=== PATIENT | male | born 1965 | race Two or more races ===

== ENCOUNTER 2017-03-18 17:05 | Emergency (ER) | payer OTHER ==
[~2017-03-18] VITALS: Ht 167.6 cm; Wt 85.9 kg
[~2017-03-18 17:05] MED LIST: ACET500C4 PO; AMIT25TA9 PO; DOCU250C21 PO; GABA-531 PO; GLIP10TA9 PO; HYDR25TA PO; METF500T4 PO; MORP15T PO; PROZ10 PO; SENN-30 PO; SIMV-260 PO
[2017-03-18 17:22] LABS: GLUCOSE,POINT OF CARE 200 MG/DL (70-110)
[2017-03-18 18:36] VITALS: BP 128/71
[2017-03-18] MEDS ORDERED: TraMADol HCL 50 MG TABLET PO ONE (18:45)
[2017-03-18] MEDS ORDERED: CEPHALEXIN MONOHYDRATE 500 MG CAPSULE PO ONE (18:45)
[2017-03-18] MEDS ORDERED: SULFAMETHOX/TRIMETH DS 800-160 MG/TABLET PO ONE (18:45)
== END 2017-03-18 18:56 | disposition home or self-care (01) ==
LOC: EMS 17:06
DX: L03.116 Cellulitis of left lower limb (principal); I10 Essential (primary) hypertension; E11.9 Type 2 diabetes mellitus without complications; F17.210 Nicotine dependence, cigarettes, uncomplicated
CPT/HCPCS: 82962; 99284

== ENCOUNTER 2017-08-11 22:54 | Inpatient (IN) | payer OTHER ==
[~2017-08-11] VITALS: Ht 167.6 cm; Wt 89.0 kg
[~2017-08-11 22:54] MED LIST changes: -DOCU250C21 PO; +DOCU250C90 PO; +SENN-175 PO; -SENN-30 PO
[2017-08-11 23:08] LABS: GLUCOSE,POINT OF CARE 308 MG/DL (70-110)
[2017-08-11] MEDS ORDERED: ONDANSETRON HCL 4 MG/2 ML VIAL ONE (23:55)
[2017-08-11] MEDS ORDERED: MORPHINE SULFATE 10 MG/ML SYRINGE ONE (23:56)
[2017-08-12] MEDS ORDERED: MORPHINE SULFATE 10 MG/ML SYRINGE IVP ONE
[2017-08-12] MEDS ORDERED: ONDANSETRON HCL 4 MG/2 ML VIAL IVP ONE
[2017-08-12 00:23] LABS: BASOPHILS # (AUTO) 0.02 K/uL (0.00-0.20); BASOPHILS % (AUTO) 0.2 % (0.0-2.0); EOSINOPHILS % (AUTO) 0.01 % (1.0-6.0); HEMATOCRIT 49.4 % (41-53); HEMOGLOBIN 16.9 g/dL (13.5-17.5); LYMPHOCYTES # (AUTO) 0.7 K/uL (1.0-4.8); LYMPHOCYTES % (AUTO) 5.4 % (22.0-44.0); MEAN CORPUSCULAR HEMOGLOBIN 30.7 pg (26.0-34.0); MEAN CORPUSCULAR HGB CONC 34.2 G/dL (31.0-37.0); MEAN CORPUSCULAR VOLUME 90 fL (80-100); MONOCYTES # (AUTO) 0.3 K/uL (0.1-1.0); MONOCYTES % (AUTO) 2.3 % (2.0-9.0); NEUTROPHILS # (AUTO) 11.5 K/uL (1.8-7.7); PLATELET COUNT (AUTO) 174 K/uL (150-450); RED BLOOD CELL COUNT(AUTO) 5.49 MIL/uL (4.50-5.90); RED CELL DISTRIBUTION WIDTH 13.2 % (11.5-14.5)
[2017-08-12 00:24] LABS: NEUTROPHILS % (AUTO) 92.2 % (40.0-70.0); WHITE BLOOD COUNT (AUTO) 13.9 K/uL (4.5-11.0)
[2017-08-12 00:33] LABS: ANION GAP 13 mmol/L (8-16); CALCIUM, TOTAL 10.5 mg/dL (8.8-10.5); CARBON DIOXIDE 29 mmol/L (22-29); CHLORIDE 93 mmol/L (98-107); CREATININE 1.15 mg/dL (0.60-1.30); GLOMERULAR FILTR. RATE CALC > 60 mL/min (>60); SODIUM SERUM 135 mmol/L (136-145); UREA NITROGEN, BLOOD 15 mg/dL (7-18)
[2017-08-12 00:39] LABS: ALANINE AMINOTRANSFERASE 34 U/L (12-78); ALBUMIN 4.7 g/dL (3.4-5.0); ASPARTATE AMINOTRANSFERASE 19 U/L (15-37); BILIRUBIN,TOTAL 0.4 mg/dL (0.1-1.0)
[2017-08-12] MEDS ORDERED: HYDROmorphone 2 MG/ML SYRINGE IVP ONE ×2 (01:15→16:00)
[2017-08-12] MEDS ORDERED: SODIUM CHLORIDE 0.9% 100 ML ONE (01:54)
[2017-08-12] MEDS ORDERED: IOVERSOL 320 MG/ML 100 ML VIAL ONE (01:55)
[2017-08-12] MEDS ORDERED: 0.9% SODIUM CHLORIDE 10 ML SYRINGE IVP PRN (02:30)
[2017-08-12] MEDS ORDERED: ONDANSETRON HCL 4 MG/2 ML VIAL IVP PRN ×2 (02:30→06:00)
[2017-08-12] MEDS ORDERED: ACETAMINOPHEN 325 MG TABLET PO PRN ×2 (02:30→06:00)
[2017-08-12 03:31] VITALS: BP 121/70
[2017-08-12] MEDS: HYDROmorphone 2 MG/ML SYRINGE IVP PRN ×7 (03:57→23:47)
[2017-08-12] MEDS ORDERED: MAGNESIUM HYDROXIDE SUSPENSION 30 ML UDCUP PO PRN (06:00)
[2017-08-12] MEDS ORDERED: ZOLPIDEM TARTRATE 5 MG TABLET PO PRN (06:00)
[2017-08-12] MEDS ORDERED: SODIUM CHLORIDE 0.9% 1,000 ML IV ONE ×2 (06:00)
[2017-08-12] MEDS ORDERED: DEXTROSE 50%-WATER 25 GM/50 ML SYRINGE IVP PRN (06:00)
[2017-08-12] MEDS ORDERED: HYDROCODONE/ACETAMINOPHEN 5-325 MG TABLET PO PRN (06:00)
[2017-08-12] MEDS ORDERED: MORPHINE SULFATE 2 MG/ML SYRINGE IVP PRN (06:00)
[2017-08-12] MEDS: INSULIN ASPART 100 UNITS/ML SQ PRN ×4 (06:22→21:40)
[2017-08-12 06:28] LABS: GLUCOSE COMMENT 1 Juice/Food/D50 Given; GLUCOSE,POINT OF CARE 223 MG/DL (70-110)
[2017-08-12 06:33] LABS: GLUCOSE COMMENT 1 Juice/Food/D50 Given; GLUCOSE,POINT OF CARE 223 MG/DL (70-110)
[2017-08-12] MEDS: DOCUSATE SODIUM 100 MG CAPSULE PO SCH ×2 (07:51→22:25)
[2017-08-12] MEDS: PANTOPRAZOLE SODIUM 40 MG DR TABLET PO SCH (07:51)
[2017-08-12] MEDS: HEPARIN SODIUM,PORCINE 5,000 UNITS/ML VIAL SQ SCH ×2 (07:52→16:09)
[2017-08-12 08:08] VITALS: BP 151/86
[2017-08-12 11:20] VITALS: BP 141/80
[2017-08-12 11:37] LABS: GLUCOSE,POINT OF CARE 225 MG/DL (70-110)
[2017-08-12 16:17] LABS: GLUCOSE,POINT OF CARE 234 MG/DL (70-110)
[2017-08-12 20:25] VITALS: BP 134/86
[2017-08-12 22:37] LABS: GLUCOSE COMMENT 1 Juice/Food/D50 Given; GLUCOSE,POINT OF CARE 211 MG/DL (70-110)
[2017-08-13] VITALS (7 sets, daily range): BP systolic 117–139; BP diastolic 59–86
[2017-08-13] MEDS: HYDROmorphone 2 MG/ML SYRINGE IVP PRN ×6 (03:32→23:27)
[2017-08-13] MEDS: SODIUM CHLORIDE 0.9% 1,000 ML IV SCH ×2 (05:07→15:33)
[2017-08-13] MEDS: INSULIN ASPART 100 UNITS/ML SQ PRN ×4 (05:13→20:56)
[2017-08-13 05:48] LABS: GLUCOSE COMMENT 1 Juice/Food/D50 Given; GLUCOSE,POINT OF CARE 207 MG/DL (70-110)
[2017-08-13 06:19] LABS: BASOPHILS # (AUTO) 0.02 K/uL (0.00-0.20); BASOPHILS % (AUTO) 0.2 % (0.0-2.0); EOSINOPHILS # (AUTO) 0.07 K/uL (0.00-0.70); EOSINOPHILS % (AUTO) 0.99 % (1.0-6.0); HEMATOCRIT 36.2 % (41-53); HEMOGLOBIN 12.9 g/dL (13.5-17.5); LYMPHOCYTES # (AUTO) 1.3 K/uL (1.0-4.8); LYMPHOCYTES % (AUTO) 16.8 % (22.0-44.0); MEAN CORPUSCULAR HEMOGLOBIN 31.4 pg (26.0-34.0); MEAN CORPUSCULAR HGB CONC 35.5 G/dL (31.0-37.0); MEAN CORPUSCULAR VOLUME 89 fL (80-100); MONOCYTES # (AUTO) 0.5 K/uL (0.1-1.0); NEUTROPHILS # (AUTO) 5.7 K/uL (1.8-7.7); PLATELET COUNT (AUTO) 142 K/uL (150-450); RED BLOOD CELL COUNT(AUTO) 4.09 MIL/uL (4.50-5.90); RED CELL DISTRIBUTION WIDTH 13.4 % (11.5-14.5); WHITE BLOOD COUNT (AUTO) 7.5 K/uL (4.5-11.0)
[2017-08-13 06:33] LABS: ANION GAP 7 mmol/L (8-16); CALCIUM, TOTAL 8.5 mg/dL (8.8-10.5); CARBON DIOXIDE 26 mmol/L (22-29); CHLORIDE 100 mmol/L (98-107); CREATININE 0.86 mg/dL (0.60-1.30); GLOMERULAR FILTR. RATE CALC > 60 mL/min (>60); POTASSIUM 3.8 mmol/L (3.5-5.1); SODIUM SERUM 133 mmol/L (136-145); UREA NITROGEN, BLOOD 27 mg/dL (7-18)
[2017-08-13] MEDS: HEPARIN SODIUM,PORCINE 5,000 UNITS/ML VIAL SQ SCH ×4 (07:35→23:27)
[2017-08-13] MEDS: DOCUSATE SODIUM 100 MG CAPSULE PO SCH ×2 (07:35→19:26)
[2017-08-13] MEDS: PANTOPRAZOLE SODIUM 40 MG DR TABLET PO SCH (07:36)
[2017-08-13 12:17] LABS: GLUCOSE,POINT OF CARE 173 MG/DL (70-110)
[2017-08-13 16:22] LABS: GLUCOSE,POINT OF CARE 189 MG/DL (70-110)
[2017-08-14] MEDS: HYDROmorphone 2 MG/ML SYRINGE IVP PRN ×5 (03:17→20:16)
[2017-08-14] MEDS: SODIUM CHLORIDE 0.9% 1,000 ML IV SCH ×2 (03:17→14:54)
[2017-08-14 04:13] LABS: GLUCOSE,POINT OF CARE 264 MG/DL (70-110)
[2017-08-14 05:09] VITALS: BP 128/78
[2017-08-14 06:01] LABS: BASOPHILS % (AUTO) 0.4 % (0.0-2.0); EOSINOPHILS % (AUTO) 2.3 % (1.0-6.0); HEMOGLOBIN 13.1 g/dL (13.5-17.5); LYMPHOCYTES # (AUTO) 1.5 K/uL (1.0-4.8); MEAN CORPUSCULAR HEMOGLOBIN 31.5 pg (26.0-34.0); MEAN CORPUSCULAR HGB CONC 35.3 G/dL (31.0-37.0); MEAN CORPUSCULAR VOLUME 89 fL (80-100); MONOCYTES # (AUTO) 0.4 K/uL (0.1-1.0); MONOCYTES % (AUTO) 8.3 % (2.0-9.0); PLATELET COUNT (AUTO) 167 K/uL (150-450); RED BLOOD CELL COUNT(AUTO) 4.15 MIL/uL (4.50-5.90); RED CELL DISTRIBUTION WIDTH 13.1 % (11.5-14.5); WHITE BLOOD COUNT (AUTO) 5.2 K/uL (4.5-11.0)
[2017-08-14] MEDS: INSULIN ASPART 100 UNITS/ML SQ PRN ×2 (06:15→21:40)
[2017-08-14] MEDS: HEPARIN SODIUM,PORCINE 5,000 UNITS/ML VIAL SQ SCH ×2 (07:36→16:00)
[2017-08-14 08:09] VITALS: BP 142/95
[2017-08-14] MEDS: PANTOPRAZOLE SODIUM 40 MG DR TABLET PO SCH (09:11)
[2017-08-14] MEDS: DOCUSATE SODIUM 100 MG CAPSULE PO SCH ×2 (09:11→20:16)
[2017-08-14 11:58] VITALS: BP 129/79
[2017-08-14 12:16] LABS: MAGNESIUM 2.8 mg/dL (1.80-2.40)
[2017-08-14 12:48] LABS: GLUCOSE,POINT OF CARE 124 MG/DL (70-110)
[2017-08-14] MEDS: BISACODYL 10 MG RECTAL RECTAL SUPPOSITORY PR PRN (14:48)
[2017-08-14 15:20] VITALS: BP 119/76
[2017-08-14 18:18] LABS: GLUCOSE,POINT OF CARE 149 MG/DL (70-110)
[2017-08-14 20:03] LABS: GLUCOSE,POINT OF CARE 145 MG/DL (70-110)
[2017-08-14 20:22] VITALS: BP 127/83
[2017-08-14 23:28] VITALS: BP 129/75
[2017-08-15] MEDS: HEPARIN SODIUM,PORCINE 5,000 UNITS/ML VIAL SQ SCH ×3 (00:10→16:00)
[2017-08-15] MEDS: HYDROmorphone 2 MG/ML SYRINGE IVP PRN ×5 (00:10→15:59)
[2017-08-15 00:22] LABS: GLUCOSE,POINT OF CARE 204 MG/DL (70-110)
[2017-08-15] MEDS: SODIUM CHLORIDE 0.9% 1,000 ML IV SCH (03:59)
[2017-08-15 05:06] VITALS: BP 139/82
[2017-08-15 05:17] LABS: GLUCOSE,POINT OF CARE 132 MG/DL (70-110)
[2017-08-15 07:22] LABS: BASOPHILS % (AUTO) 0.5 % (0.0-2.0); EOSINOPHILS % (AUTO) 3.5 % (1.0-6.0); HEMOGLOBIN 12.1 g/dL (13.5-17.5); LYMPHOCYTES # (AUTO) 1.5 K/uL (1.0-4.8); LYMPHOCYTES % (AUTO) 27.3 % (22.0-44.0); MEAN CORPUSCULAR HEMOGLOBIN 31.7 pg (26.0-34.0); MEAN CORPUSCULAR HGB CONC 35.5 G/dL (31.0-37.0); MEAN CORPUSCULAR VOLUME 89 fL (80-100); MONOCYTES # (AUTO) 0.4 K/uL (0.1-1.0); MONOCYTES % (AUTO) 7.3 % (2.0-9.0); NEUTROPHILS # (AUTO) 3.4 K/uL (1.8-7.7); NEUTROPHILS % (AUTO) 61.4 % (40.0-70.0); PLATELET COUNT (AUTO) 165 K/uL (150-450); RED BLOOD CELL COUNT(AUTO) 3.81 MIL/uL (4.50-5.90); RED CELL DISTRIBUTION WIDTH 13.3 % (11.5-14.5); WHITE BLOOD COUNT (AUTO) 5.6 K/uL (4.5-11.0)
[2017-08-15] MEDS: DOCUSATE SODIUM 100 MG CAPSULE PO SCH (07:58)
[2017-08-15 07:59] VITALS: BP 129/80
[2017-08-15] MEDS: PANTOPRAZOLE SODIUM 40 MG DR TABLET PO SCH (07:59)
[2017-08-15 11:07] LABS: GLUCOSE COMMENT 1 Received Meds; GLUCOSE,POINT OF CARE 185 MG/DL (70-110)
[2017-08-15] MEDS: INSULIN ASPART 100 UNITS/ML SQ PRN (11:28)
[2017-08-15] MEDS: BISACODYL 10 MG RECTAL RECTAL SUPPOSITORY PR PRN (11:34)
[2017-08-15 11:58] VITALS: BP 151/88
[2017-08-15] MEDS ORDERED: KETO10TA2 PO (14:03)
== END 2017-08-15 16:20 | disposition home or self-care (01) | DRG 282 ==
LOC: EMS 22:55 → 6N 08-12 02:30
PROVIDERS: ADMIT Internal Medicine; ATTEND Internal Medicine
DX: K85.90 Acute pancreatitis without necrosis or infection, unspecified (principal); R65.10 Systemic inflammatory response syndrome (SIRS) of non-infectious origin without acute organ dysfunction; F11.20 Opioid dependence, uncomplicated; I10 Essential (primary) hypertension; E11.9 Type 2 diabetes mellitus without complications; D64.9 Anemia, unspecified; E78.5 Hyperlipidemia, unspecified; F17.210 Nicotine dependence, cigarettes, uncomplicated; I25.10 Atherosclerotic heart disease of native coronary artery without angina pectoris; M19.90 Unspecified osteoarthritis, unspecified site; Z82.61 Family history of arthritis; Z79.899 Other long term (current) drug therapy; Z79.84 Long term (current) use of oral hypoglycemic drugs; Z83.3 Family history of diabetes mellitus; Z84.89 Family history of other specified conditions; Z81.8 Family history of other mental and behavioral disorders; Z83.79 Family history of other diseases of the digestive system
CPT/HCPCS: 74177; 82962; 83735; 96361; 96374; 96375; 99285; J1170; J1644; J2270; J2405; J7030; J7050

== ENCOUNTER 2017-08-19 22:57 | Emergency (ER) | payer OTHER ==
[~2017-08-19] VITALS: Ht 172.7 cm; Wt 83.8 kg
[~2017-08-19 22:57] MED LIST changes: +KETO10TA2 PO
[2017-08-19] MEDS ORDERED: LISI-660 PO (23:04)
[2017-08-19 23:07] LABS: GLUCOSE,POINT OF CARE 233 MG/DL (70-110)
[2017-08-19] MEDS ORDERED: ONDANSETRON HCL 4 MG/2 ML VIAL IVP ONE (23:15)
[2017-08-19] MEDS ORDERED: SODIUM CHLORIDE 0.9% 1,000 ML IV ONE (23:15)
[2017-08-19] MEDS ORDERED: MORPHINE SULFATE 4 MG/ML SYRINGE IVP ONE (23:30)
[2017-08-19 23:46] LABS: BASOPHILS % (AUTO) 0.2 % (0.0-2.0); EOSINOPHILS % (AUTO) 1.4 % (1.0-6.0); HEMATOCRIT 46.5 % (41-53); HEMOGLOBIN 15.8 g/dL (13.5-17.5); LYMPHOCYTES # (AUTO) 1.2 K/uL (1.0-4.8); LYMPHOCYTES % (AUTO) 14.1 % (22.0-44.0); MEAN CORPUSCULAR HEMOGLOBIN 30.8 pg (26.0-34.0); MEAN CORPUSCULAR VOLUME 90 fL (80-100); MONOCYTES # (AUTO) 0.4 K/uL (0.1-1.0); MONOCYTES % (AUTO) 4.4 % (2.0-9.0); NEUTROPHILS # (AUTO) 6.6 K/uL (1.8-7.7); NEUTROPHILS % (AUTO) 79.9 % (40.0-70.0); PLATELET COUNT (AUTO) 246 K/uL (150-450); RED BLOOD CELL COUNT(AUTO) 5.14 MIL/uL (4.50-5.90); RED CELL DISTRIBUTION WIDTH 13.6 % (11.5-14.5); WHITE BLOOD COUNT (AUTO) 8.2 K/uL (4.5-11.0)
[2017-08-19 23:49] LABS: ANION GAP 10 mmol/L (8-16); CARBON DIOXIDE 25 mmol/L (22-29); CHLORIDE 95 mmol/L (98-107); CREATININE 0.84 mg/dL (0.60-1.30); GLOMERULAR FILTR. RATE CALC > 60 mL/min (>60); POTASSIUM 4.2 mmol/L (3.5-5.1); SODIUM SERUM 130 mmol/L (136-145); UREA NITROGEN, BLOOD 12 mg/dL (7-18)
[2017-08-20 00:03] LABS: ALANINE AMINOTRANSFERASE 39 U/L (12-78); ALBUMIN 4.6 g/dL (3.4-5.0); ASPARTATE AMINOTRANSFERASE 16 U/L (15-37); BILIRUBIN,TOTAL 0.4 mg/dL (0.1-1.0)
[2017-08-20] MEDS ORDERED: KETOROLAC TROMETHAMINE 30 MG/ML VIAL IVP ONE (00:45)
[2017-08-20] MEDS ORDERED: MORPHINE SULFATE 4 MG/ML SYRINGE IVP ONE (02:15)
[2017-08-20 02:29] LABS: APPEARANCE,URINE CLEAR (CLEAR); GLUCOSE, URINE (UA) 500 mg/dL (NEGATIVE); KETONES,URINE NEGATIVE (NEGATIVE); LEUKOCYTE ESTERASE ,URINE NEGATIVE (NEGATIVE); OCCULT BLOOD,URINE NEGATIVE (NEGATIVE); PH,URINE 7.5 (5.0-8.0); PROTEIN,URINE NEGATIVE (NEGATIVE)
[2017-08-20 02:31] LABS: ADD UA MICROSCOPIC YES
[2017-08-20 02:55] LABS: RBC,URINE 0-2 /HPF (0-2); WBC,URINE None Seen /HPF (0-5)
[2017-08-20 03:27] VITALS: BP 134/79
== END 2017-08-20 03:33 | disposition home or self-care (01) ==
LOC: EMS 22:58
DX: K31.84 Gastroparesis (principal); E11.43 Type 2 diabetes mellitus with diabetic autonomic (poly)neuropathy; I10 Essential (primary) hypertension; F17.210 Nicotine dependence, cigarettes, uncomplicated
CPT/HCPCS: 36415; 76700; 80053; 80307; 81001; 82962; 83690; 84484; 85025; 93005; 96361; 96374; 96375; 99285; J1885; J2270 ×2; J2405; J7030

== ENCOUNTER 2017-08-20 12:36 | Emergency (ER) | payer OTHER ==
[~2017-08-20] VITALS: Ht 170.2 cm; Wt 90.0 kg
[~2017-08-20 12:36] MED LIST changes: -ACET500C4 PO; -AMIT25TA9 PO; -DOCU250C90 PO; -HYDR25TA PO; -KETO10TA2 PO; +LISI-660 PO; -MORP15T PO; -PROZ10 PO; -SENN-175 PO; -SIMV-260 PO
[2017-08-20 13:07] LABS: GLUCOSE,POINT OF CARE 230 MG/DL (70-110)
[2017-08-20 13:11] LABS: BASOPHILS # (AUTO) 0.06 K/uL (0.00-0.20); BASOPHILS % (AUTO) 0.9 % (0.0-2.0); EOSINOPHILS # (AUTO) 0.18 K/uL (0.00-0.70); EOSINOPHILS % (AUTO) 2.56 % (1.0-6.0); HEMATOCRIT 42.6 % (41-53); HEMOGLOBIN 14.6 g/dL (13.5-17.5); LYMPHOCYTES # (AUTO) 1.3 K/uL (1.0-4.8); LYMPHOCYTES % (AUTO) 18.6 % (22.0-44.0); MEAN CORPUSCULAR HEMOGLOBIN 30.8 pg (26.0-34.0); MEAN CORPUSCULAR HGB CONC 34.2 G/dL (31.0-37.0); MEAN CORPUSCULAR VOLUME 90 fL (80-100); MONOCYTES # (AUTO) 0.5 K/uL (0.1-1.0); MONOCYTES % (AUTO) 7.6 % (2.0-9.0); NEUTROPHILS # (AUTO) 4.9 K/uL (1.8-7.7); NEUTROPHILS % (AUTO) 70.3 % (40.0-70.0); PLATELET COUNT (AUTO) 216 K/uL (150-450); RED BLOOD CELL COUNT(AUTO) 4.72 MIL/uL (4.50-5.90); RED CELL DISTRIBUTION WIDTH 13.9 % (11.5-14.5); WHITE BLOOD COUNT (AUTO) 6.9 K/uL (4.5-11.0)
[2017-08-20] MEDS ORDERED: SODIUM CHLORIDE 0.9% 1,000 ML IV ONE (13:15)
[2017-08-20] MEDS ORDERED: ONDANSETRON HCL 4 MG/2 ML VIAL IVP ONE (13:15)
[2017-08-20 13:25] LABS: ANION GAP 8 mmol/L (8-16); CALCIUM, TOTAL 8.6 mg/dL (8.8-10.5); CARBON DIOXIDE 26 mmol/L (22-29); CHLORIDE 97 mmol/L (98-107); CREATININE 0.79 mg/dL (0.60-1.30); GLOMERULAR FILTR. RATE CALC > 60 mL/min (>60); POTASSIUM 4.1 mmol/L (3.5-5.1); SODIUM SERUM 131 mmol/L (136-145); UREA NITROGEN, BLOOD 17 mg/dL (7-18)
[2017-08-20 13:33] LABS: ALANINE AMINOTRANSFERASE 36 U/L (12-78); ALBUMIN 4.1 g/dL (3.4-5.0); ASPARTATE AMINOTRANSFERASE 15 U/L (15-37); BILIRUBIN,TOTAL 0.5 mg/dL (0.1-1.0); TOTAL PROTEIN, SERUM 7.6 g/dL (6.4-8.2)
[2017-08-20] MEDS ORDERED: MORPHINE SULFATE 4 MG/ML SYRINGE IM ONE (14:30)
[2017-08-20] MEDS ORDERED: LORazepam 2 MG/ML VIAL IM ONE (14:30)
[2017-08-20] MEDS ORDERED: ONDANSETRON HCL 4 MG/2 ML VIAL IM ONE (14:30)
[2017-08-20 17:45] VITALS: BP 130/85
[2017-08-20] MEDS ORDERED: KETOROLAC TROMETHAMINE 30 MG/ML VIAL IM ONE (17:45)
== END 2017-08-20 17:50 | disposition home or self-care (01) ==
LOC: EMS 12:37
DX: R10.84 Generalized abdominal pain (principal); R11.2 Nausea with vomiting, unspecified; E11.9 Type 2 diabetes mellitus without complications; I10 Essential (primary) hypertension; F17.210 Nicotine dependence, cigarettes, uncomplicated
CPT/HCPCS: 36415; 74022; 80053; 80307; 82962; 83690; 85025; 93005; 96372; 99285; G0480; J1885; J2060; J2270; J2405; J7030

== ENCOUNTER 2017-08-22 00:39 | Inpatient (IN) | payer OTHER ==
[2017-08-22] VITALS (8 sets, daily range): BP systolic 108–144; BP diastolic 64–89
[~2017-08-22] VITALS: Ht 167.6 cm; Wt 90.9 kg
[2017-08-22] MEDS ORDERED: KETO10TA2 PO (00:48)
[2017-08-22] MEDS ORDERED: LORazepam 2 MG/ML VIAL IVP ONE (01:15)
[2017-08-22] MEDS ORDERED: SODIUM CHLORIDE 0.9% 2,000 ML IV ONE (01:15)
[2017-08-22] MEDS ORDERED: HYDROmorphone 2 MG/ML SYRINGE IVP ONE ×2 (01:15→02:30)
[2017-08-22] MEDS ORDERED: ONDANSETRON HCL 8 MG in DEXTROSE 5%-WATER 50 ML IV ONE (01:15)
[2017-08-22 01:44] LABS: BASOPHILS # (AUTO) 0.01 K/uL (0.00-0.20); BASOPHILS % (AUTO) 0.2 % (0.0-2.0); EOSINOPHILS # (AUTO) 0.09 K/uL (0.00-0.70); EOSINOPHILS % (AUTO) 1.49 % (1.0-6.0); HEMATOCRIT 41.5 % (41-53); HEMOGLOBIN 14.2 g/dL (13.5-17.5); LYMPHOCYTES % (AUTO) 16.3 % (22.0-44.0); MEAN CORPUSCULAR HEMOGLOBIN 30.7 pg (26.0-34.0); MEAN CORPUSCULAR HGB CONC 34.2 G/dL (31.0-37.0); MEAN CORPUSCULAR VOLUME 90 fL (80-100); MONOCYTES # (AUTO) 0.4 K/uL (0.1-1.0); MONOCYTES % (AUTO) 7.2 % (2.0-9.0); NEUTROPHILS # (AUTO) 4.4 K/uL (1.8-7.7); NEUTROPHILS % (AUTO) 74.8 % (40.0-70.0); PLATELET COUNT (AUTO) 189 K/uL (150-450); RED BLOOD CELL COUNT(AUTO) 4.62 MIL/uL (4.50-5.90); RED CELL DISTRIBUTION WIDTH 13.5 % (11.5-14.5); WHITE BLOOD COUNT (AUTO) 5.9 K/uL (4.5-11.0)
[2017-08-22 01:46] LABS: APPEARANCE,URINE CLEAR (CLEAR); GLUCOSE, URINE (UA) >=1000 mg/dL (NEGATIVE); KETONES,URINE NEGATIVE (NEGATIVE); LEUKOCYTE ESTERASE ,URINE NEGATIVE (NEGATIVE); OCCULT BLOOD,URINE NEGATIVE (NEGATIVE); PH,URINE 6.5 (5.0-8.0); PROTEIN,URINE NEGATIVE (NEGATIVE)
[2017-08-22 01:50] LABS: ADD UA MICROSCOPIC YES
[2017-08-22 01:51] LABS: ANION GAP 10 mmol/L (8-16); CALCIUM, TOTAL 8.7 mg/dL (8.8-10.5); CARBON DIOXIDE 25 mmol/L (22-29); CHLORIDE 98 mmol/L (98-107); GLOMERULAR FILTR. RATE CALC > 60 mL/min (>60); SODIUM SERUM 133 mmol/L (136-145); UREA NITROGEN, BLOOD 20 mg/dL (7-18)
[2017-08-22 01:56] LABS: ALANINE AMINOTRANSFERASE 33 U/L (12-78); ALBUMIN 4.1 g/dL (3.4-5.0); ASPARTATE AMINOTRANSFERASE 19 U/L (15-37); BILIRUBIN,TOTAL 0.4 mg/dL (0.1-1.0)
[2017-08-22 02:24] LABS: RBC,URINE 0-2 /HPF (0-2); WBC,URINE 0-2 /HPF (0-5)
[2017-08-22] MEDS ORDERED: PANTOPRAZOLE SODIUM 40 MG/VIAL IVP ONE (02:30)
[2017-08-22] MEDS ORDERED: ACETAMINOPHEN 325 MG TABLET PO PRN ×2 (02:30→08:15)
[2017-08-22] MEDS ORDERED: ONDANSETRON HCL 4 MG/2 ML VIAL IVP PRN ×2 (02:30→08:15)
[2017-08-22] MEDS ORDERED: POTASSIUM CHL 20 MEQ/0.45% NS 1,000 ML IV ONE (02:30)
[2017-08-22] MEDS ORDERED: 0.9% SODIUM CHLORIDE 10 ML SYRINGE IVP PRN (02:30)
[2017-08-22] MEDS ORDERED: IOVERSOL 350 MG/ML 100 ML VIAL ONE (02:43)
[2017-08-22] MEDS ORDERED: BARIUM SULFATE 0.1% SUSPENSION 450 ML BOTTLE PO ONE (02:45)
[2017-08-22] MEDS: HYDROmorphone 2 MG/ML SYRINGE IVP PRN ×3 (07:09→20:27)
[2017-08-22] MEDS ORDERED: DEXTROSE 50%-WATER 25 GM/50 ML SYRINGE IVP PRN (08:15)
[2017-08-22] MEDS ORDERED: POTASSIUM CHLORIDE 20 MEQ ER TABLET PO PRN (08:15)
[2017-08-22] MEDS ORDERED: MAGNESIUM HYDROXIDE SUSPENSION 30 ML UDCUP PO PRN (08:15)
[2017-08-22] MEDS ORDERED: POTASSIUM CHL 10 MEQ/WATER 50 ML IV PRN (08:15)
[2017-08-22] MEDS: PANTOPRAZOLE SODIUM 40 MG/VIAL IVP SCH (09:15)
[2017-08-22] MEDS: DOCUSATE SODIUM 100 MG CAPSULE PO SCH ×2 (09:15→19:27)
[2017-08-22] MEDS: INSULIN ASPART 100 UNITS/ML SQ PRN ×4 (09:29→20:38)
[2017-08-22 14:28] LABS: GLUCOSE,POINT OF CARE 190 MG/DL (70-110)
[2017-08-22 14:32] LABS: GLUCOSE,POINT OF CARE 151 MG/DL (70-110)
[2017-08-22] MEDS: MORPHINE SULFATE 2 MG/ML SYRINGE IVP PRN ×2 (15:13→19:27)
[2017-08-22 20:02] LABS: GLUCOSE,POINT OF CARE 172 MG/DL (70-110)
[2017-08-22 20:54] LABS: GLUCOSE,POINT OF CARE 234 MG/DL (70-110)
[2017-08-23] MEDS: HYDROmorphone 2 MG/ML SYRINGE IVP PRN ×6 (00:04→21:24)
[2017-08-23 03:58] VITALS: BP 144/94
[2017-08-23 07:32] LABS: GLUCOSE,POINT OF CARE 176 MG/DL (70-110)
[2017-08-23 08:00] VITALS: BP 139/79
[2017-08-23] MEDS: PANTOPRAZOLE SODIUM 40 MG/VIAL IVP SCH ×2 (08:36→21:26)
[2017-08-23] MEDS: DOCUSATE SODIUM 100 MG CAPSULE PO SCH ×2 (09:00→20:03)
[2017-08-23] MEDS ORDERED: SODIUM CHLORIDE 0.9% 1,000 ML IV ONE ×2 (10:45→11:00)
[2017-08-23 13:16] VITALS: BP 125/78
[2017-08-23 16:04] VITALS: BP 115/72
[2017-08-23] MEDS: INSULIN ASPART 100 UNITS/ML SQ PRN (17:28)
[2017-08-23 17:35] VITALS: BP 130/78
[2017-08-23 20:00] VITALS: BP 127/75
[2017-08-24] VITALS: BP 127/72
[2017-08-24] MEDS: HYDROmorphone 2 MG/ML SYRINGE IVP PRN ×3 (01:20→09:26)
[2017-08-24] MEDS ORDERED: PROPOFOL 1% 20 ML VIAL IVP ONE (01:51)
[2017-08-24 04:27] LABS: GLUCOSE,POINT OF CARE 218 MG/DL (70-110)
[2017-08-24 04:27] LABS: GLUCOSE,POINT OF CARE 138 MG/DL (70-110)
[2017-08-24 05:38] VITALS: BP 134/86
[2017-08-24 07:03] LABS: GLUCOSE,POINT OF CARE 124 MG/DL (70-110)
[2017-08-24 08:07] LABS: HEPATITIS Bs ANTIGEN SCREEN P Negative (Negative); HEPATITIS C AB SCREEN >11.0 s/co ratio (0.0-0.9)
[2017-08-24 08:39] VITALS: BP 143/93
[2017-08-24] MEDS: DOCUSATE SODIUM 100 MG CAPSULE PO SCH (09:16)
[2017-08-24] MEDS: PANTOPRAZOLE SODIUM 40 MG/VIAL IVP SCH (09:27)
[2017-08-24] MEDS ORDERED: OMEP20 PO (10:52)
[2017-08-24] MEDS ORDERED: SUCR1TAB PO (10:54)
== END 2017-08-24 11:25 | disposition home or self-care (01) | DRG 241 ==
LOC: EMS 00:39 → 4E 05:56
PROVIDERS: ADMIT Internal Medicine; ATTEND Internal Medicine
PROC: 0DB68ZX Excision of Stomach, Via Natural or Artificial Opening Endoscopic, Diagnostic (ICD-10-PCS; principal; 2017-08-23 12:00)
DX: K26.9 Duodenal ulcer, unspecified as acute or chronic, without hemorrhage or perforation (principal); E11.43 Type 2 diabetes mellitus with diabetic autonomic (poly)neuropathy; K76.0 Fatty (change of) liver, not elsewhere classified; E11.65 Type 2 diabetes mellitus with hyperglycemia; F19.10 Other psychoactive substance abuse, uncomplicated; K29.70 Gastritis, unspecified, without bleeding; B19.20 Unspecified viral hepatitis C without hepatic coma; I10 Essential (primary) hypertension; J44.9 Chronic obstructive pulmonary disease, unspecified; F17.210 Nicotine dependence, cigarettes, uncomplicated; Z76.5 Malingerer [conscious simulation]; Z90.49 Acquired absence of other specified parts of digestive tract; Z91.19 Patient's noncompliance with other medical treatment and regimen; Z79.84 Long term (current) use of oral hypoglycemic drugs
CPT/HCPCS: 74177; 80074; 82105; 82962; 83036; 86301; 87081; 88305; 88312; 93005; 96361; 96365; 96375; 96376; 99285; C9113; G0480; J1170; J2060; J2270; J2405; J2704; J3480; J7030; J7060

== ENCOUNTER 2018-01-11 20:39 | Emergency (ER) | payer OTHER ==
[~2018-01-11] VITALS: Ht 167.6 cm; Wt 80.0 kg
[~2018-01-11 20:39] MED LIST changes: +OMEP20 PO; +SUCR1TAB PO
[2018-01-11 21:22] LABS: GLUCOSE,POINT OF CARE 425 MG/DL (70-110)
[2018-01-11] MEDS ORDERED: HYDROCODONE/ACETAMINOPHEN 5-325 MG TABLET PO ONE (22:15)
[2018-01-11 22:55] VITALS: BP 133/77
== END 2018-01-11 23:04 | disposition home or self-care (01) ==
LOC: EMS 20:41
DX: S92.311A Displaced fracture of first metatarsal bone, right foot, initial encounter for closed fracture (principal); S92.331A Displaced fracture of third metatarsal bone, right foot, initial encounter for closed fracture; S92.341A Displaced fracture of fourth metatarsal bone, right foot, initial encounter for closed fracture; E11.9 Type 2 diabetes mellitus without complications; I10 Essential (primary) hypertension; F17.210 Nicotine dependence, cigarettes, uncomplicated; Z79.84 Long term (current) use of oral hypoglycemic drugs; Z90.49 Acquired absence of other specified parts of digestive tract; W22.8XXA Striking against or struck by other objects, initial encounter; Y93.89 Activity, other specified; Y92.89 Other specified places as the place of occurrence of the external cause; Y99.8 Other external cause status
CPT/HCPCS: 29515; 82962; 99284

== ENCOUNTER 2018-03-12 04:10 | Emergency (ER) | payer OTHER ==
[~2018-03-12] VITALS: Ht 167.6 cm; Wt 75.0 kg
[~2018-03-12 04:10] MED LIST changes: -METF500T4 PO; +METF500T6 PO
[2018-03-12 04:33] LABS: GLUCOSE,POINT OF CARE 470 MG/DL (70-110)
[2018-03-12] MEDS ORDERED: HEPARIN SODIUM,PORCINE 100 UNITS/ML 5 ML VIAL IVP ONE (06:15)
[2018-03-12] MEDS ORDERED: INSULIN HUMAN NPH-REGULAR 70/30 100 UNITS/ML SQ ONE (06:30)
[2018-03-12] MEDS ORDERED: HYDROCODONE/ACETAMINOPHEN 10-325 MG TABLET PO ONE (06:30)
[2018-03-12] MEDS ORDERED: ONDANSETRON HCL 4 MG TABLET PO ONE (06:30)
[2018-03-12 06:47] LABS: GLUCOSE,POINT OF CARE 430 MG/DL (70-110)
[2018-03-12 07:43] LABS: GLUCOSE,POINT OF CARE 460 MG/DL (70-110)
[2018-03-12 08:23] LABS: GLUCOSE,POINT OF CARE 409 MG/DL (70-110)
[2018-03-12 08:24] VITALS: BP 121/84
== END 2018-03-12 08:31 | disposition left against medical advice (07) ==
LOC: EMS 04:11
DX: G62.9 Polyneuropathy, unspecified (principal); E11.9 Type 2 diabetes mellitus without complications; I10 Essential (primary) hypertension; F17.210 Nicotine dependence, cigarettes, uncomplicated
CPT/HCPCS: 82962; 96372; 99284; J1815; Q0162; 99283; J1642

== ENCOUNTER 2018-04-12 19:07 | Emergency (ER) | payer OTHER ==
[~2018-04-12] VITALS: Ht 167.6 cm; Wt 77.3 kg
[~2018-04-12 19:07] MED LIST changes: -SUCR1TAB PO
[2018-04-12 20:13] LABS: BASOPHILS % (AUTO) 0.4 % (0.0-2.0); EOSINOPHILS % (AUTO) 1.3 % (1.0-6.0); HEMATOCRIT 40.8 % (41-53); HEMOGLOBIN 14.5 g/dL (13.5-17.5); LYMPHOCYTES # (AUTO) 0.9 K/uL (1.0-4.8); LYMPHOCYTES % (AUTO) 13.5 % (22.0-44.0); MEAN CORPUSCULAR HEMOGLOBIN 30.5 pg (26.0-34.0); MEAN CORPUSCULAR HGB CONC 35.7 G/dL (31.0-37.0); MEAN CORPUSCULAR VOLUME 85 fL (80-100); MONOCYTES # (AUTO) 0.4 K/uL (0.1-1.0); MONOCYTES % (AUTO) 6.3 % (2.0-9.0); NEUTROPHILS # (AUTO) 5.4 K/uL (1.8-7.7); NEUTROPHILS % (AUTO) 78.5 % (40.0-70.0); PLATELET COUNT (AUTO) 177 K/uL (150-450); RED BLOOD CELL COUNT(AUTO) 4.78 MIL/uL (4.50-5.90); RED CELL DISTRIBUTION WIDTH 13.7 % (11.5-14.5)
[2018-04-12] MEDS ORDERED: SODIUM CHLORIDE 0.9% 2,000 ML IV ONE (20:30)
[2018-04-12] MEDS ORDERED: FentaNYL CITRATE-PF 100 MCG/2 ML VIAL IVP ONE ×2 (20:30→21:15)
[2018-04-12] MEDS ORDERED: ONDANSETRON HCL 4 MG/2 ML VIAL IVP ONE (20:30)
[2018-04-12] MEDS ORDERED: BARIUM SULFATE 0.1% SUSPENSION 450 ML BOTTLE PO ONE (20:30)
[2018-04-12 20:31] LABS: ANION GAP 11 mmol/L (8-16); CARBON DIOXIDE 23 mmol/L (22-29); CHLORIDE 98 mmol/L (98-107); CREATININE 0.98 mg/dL (0.60-1.30); GLOMERULAR FILTR. RATE CALC > 60 mL/min (>60); GLUCOSE,RANDOM 280 mg/dL (70-110); POTASSIUM 4.1 mmol/L (3.5-5.1); SODIUM SERUM 132 mmol/L (136-145); UREA NITROGEN, BLOOD 10 mg/dL (7-18)
[2018-04-12 20:37] LABS: ALANINE AMINOTRANSFERASE 34 U/L (12-78); ALBUMIN 4.2 g/dL (3.4-5.0); ALKALINE PHOSPHATASE 96 U/L (46-116); ASPARTATE AMINOTRANSFERASE 17 U/L (15-37); BILIRUBIN,TOTAL 0.3 mg/dL (0.1-1.0); LIPASE 130 U/L (73-393)
[2018-04-12 20:39] LABS: LACTIC ACID 0.9 mmol/L (0.4-2.0)
[2018-04-12 20:53] LABS: B-TYPE NATRIURETIC PEPTIDE < 5 pg/mL (0-100)
[2018-04-12 22:13] LABS: APPEARANCE,URINE CLEAR (CLEAR); BILIRUBIN,URINE NEGATIVE (NEGATIVE); GLUCOSE, URINE (UA) >=1000 mg/dL (NEGATIVE); KETONES,URINE NEGATIVE (NEGATIVE); LEUKOCYTE ESTERASE ,URINE NEGATIVE (NEGATIVE); NITRATE,URINE NEGATIVE (NEGATIVE); OCCULT BLOOD,URINE NEGATIVE (NEGATIVE); PROTEIN,URINE NEGATIVE (NEGATIVE); UROBILINOGEN,URINE 0.2 mg/dL (<=1.0)
[2018-04-12] MEDS ORDERED: IOVERSOL 320 MG/ML 100 ML VIAL ONE (22:17)
[2018-04-12] MEDS ORDERED: SODIUM CHLORIDE 0.9% 100 ML ONE (22:18)
[2018-04-12 22:26] LABS: BACTERIA,URINE None Seen /HPF (None Seen); RBC,URINE 0-2 /HPF (0-2); WBC,URINE None Seen /HPF (0-5)
[2018-04-12 22:27] LABS: SQUAMOUS EPITHELIAL CELL,UR None Seen /LPF (None Seen)
[2018-04-12 22:28] LABS: AMPHET/METH SCREEN,URINE NEGATIVE (NEGATIVE); BARBITURATE SCREEN, URINE NEGATIVE (NEGATIVE); BENZODIAZEPINES SCREEN,URINE NEGATIVE (NEGATIVE); CANNABINOID SCREEN,URINE NEGATIVE (NEGATIVE); COCAINE SCREEN,URINE NEGATIVE (NEGATIVE); METHADONE SCREEN, URINE NEGATIVE (NEGATIVE); OPIATE SCREEN,URINE POSITIVE (NEGATIVE)
[2018-04-12 22:29] LABS: PHENCYCLIDINE SCREEN,URINE NEGATIVE (NEGATIVE)
[2018-04-12] MEDS ORDERED: PB/HYOSCY/ATR/SCOP/LIDO/MAALOX 55 ML BOTTLE PO ONE (22:45)
[2018-04-13] MEDS ORDERED: PANTOPRAZOLE SODIUM 40 MG/VIAL IVP ONE (00:45)
[2018-04-13 01:08] VITALS: BP 131/65
== END 2018-04-13 01:36 | disposition home or self-care (01) ==
LOC: EMS 19:08
DX: K29.70 Gastritis, unspecified, without bleeding (principal); K29.80 Duodenitis without bleeding; K27.9 Peptic ulcer, site unspecified, unspecified as acute or chronic, without hemorrhage or perforation; G89.29 Other chronic pain; I10 Essential (primary) hypertension; E11.9 Type 2 diabetes mellitus without complications; F17.210 Nicotine dependence, cigarettes, uncomplicated
CPT/HCPCS: 36415; 71045; 74177; 80053; 80307; 81001; 83605; 83690; 83880; 84484; 85025; 93005; 96361; 96374; 96375; 96376; 99291; 99406; C9113; G0480; J2405; J3010; J7030; J7050; Q9967; Z7610 ×2

== ENCOUNTER 2018-05-11 18:57 | Emergency (ER) | payer OTHER ==
[~2018-05-11] VITALS: Ht 167.6 cm; Wt 70.0 kg
[2018-05-11 19:24] LABS: GLUCOSE,POINT OF CARE 293 MG/DL (70-110)
[2018-05-11 19:46] LABS: BASOPHILS % (AUTO) 0.4 % (0.0-2.0); EOSINOPHILS % (AUTO) 0.2 % (1.0-6.0); HEMATOCRIT 43.3 % (41-53); HEMOGLOBIN 15.4 g/dL (13.5-17.5); LYMPHOCYTES # (AUTO) 1.1 K/uL (1.0-4.8); LYMPHOCYTES % (AUTO) 16.9 % (22.0-44.0); MEAN CORPUSCULAR HGB CONC 35.5 G/dL (31.0-37.0); MEAN CORPUSCULAR VOLUME 85 fL (80-100); MONOCYTES # (AUTO) 0.4 K/uL (0.1-1.0); MONOCYTES % (AUTO) 5.8 % (2.0-9.0); NEUTROPHILS # (AUTO) 5.2 K/uL (1.8-7.7); NEUTROPHILS % (AUTO) 76.7 % (40.0-70.0); PLATELET COUNT (AUTO) 177 K/uL (150-450); RED BLOOD CELL COUNT(AUTO) 5.12 MIL/uL (4.50-5.90); RED CELL DISTRIBUTION WIDTH 13.4 % (11.5-14.5)
[2018-05-11 20:05] LABS: ANION GAP 12 mmol/L (8-16); CALCIUM, TOTAL 9.3 mg/dL (8.8-10.5); CARBON DIOXIDE 27 mmol/L (22-29); CHLORIDE 94 mmol/L (98-107); CREATININE 1.08 mg/dL (0.60-1.30); GLOMERULAR FILTR. RATE CALC > 60 mL/min (>60); GLUCOSE,RANDOM 310 mg/dL (70-110); POTASSIUM 4.9 mmol/L (3.5-5.1); SODIUM SERUM 133 mmol/L (136-145); UREA NITROGEN, BLOOD 11 mg/dL (7-18)
[2018-05-11 20:10] LABS: ALANINE AMINOTRANSFERASE 69 U/L (12-78); ALBUMIN 4.7 g/dL (3.4-5.0); ALKALINE PHOSPHATASE 103 U/L (46-116); ASPARTATE AMINOTRANSFERASE 32 U/L (15-37); BILIRUBIN,TOTAL 0.3 mg/dL (0.1-1.0); LIPASE 207 U/L (73-393); TOTAL PROTEIN, SERUM 8.5 g/dL (6.4-8.2)
[2018-05-11] MEDS ORDERED: SODIUM CHLORIDE 0.9% 1,000 ML IV ONE (21:15)
[2018-05-11] MEDS ORDERED: PB/HYOSCY/ATR/SCOP/LIDO/MAALOX 55 ML BOTTLE PO ONE (22:00)
[2018-05-11] MEDS ORDERED: ONDANSETRON HCL 4 MG/2 ML VIAL IVP ONE (22:00)
[2018-05-11] MEDS ORDERED: KETOROLAC TROMETHAMINE 30 MG/ML VIAL IVP ONE (22:00)
[2018-05-11 22:16] LABS: AMPHET/METH SCREEN,URINE NEGATIVE (NEGATIVE); BARBITURATE SCREEN, URINE NEGATIVE (NEGATIVE); BENZODIAZEPINES SCREEN,URINE NEGATIVE (NEGATIVE); CANNABINOID SCREEN,URINE NEGATIVE (NEGATIVE); COCAINE SCREEN,URINE NEGATIVE (NEGATIVE); METHADONE SCREEN, URINE NEGATIVE (NEGATIVE); OPIATE SCREEN,URINE NEGATIVE (NEGATIVE)
[2018-05-11 22:18] LABS: PHENCYCLIDINE SCREEN,URINE NEGATIVE (NEGATIVE)
[2018-05-11 22:55] LABS: APPEARANCE,URINE CLEAR (CLEAR); BILIRUBIN,URINE NEGATIVE (NEGATIVE); GLUCOSE, URINE (UA) >=1000 mg/dL (NEGATIVE); KETONES,URINE NEGATIVE (NEGATIVE); LEUKOCYTE ESTERASE ,URINE NEGATIVE (NEGATIVE); NITRATE,URINE NEGATIVE (NEGATIVE); OCCULT BLOOD,URINE NEGATIVE (NEGATIVE); PH,URINE 7.5 (5.0-8.0); PROTEIN,URINE NEGATIVE (NEGATIVE); UROBILINOGEN,URINE 0.2 mg/dL (<=1.0)
[2018-05-11 23:05] LABS: BACTERIA,URINE None Seen /HPF (None Seen); RBC,URINE None Seen /HPF (0-2); SQUAMOUS EPITHELIAL CELL,UR None Seen /LPF (None Seen); WBC,URINE None Seen /HPF (0-5)
[2018-05-11 23:19] LABS: GLUCOSE,POINT OF CARE 229 MG/DL (70-110)
[2018-05-12 00:45] VITALS: BP 104/67
== END 2018-05-12 01:07 | disposition home or self-care (01) ==
LOC: EMS 18:57
DX: E11.43 Type 2 diabetes mellitus with diabetic autonomic (poly)neuropathy (principal); K31.84 Gastroparesis; G89.29 Other chronic pain; R10.84 Generalized abdominal pain; F17.210 Nicotine dependence, cigarettes, uncomplicated; I10 Essential (primary) hypertension; Z79.899 Other long term (current) drug therapy
CPT/HCPCS: 36415; 80053; 80307; 81001; 82962; 83690; 85025; 99284; J1885; J2405; J7030; Z7610

== ENCOUNTER 2018-05-25 01:21 | Inpatient (IN) | payer OTHER ==
[~2018-05-25] VITALS: Ht 170.2 cm; Wt 82.1 kg
[2018-05-25] MEDS ORDERED: SILD25 PO (01:33)
[2018-05-25] MEDS ORDERED: SODIUM CHLORIDE 0.9% 1,000 ML IV ONE ×4 (02:15→05:30)
[2018-05-25 02:16] LABS: BASOPHILS % (AUTO) 0.4 % (0.0-2.0); EOSINOPHILS % (AUTO) 0.5 % (1.0-6.0); HEMATOCRIT 41.3 % (41-53); HEMOGLOBIN 14.1 g/dL (13.5-17.5); LYMPHOCYTES # (AUTO) 0.7 K/uL (1.0-4.8); MEAN CORPUSCULAR HGB CONC 34.2 G/dL (31.0-37.0); MEAN CORPUSCULAR VOLUME 88 fL (80-100); MONOCYTES # (AUTO) 0.6 K/uL (0.1-1.0); MONOCYTES % (AUTO) 6.1 % (2.0-9.0); NEUTROPHILS # (AUTO) 8.1 K/uL (1.8-7.7); PLATELET COUNT (AUTO) 168 K/uL (150-450); RED BLOOD CELL COUNT(AUTO) 4.71 MIL/uL (4.50-5.90); RED CELL DISTRIBUTION WIDTH 13.6 % (11.5-14.5)
[2018-05-25 02:35] LABS: ALANINE AMINOTRANSFERASE 23 U/L (12-78); ALBUMIN 4.5 g/dL (3.4-5.0); ALKALINE PHOSPHATASE 83 U/L (46-116); ANION GAP 14 mmol/L (8-16); ASPARTATE AMINOTRANSFERASE 15 U/L (15-37); BILIRUBIN,TOTAL 0.8 mg/dL (0.1-1.0); CALCIUM, TOTAL 10.1 mg/dL (8.8-10.5); CARBON DIOXIDE 23 mmol/L (22-29); CHLORIDE 91 mmol/L (98-107); CREATININE 3.51 mg/dL (0.60-1.30); GLOMERULAR FILTR. RATE CALC 18 mL/min (>60); LIPASE 242 U/L (73-393); POTASSIUM 4.2 mmol/L (3.5-5.1); SODIUM SERUM 128 mmol/L (136-145); TOTAL PROTEIN, SERUM 7.8 g/dL (6.4-8.2); UREA NITROGEN, BLOOD 36 mg/dL (7-18)
[2018-05-25 02:36] LABS: GLUCOSE,RANDOM 632 mg/dL (70-110)
[2018-05-25 03:59] LABS: GLUCOSE,POINT OF CARE 543 MG/DL (70-110)
[2018-05-25] MEDS ORDERED: 0.9% SODIUM CHLORIDE 10 ML SYRINGE IVP PRN ×2 (04:00→09:15)
[2018-05-25] MEDS ORDERED: ACETAMINOPHEN 325 MG TABLET PO PRN ×2 (04:00→09:15)
[2018-05-25] MEDS ORDERED: MORPHINE SULFATE 4 MG/ML SYRINGE IVP PRN (04:00)
[2018-05-25] MEDS ORDERED: ONDANSETRON HCL 4 MG/2 ML VIAL IVP PRN ×2 (04:00→09:15)
[2018-05-25] MEDS ORDERED: INSULIN REGULAR, HUMAN 100 UNITS/ML IVP ONE (04:15)
[2018-05-25 04:59] LABS: GLUCOSE,POINT OF CARE 308 MG/DL (70-110)
[2018-05-25 05:09] LABS: CALCIUM, TOTAL 8.7 mg/dL (8.8-10.5); CREATININE 3.09 mg/dL (0.60-1.30); POTASSIUM 4.3 mmol/L (3.5-5.1)
[2018-05-25] MEDS ORDERED: MORPHINE SULFATE 4 MG/ML SYRINGE IVP ONE (05:30)
[2018-05-25 07:23] LABS: GLUCOSE,POINT OF CARE 251 MG/DL (70-110)
[2018-05-25 08:36] LABS: AMPHET/METH SCREEN,URINE NEGATIVE (NEGATIVE); BARBITURATE SCREEN, URINE NEGATIVE (NEGATIVE); BENZODIAZEPINES SCREEN,URINE NEGATIVE (NEGATIVE); CANNABINOID SCREEN,URINE NEGATIVE (NEGATIVE); COCAINE SCREEN,URINE NEGATIVE (NEGATIVE); METHADONE SCREEN, URINE NEGATIVE (NEGATIVE); OPIATE SCREEN,URINE POSITIVE (NEGATIVE)
[2018-05-25 08:37] LABS: PHENCYCLIDINE SCREEN,URINE NEGATIVE (NEGATIVE)
[2018-05-25 08:38] VITALS: BP 116/60
[2018-05-25] MEDS ORDERED: GLUCAGON,HUMAN RECOMBINANT 1 MG VIAL IM PRN (09:15)
[2018-05-25] MEDS ORDERED: INSULIN LISPRO 100 UNITS/ML SQ PRN (09:15)
[2018-05-25] MEDS: DOCUSATE SODIUM 100 MG CAPSULE PO SCH ×2 (09:15→21:00)
[2018-05-25] MEDS ORDERED: LISINOPRIL 5 MG TABLET PO SCH (09:15)
[2018-05-25] MEDS ORDERED: DEXTROSE 50%-WATER 25 GM/50 ML SYG IVP PRN (09:30)
[2018-05-25] MEDS: OxyCODONE HCL/ACETAMINOPHEN 5-325 MG TABLET PO PRN (10:27)
[2018-05-25] MEDS: PANTOPRAZOLE SODIUM 40 MG/VIAL IVP SCH (10:27)
[2018-05-25] MEDS: HEPARIN SODIUM,PORCINE 5,000 UNITS/ML VIAL SQ SCH ×3 (10:27→23:34)
[2018-05-25] MEDS: OMEPRAZOLE 20 MG CAPSULE PO SCH ×2 (10:27→21:03)
[2018-05-25 11:30] VITALS: BP 121/68
[2018-05-25 11:44] LABS: GLUCOMETER DEV NAME(LOC) 5S 1M; GLUCOSE,POINT OF CARE 244 MG/DL (70-110)
[2018-05-25] MEDS: INSULIN LISPRO 100 UNITS/ML SQ PRN ×3 (11:58→21:08)
[2018-05-25] MEDS: SODIUM CHLORIDE 0.9% 1,000 ML IV SCH ×2 (14:02→23:35)
[2018-05-25] MEDS: MORPHINE SULFATE 2 MG/ML SYRINGE IVP PRN ×3 (14:03→19:14)
[2018-05-25 15:26] VITALS: BP 121/69
[2018-05-25] MEDS ORDERED: GABAPENTIN 300 MG CAPSULE PO SCH (16:00)
[2018-05-25] MEDS: GABAPENTIN 100 MG CAPSULE PO SCH (16:32)
[2018-05-25] MEDS ORDERED: MetFORMIN HCL 500 MG TABLET PO SCH (18:00)
[2018-05-25 19:20] VITALS: BP 123/68
[2018-05-25] MEDS: HYDROmorphone 2 MG/ML SYRINGE IVP PRN (21:03)
[2018-05-25] MEDS: ZOLPIDEM TARTRATE 5 MG TABLET PO PRN (21:03)
[2018-05-25 21:20] LABS: APPEARANCE,URINE CLEAR (CLEAR); BILIRUBIN,URINE NEGATIVE (NEGATIVE); GLUCOSE, URINE (UA) >=1000 mg/dL (NEGATIVE); KETONES,URINE NEGATIVE (NEGATIVE); LEUKOCYTE ESTERASE ,URINE NEGATIVE (NEGATIVE); NITRATE,URINE NEGATIVE (NEGATIVE); OCCULT BLOOD,URINE NEGATIVE (NEGATIVE); PROTEIN,URINE NEGATIVE (NEGATIVE); UROBILINOGEN,URINE 0.2 mg/dL (<=1.0)
[2018-05-25 21:32] LABS: CREATININE,URINE RANDOM 93.7 mg/dL (30.0-125.0)
[2018-05-25 21:49] LABS: BACTERIA,URINE None Seen /HPF (None Seen); RBC,URINE None Seen /HPF (0-2); SQUAMOUS EPITHELIAL CELL,UR Rare /LPF (None Seen); WBC,URINE 0-2 /HPF (0-5)
[2018-05-25 23:50] VITALS: BP 129/80
[2018-05-26] MEDS: HYDROmorphone 2 MG/ML SYRINGE IVP PRN ×6 (01:42→22:51)
[2018-05-26 03:52] VITALS: BP 128/77
[2018-05-26] MEDS: INSULIN LISPRO 100 UNITS/ML SQ PRN ×4 (05:52→20:51)
[2018-05-26 07:04] LABS: GLUCOMETER DEV NAME(LOC) 5S 1M; GLUCOSE,POINT OF CARE 183 MG/DL (70-110)
[2018-05-26] MEDS: OxyCODONE HCL/ACETAMINOPHEN 5-325 MG TABLET PO PRN ×4 (07:38→20:48)
[2018-05-26 07:43] LABS: ANION GAP 9 mmol/L (8-16); CALCIUM, TOTAL 8.2 mg/dL (8.8-10.5); CARBON DIOXIDE 24 mmol/L (22-29); CHLORIDE 100 mmol/L (98-107); GLOMERULAR FILTR. RATE CALC > 60 mL/min (>60); GLUCOSE,RANDOM 204 mg/dL (70-110); POTASSIUM 4.1 mmol/L (3.5-5.1); SODIUM SERUM 133 mmol/L (136-145); UREA NITROGEN, BLOOD 15 mg/dL (7-18)
[2018-05-26 07:55] VITALS: BP 126/86
[2018-05-26 08:30] LABS: BASOPHILS % (AUTO) 0.4 % (0.0-2.0); EOSINOPHILS % (AUTO) 3.2 % (1.0-6.0); HEMATOCRIT 38.3 % (41-53); HEMOGLOBIN 13.4 g/dL (13.5-17.5); LYMPHOCYTES # (AUTO) 1.4 K/uL (1.0-4.8); LYMPHOCYTES % (AUTO) 19.7 % (22.0-44.0); MEAN CORPUSCULAR HEMOGLOBIN 30.1 pg (26.0-34.0); MEAN CORPUSCULAR HGB CONC 34.9 G/dL (31.0-37.0); MEAN CORPUSCULAR VOLUME 86 fL (80-100); MONOCYTES # (AUTO) 0.5 K/uL (0.1-1.0); MONOCYTES % (AUTO) 6.6 % (2.0-9.0); NEUTROPHILS # (AUTO) 5.1 K/uL (1.8-7.7); NEUTROPHILS % (AUTO) 70.1 % (40.0-70.0); RED BLOOD CELL COUNT(AUTO) 4.44 MIL/uL (4.50-5.90); RED CELL DISTRIBUTION WIDTH 13.6 % (11.5-14.5)
[2018-05-26 08:33] LABS: PLATELET COUNT (AUTO) 104 K/uL (150-450)
[2018-05-26] MEDS: PANTOPRAZOLE SODIUM 40 MG/VIAL IVP SCH (08:44)
[2018-05-26] MEDS: GABAPENTIN 100 MG CAPSULE PO SCH (08:45)
[2018-05-26] MEDS: HEPARIN SODIUM,PORCINE 5,000 UNITS/ML VIAL SQ SCH ×3 (08:45→23:00)
[2018-05-26] MEDS: SODIUM CHLORIDE 0.9% 1,000 ML IV SCH (08:45)
[2018-05-26] MEDS: DOCUSATE SODIUM 100 MG CAPSULE PO SCH ×2 (08:51→20:54)
[2018-05-26] MEDS: POTASSIUM PHOS/SODIUM PHOS MIXTURE 1 POWDER PACKET PO SCH ×2 (10:18→20:47)
[2018-05-26 11:15] VITALS: BP 130/84
[2018-05-26 16:18] VITALS: BP 159/84
[2018-05-26 19:40] VITALS: BP 130/69
[2018-05-26] MEDS: ZOLPIDEM TARTRATE 5 MG TABLET PO PRN (22:55)
[2018-05-26 23:43] VITALS: BP 130/72
[2018-05-27] MEDS: HYDROmorphone 2 MG/ML SYRINGE IVP PRN ×5 (03:30→20:00)
[2018-05-27 04:35] VITALS: BP 135/55
[2018-05-27] MEDS: INSULIN LISPRO 100 UNITS/ML SQ PRN ×4 (06:07→20:50)
[2018-05-27] MEDS: OxyCODONE HCL/ACETAMINOPHEN 5-325 MG TABLET PO PRN ×2 (06:08→17:47)
[2018-05-27 06:29] LABS: ANION GAP 5 mmol/L (8-16); CALCIUM, TOTAL 8.4 mg/dL (8.8-10.5); CARBON DIOXIDE 28 mmol/L (22-29); CHLORIDE 100 mmol/L (98-107); CREATININE 0.66 mg/dL (0.60-1.30); GLOMERULAR FILTR. RATE CALC > 60 mL/min (>60); GLUCOSE,RANDOM 184 mg/dL (70-110); PHOSPHORUS 2.4 mg/dL (2.5-4.9); POTASSIUM 4.1 mmol/L (3.5-5.1); SODIUM SERUM 133 mmol/L (136-145); UREA NITROGEN, BLOOD 11 mg/dL (7-18)
[2018-05-27 07:33] VITALS: BP 129/87
[2018-05-27 08:14] LABS: GLUCOMETER DEV NAME(LOC) 5S 2Q; GLUCOSE,POINT OF CARE 236 MG/DL (70-110)
[2018-05-27 08:14] LABS: GLUCOMETER DEV NAME(LOC) 5S 2Q; GLUCOSE,POINT OF CARE 255 MG/DL (70-110)
[2018-05-27 08:14] LABS: GLUCOMETER DEV NAME(LOC) 5S 2Q; GLUCOSE,POINT OF CARE 253 MG/DL (70-110)
[2018-05-27 08:14] LABS: GLUCOMETER DEV NAME(LOC) 5S 2Q; GLUCOSE,POINT OF CARE 183 MG/DL (70-110)
[2018-05-27 08:14] LABS: GLUCOMETER DEV NAME(LOC) 5S 2Q; GLUCOSE,POINT OF CARE 174 MG/DL (70-110)
[2018-05-27] MEDS: PANTOPRAZOLE SODIUM 40 MG/VIAL IVP SCH (08:17)
[2018-05-27] MEDS: HEPARIN SODIUM,PORCINE 5,000 UNITS/ML VIAL SQ SCH ×2 (08:17→17:48)
[2018-05-27] MEDS: GABAPENTIN 100 MG CAPSULE PO SCH ×2 (08:17→08:31)
[2018-05-27] MEDS: DOCUSATE SODIUM 100 MG CAPSULE PO SCH ×2 (08:17→20:02)
[2018-05-27 11:23] VITALS: BP 119/74
[2018-05-27] MEDS: POTASSIUM PHOS/SODIUM PHOS MIXTURE 1 POWDER PACKET PO SCH ×2 (11:47→20:01)
[2018-05-27 15:20] VITALS: BP 110/78
[2018-05-27] MEDS: ZOLPIDEM TARTRATE 5 MG TABLET PO PRN (20:01)
[2018-05-27 20:23] VITALS: BP 112/74
[2018-05-27 23:54] VITALS: BP 114/70
[2018-05-28] MEDS: HEPARIN SODIUM,PORCINE 5,000 UNITS/ML VIAL SQ SCH ×3 (00:06→16:49)
[2018-05-28] MEDS: HYDROmorphone 2 MG/ML SYRINGE IVP PRN ×6 (00:06→20:50)
[2018-05-28 00:39] LABS: GLUCOMETER DEV NAME(LOC) 5S 1M; GLUCOSE,POINT OF CARE 158 MG/DL (70-110)
[2018-05-28 00:39] LABS: GLUCOMETER DEV NAME(LOC) 5S 1M; GLUCOSE,POINT OF CARE 218 MG/DL (70-110)
[2018-05-28 00:39] LABS: GLUCOMETER DEV NAME(LOC) 5S 1M; GLUCOSE,POINT OF CARE 180 MG/DL (70-110)
[2018-05-28 00:39] LABS: GLUCOMETER DEV NAME(LOC) 5S 1M; GLUCOSE,POINT OF CARE 199 MG/DL (70-110)
[2018-05-28 04:22] VITALS: BP 120/83
[2018-05-28] MEDS: INSULIN LISPRO 100 UNITS/ML SQ PRN ×4 (05:52→21:01)
[2018-05-28] MEDS: OxyCODONE HCL/ACETAMINOPHEN 5-325 MG TABLET PO PRN (06:35)
[2018-05-28 07:45] VITALS: BP 126/79
[2018-05-28 07:51] LABS: ANION GAP 7 mmol/L (8-16); CALCIUM, TOTAL 8.5 mg/dL (8.8-10.5); CARBON DIOXIDE 27 mmol/L (22-29); CHLORIDE 100 mmol/L (98-107); GLOMERULAR FILTR. RATE CALC > 60 mL/min (>60); GLUCOSE,RANDOM 277 mg/dL (70-110); PHOSPHORUS 3.1 mg/dL (2.5-4.9); POTASSIUM 3.9 mmol/L (3.5-5.1); SODIUM SERUM 134 mmol/L (136-145); UREA NITROGEN, BLOOD 16 mg/dL (7-18)
[2018-05-28] MEDS: PANTOPRAZOLE SODIUM 40 MG/VIAL IVP SCH (08:19)
[2018-05-28] MEDS: GABAPENTIN 100 MG CAPSULE PO SCH (08:20)
[2018-05-28] MEDS: DOCUSATE SODIUM 100 MG CAPSULE PO SCH ×2 (09:00→21:00)
[2018-05-28 11:20] VITALS: BP 121/74
[2018-05-28 15:35] VITALS: BP 121/84
[2018-05-28 20:17] VITALS: BP 119/69
[2018-05-28] MEDS: ZOLPIDEM TARTRATE 5 MG TABLET PO PRN (20:50)
[2018-05-29] VITALS (7 sets, daily range): BP systolic 105–142; BP diastolic 69–89
[2018-05-29] MEDS: HEPARIN SODIUM,PORCINE 5,000 UNITS/ML VIAL SQ SCH ×4 (00:03→23:44)
[2018-05-29] MEDS: HYDROmorphone 2 MG/ML SYRINGE IVP PRN ×7 (00:03→23:43)
[2018-05-29] MEDS: OxyCODONE HCL/ACETAMINOPHEN 5-325 MG TABLET PO PRN ×2 (05:28→18:50)
[2018-05-29] MEDS: INSULIN LISPRO 100 UNITS/ML SQ PRN ×3 (06:17→21:00)
[2018-05-29] MEDS: PANTOPRAZOLE SODIUM 40 MG/VIAL IVP SCH (08:04)
[2018-05-29] MEDS: GABAPENTIN 100 MG CAPSULE PO SCH (08:05)
[2018-05-29] MEDS ORDERED: SODIUM CHLORIDE 0.9% 1,000 ML IV ONE (12:45)
[2018-05-29 14:55] LABS: GLUCOMETER DEV NAME(LOC) 5S 2Q; GLUCOSE,POINT OF CARE 272 MG/DL (70-110)
[2018-05-29 14:55] LABS: GLUCOMETER DEV NAME(LOC) 5S 2Q; GLUCOSE,POINT OF CARE 186 MG/DL (70-110)
[2018-05-29] MEDS ORDERED: SODIUM CHLORIDE 0.9% 100 ML ONE (16:32)
[2018-05-29] MEDS ORDERED: IOVERSOL 350 MG/ML 100 ML VIAL ONE (16:32)
[2018-05-29] MEDS: DOCUSATE SODIUM 100 MG CAPSULE PO SCH ×2 (16:38→20:41)
[2018-05-29] MEDS: SODIUM CHLORIDE 0.9% 1,000 ML IV SCH (18:52)
[2018-05-29] MEDS: ZOLPIDEM TARTRATE 5 MG TABLET PO PRN (20:41)
[2018-05-30] MEDS: OxyCODONE HCL/ACETAMINOPHEN 5-325 MG TABLET PO PRN ×3 (01:03→10:48)
[2018-05-30 03:19] VITALS: BP 110/63
[2018-05-30] MEDS: HYDROmorphone 2 MG/ML SYRINGE IVP PRN ×4 (03:44→16:22)
[2018-05-30] MEDS: INSULIN LISPRO 100 UNITS/ML SQ PRN ×3 (06:04→18:02)
[2018-05-30 07:16] VITALS: BP 116/73
[2018-05-30] MEDS: HEPARIN SODIUM,PORCINE 5,000 UNITS/ML VIAL SQ SCH ×2 (08:04→15:47)
[2018-05-30] MEDS: SODIUM CHLORIDE 0.9% 1,000 ML IV SCH (08:04)
[2018-05-30] MEDS: DOCUSATE SODIUM 100 MG CAPSULE PO SCH (08:05)
[2018-05-30] MEDS: GABAPENTIN 100 MG CAPSULE PO SCH (08:05)
[2018-05-30] MEDS: PANTOPRAZOLE SODIUM 40 MG/VIAL IVP SCH (08:06)
[2018-05-30 10:12] LABS: ANION GAP 10 mmol/L (8-16); CALCIUM, TOTAL 9.3 mg/dL (8.8-10.5); CARBON DIOXIDE 28 mmol/L (22-29); CHLORIDE 99 mmol/L (98-107); CREATININE 0.76 mg/dL (0.60-1.30); GLOMERULAR FILTR. RATE CALC > 60 mL/min (>60); GLUCOSE,RANDOM 216 mg/dL (70-110); PHOSPHORUS 3.5 mg/dL (2.5-4.9); POTASSIUM 3.7 mmol/L (3.5-5.1); SODIUM SERUM 137 mmol/L (136-145); UREA NITROGEN, BLOOD 16 mg/dL (7-18)
[2018-05-30 11:34] VITALS: BP 144/88
[2018-05-30 20:49] LABS: GLUCOMETER DEV NAME(LOC) 5S 1M; GLUCOSE,POINT OF CARE 235 MG/DL (70-110)
[2018-05-30 20:49] LABS: GLUCOMETER DEV NAME(LOC) 5S 1M; GLUCOSE,POINT OF CARE 218 MG/DL (70-110)
[2018-05-30 20:49] LABS: GLUCOMETER DEV NAME(LOC) 5S 1M; GLUCOSE,POINT OF CARE 154 MG/DL (70-110)
[2018-05-30 20:49] LABS: GLUCOMETER DEV NAME(LOC) 5S 1M; GLUCOSE,POINT OF CARE 185 MG/DL (70-110)
[2018-05-30 20:49] LABS: GLUCOMETER DEV NAME(LOC) 5S 1M; GLUCOSE,POINT OF CARE 212 MG/DL (70-110)
[2018-05-30 20:49] LABS: GLUCOMETER DEV NAME(LOC) 5S 1M; GLUCOSE,POINT OF CARE 221 MG/DL (70-110)
[2018-05-31 07:59] LABS: GLUCOMETER DEV NAME(LOC) 5S 2Q; GLUCOSE,POINT OF CARE 223 MG/DL (70-110)
[2018-05-31 07:59] LABS: GLUCOMETER DEV NAME(LOC) 5S 2Q; GLUCOSE,POINT OF CARE 245 MG/DL (70-110)
[2018-05-31 07:59] LABS: GLUCOMETER DEV NAME(LOC) 5S 2Q; GLUCOSE,POINT OF CARE 206 MG/DL (70-110)
== END 2018-05-30 18:15 | DRG 342 ==
LOC: EMS 01:22 → 5S 07:34
PROVIDERS: ADMIT Internal Medicine; ATTEND Internal Medicine
PROC: 0QS8XZZ Reposition Right Femoral Shaft, External Approach (ICD-10-PCS; principal; 2018-05-26)
DX: S82.401A Unspecified fracture of shaft of right fibula, initial encounter for closed fracture (principal); N17.9 Acute kidney failure, unspecified; I95.9 Hypotension, unspecified; K85.90 Acute pancreatitis without necrosis or infection, unspecified; E11.65 Type 2 diabetes mellitus with hyperglycemia; M48.56XA Collapsed vertebra, not elsewhere classified, lumbar region, initial encounter for fracture; G95.9 Disease of spinal cord, unspecified; K75.9 Inflammatory liver disease, unspecified; W18.30XA Fall on same level, unspecified, initial encounter; E78.5 Hyperlipidemia, unspecified; G47.33 Obstructive sleep apnea (adult) (pediatric); E83.39 Other disorders of phosphorus metabolism; M85.80 Other specified disorders of bone density and structure, unspecified site; R55 Syncope and collapse; I10 Essential (primary) hypertension; K21.9 Gastro-esophageal reflux disease without esophagitis; Z90.49 Acquired absence of other specified parts of digestive tract; F17.210 Nicotine dependence, cigarettes, uncomplicated; Z79.899 Other long term (current) drug therapy; Y93.89 Activity, other specified; Y92.89 Other specified places as the place of occurrence of the external cause; Y99.8 Other external cause status; Z83.3 Family history of diabetes mellitus; Z82.49 Family history of ischemic heart disease and other diseases of the circulatory system; Z79.84 Long term (current) use of oral hypoglycemic drugs; E66.9 Obesity, unspecified; Z68.28 Body mass index [BMI] 28.0-28.9, adult
CPT/HCPCS: 29505; 70450; 74177; 76770; 82570; 82948; 83036; 83735; 84100; 84300; 84540; 93005; 93306; 93880; 96361; 96374; 96375; 97116; 97162; 97530; 99285; C9113; G0480; J1170; J1644; J1815; J2270; J7030; J7050

== ENCOUNTER 2018-06-26 14:18 | Emergency (ER) | payer OTHER ==
[~2018-06-26] VITALS: Ht 165.1 cm; Wt 77.0 kg
[~2018-06-26 14:18] MED LIST changes: +METF-960 PO; -METF500T6 PO; +SILD25 PO
[2018-06-26 14:39] LABS: GLUCOSE,POINT OF CARE 240 MG/DL (70-110)
[2018-06-26 14:57] LABS: BASOPHILS % (AUTO) 0.4 % (0.0-2.0); EOSINOPHILS % (AUTO) 2.5 % (1.0-6.0); HEMATOCRIT 41.9 % (41-53); HEMOGLOBIN 14.5 g/dL (13.5-17.5); LYMPHOCYTES # (AUTO) 1.1 K/uL (1.0-4.8); LYMPHOCYTES % (AUTO) 16.9 % (22.0-44.0); MEAN CORPUSCULAR HEMOGLOBIN 30.1 pg (26.0-34.0); MEAN CORPUSCULAR HGB CONC 34.6 G/dL (31.0-37.0); MEAN CORPUSCULAR VOLUME 87 fL (80-100); MONOCYTES # (AUTO) 0.4 K/uL (0.1-1.0); MONOCYTES % (AUTO) 5.9 % (2.0-9.0); NEUTROPHILS % (AUTO) 74.3 % (40.0-70.0); PLATELET COUNT (AUTO) 217 K/uL (150-450); RED BLOOD CELL COUNT(AUTO) 4.81 MIL/uL (4.50-5.90); RED CELL DISTRIBUTION WIDTH 13.7 % (11.5-14.5)
[2018-06-26] MEDS ORDERED: SODIUM CHLORIDE 0.9% 1,000 ML IV ONE (15:00)
[2018-06-26] MEDS ORDERED: ONDANSETRON HCL 4 MG/2 ML VIAL IVP ONE (15:00)
[2018-06-26] MEDS ORDERED: MORPHINE SULFATE 4 MG/ML SYRINGE IVP ONE (15:00)
[2018-06-26 15:04] LABS: GLUCOSE,POINT OF CARE 230 MG/DL (70-110)
[2018-06-26 15:18] LABS: AMPHET/METH SCREEN,URINE NEGATIVE (NEGATIVE); BARBITURATE SCREEN, URINE NEGATIVE (NEGATIVE); BENZODIAZEPINES SCREEN,URINE NEGATIVE (NEGATIVE); CANNABINOID SCREEN,URINE NEGATIVE (NEGATIVE); COCAINE SCREEN,URINE NEGATIVE (NEGATIVE); METHADONE SCREEN, URINE NEGATIVE (NEGATIVE); OPIATE SCREEN,URINE POSITIVE (NEGATIVE)
[2018-06-26 15:19] LABS: PHENCYCLIDINE SCREEN,URINE NEGATIVE (NEGATIVE)
[2018-06-26 15:21] LABS: ANION GAP 11 mmol/L (8-16); CALCIUM, TOTAL 9.2 mg/dL (8.8-10.5); CARBON DIOXIDE 25 mmol/L (22-29); CHLORIDE 98 mmol/L (98-107); GLOMERULAR FILTR. RATE CALC > 60 mL/min (>60); GLUCOSE,RANDOM 233 mg/dL (70-110); POTASSIUM 4.2 mmol/L (3.5-5.1); SODIUM SERUM 134 mmol/L (136-145); UREA NITROGEN, BLOOD 16 mg/dL (7-18)
[2018-06-26 15:25] LABS: ALANINE AMINOTRANSFERASE 25 U/L (12-78); ALBUMIN 4.3 g/dL (3.4-5.0); ALKALINE PHOSPHATASE 91 U/L (46-116); ASPARTATE AMINOTRANSFERASE 15 U/L (15-37); BILIRUBIN,TOTAL 0.3 mg/dL (0.1-1.0); LIPASE 558 U/L (73-393); TOTAL PROTEIN, SERUM 8.1 g/dL (6.4-8.2)
[2018-06-26] MEDS ORDERED: KETOROLAC TROMETHAMINE 30 MG/ML VIAL IVP ONE (15:30)
[2018-06-26 15:38] LABS: B-TYPE NATRIURETIC PEPTIDE 10 pg/mL (0-100)
[2018-06-26] MEDS ORDERED: HYDROmorphone 2 MG/ML SYRINGE IVP ONE (16:15)
[2018-06-26 17:47] VITALS: BP 139/86
== END 2018-06-26 17:59 | disposition home or self-care (01) ==
LOC: EMS 14:19
DX: S92.321A Displaced fracture of second metatarsal bone, right foot, initial encounter for closed fracture (principal); S92.331A Displaced fracture of third metatarsal bone, right foot, initial encounter for closed fracture; S92.341A Displaced fracture of fourth metatarsal bone, right foot, initial encounter for closed fracture; S82.434A Nondisplaced oblique fracture of shaft of right fibula, initial encounter for closed fracture; R55 Syncope and collapse; E11.9 Type 2 diabetes mellitus without complications; K21.9 Gastro-esophageal reflux disease without esophagitis; I10 Essential (primary) hypertension; F17.210 Nicotine dependence, cigarettes, uncomplicated; Z98.890 Other specified postprocedural states; Z90.49 Acquired absence of other specified parts of digestive tract; Z79.84 Long term (current) use of oral hypoglycemic drugs; Z79.899 Other long term (current) drug therapy; W10.8XXA Fall (on) (from) other stairs and steps, initial encounter; Y93.01 Activity, walking, marching and hiking; Y92.098 Other place in other non-institutional residence as the place of occurrence of the external cause; Y99.8 Other external cause status
CPT/HCPCS: 29580; 36415; 73590; 73630; 80053; 80307; 82948; 82962; 83690; 83880; 84484; 85025; 93005; 96361; 96374; 96375; 99285; G0480; J1170; J1885; J2270; J2405; J7030

== ENCOUNTER 2018-07-12 20:46 | Emergency (ER) | payer OTHER ==
[~2018-07-12] VITALS: Ht 172.7 cm; Wt 86.4 kg
[~2018-07-12 20:46] MED LIST changes: -METF-960 PO
[2018-07-12 21:49] LABS: GLUCOSE,POINT OF CARE 196 MG/DL (70-110)
[2018-07-12] MEDS ORDERED: ACETAMINOPHEN 500 MG TABLET PO ONE (23:30)
[2018-07-12] MEDS ORDERED: PROPARACAINE HCL 0.5% 15 ML OPHTHALMIC SOLUTION OD ONE (23:30)
[2018-07-13 01:10] VITALS: BP 109/85
== END 2018-07-13 01:12 | disposition home or self-care (01) ==
LOC: EMS 20:48
DX: H10.211 Acute toxic conjunctivitis, right eye (principal); R20.8 Other disturbances of skin sensation; E11.9 Type 2 diabetes mellitus without complications; K21.9 Gastro-esophageal reflux disease without esophagitis; I10 Essential (primary) hypertension; F17.210 Nicotine dependence, cigarettes, uncomplicated; Z90.49 Acquired absence of other specified parts of digestive tract; Z79.899 Other long term (current) drug therapy
CPT/HCPCS: 99283

== ENCOUNTER 2018-10-09 01:18 | Inpatient (IN) | payer OTHER ==
[~2018-10-09] VITALS: Ht 165.1 cm; Wt 83.2 kg
[2018-10-09] MEDS ORDERED: QUET200T29 PO (01:38)
[2018-10-09] MEDS ORDERED: CYCL10TA7 PO (01:38)
[2018-10-09] MEDS ORDERED: MULT1TAB69 PO (01:38)
[2018-10-09] MEDS ORDERED: DOXA1 PO (01:38)
[2018-10-09] MEDS ORDERED: TAMS0.4C32 PO (01:38)
[2018-10-09] MEDS ORDERED: LISI40TA4 PO (01:38)
[2018-10-09] MEDS ORDERED: HYDR25TA PO (01:38)
[2018-10-09] MEDS ORDERED: DICL75TA5 PO (01:38)
[2018-10-09] MEDS ORDERED: INSU100V36 SQ (01:38)
[2018-10-09] MEDS ORDERED: MORPHINE SULFATE 2 MG/ML SYRINGE IVP ONE (02:00)
[2018-10-09] MEDS ORDERED: ONDANSETRON HCL 4 MG/2 ML VIAL IVP ONE (02:00)
[2018-10-09] MEDS ORDERED: SODIUM CHLORIDE 0.9% 1,000 ML IV ONE (02:00)
[2018-10-09 02:04] LABS: BASOPHILS % (AUTO) 0.6 % (0.0-2.0); HEMATOCRIT 37.8 % (41-53); HEMOGLOBIN 13.1 g/dL (13.5-17.5); LYMPHOCYTES # (AUTO) 1.6 K/uL (1.0-4.8); LYMPHOCYTES % (AUTO) 24.5 % (22.0-44.0); MEAN CORPUSCULAR HEMOGLOBIN 30.4 pg (26.0-34.0); MEAN CORPUSCULAR HGB CONC 34.5 G/dL (31.0-37.0); MEAN CORPUSCULAR VOLUME 88 fL (80-100); MONOCYTES # (AUTO) 0.6 K/uL (0.1-1.0); NEUTROPHILS % (AUTO) 59.9 % (40.0-70.0); PLATELET COUNT (AUTO) 187 K/uL (150-450); RED BLOOD CELL COUNT(AUTO) 4.29 MIL/uL (4.50-5.90); RED CELL DISTRIBUTION WIDTH 14.2 % (11.5-14.5)
[2018-10-09 02:15] LABS: INR 0.9 (0.9-1.1); PROTHROMBIN TIME 9.6 SEC (9.4-11.6)
[2018-10-09 02:20] LABS: ANION GAP 9 mmol/L (8-16); CALCIUM, TOTAL 8.2 mg/dL (8.8-10.5); CARBON DIOXIDE 26 mmol/L (22-29); CHLORIDE 95 mmol/L (98-107); CREATININE 1.25 mg/dL (0.60-1.30); GLOMERULAR FILTR. RATE CALC > 60 mL/min (>60); GLUCOSE,RANDOM 322 mg/dL (70-110); SODIUM SERUM 130 mmol/L (136-145); UREA NITROGEN, BLOOD 20 mg/dL (7-18)
[2018-10-09 02:25] LABS: B-TYPE NATRIURETIC PEPTIDE < 5 pg/mL (0-100)
[2018-10-09 02:28] LABS: LACTIC ACID 1.7 mmol/L (0.4-2.0)
[2018-10-09 02:36] LABS: ALANINE AMINOTRANSFERASE 19 U/L (12-78); ALBUMIN 3.3 g/dL (3.4-5.0); ALKALINE PHOSPHATASE 91 U/L (46-116); ASPARTATE AMINOTRANSFERASE 11 U/L (15-37); BILIRUBIN,TOTAL 0.3 mg/dL (0.1-1.0); CREATINE KINASE, TOTAL ONLY 157 U/L (39-308); LIPASE 192 U/L (73-393); TOTAL PROTEIN, SERUM 6.2 g/dL (6.4-8.2)
[2018-10-09] MEDS ORDERED: IOVERSOL 350 MG/ML 100 ML VIAL ONE (02:56)
[2018-10-09] MEDS ORDERED: SODIUM CHLORIDE 0.9% 100 ML ONE (02:57)
[2018-10-09] MEDS ORDERED: LORazepam 2 MG/ML VIAL IVP ONE (03:00)
[2018-10-09 04:14] LABS: APPEARANCE,URINE CLEAR (CLEAR); BILIRUBIN,URINE NEGATIVE (NEGATIVE); GLUCOSE, URINE (UA) 500 mg/dL (NEGATIVE); KETONES,URINE NEGATIVE (NEGATIVE); LEUKOCYTE ESTERASE ,URINE NEGATIVE (NEGATIVE); NITRATE,URINE NEGATIVE (NEGATIVE); OCCULT BLOOD,URINE NEGATIVE (NEGATIVE); PROTEIN,URINE NEGATIVE (NEGATIVE); UROBILINOGEN,URINE 0.2 mg/dL (<=1.0)
[2018-10-09 04:19] LABS: AMPHET/METH SCREEN,URINE NEGATIVE (NEGATIVE); BARBITURATE SCREEN, URINE NEGATIVE (NEGATIVE); BENZODIAZEPINES SCREEN,URINE NEGATIVE (NEGATIVE); CANNABINOID SCREEN,URINE NEGATIVE (NEGATIVE); COCAINE SCREEN,URINE NEGATIVE (NEGATIVE); METHADONE SCREEN, URINE NEGATIVE (NEGATIVE); OPIATE SCREEN,URINE POSITIVE (NEGATIVE); PHENCYCLIDINE SCREEN,URINE NEGATIVE (NEGATIVE)
[2018-10-09 04:25] LABS: BACTERIA,URINE None Seen /HPF (None Seen); RBC,URINE 0-2 /HPF (0-2); SQUAMOUS EPITHELIAL CELL,UR Rare /LPF (None Seen); WBC,URINE 0-2 /HPF (0-5)
[2018-10-09] MEDS ORDERED: ACETAMINOPHEN 325 MG TABLET PO PRN ×2 (04:30→08:00)
[2018-10-09] MEDS ORDERED: ONDANSETRON HCL 4 MG/2 ML VIAL IVP PRN ×2 (04:30→08:00)
[2018-10-09] MEDS ORDERED: 0.9% SODIUM CHLORIDE 10 ML SYRINGE IVP PRN ×2 (04:30→08:00)
[2018-10-09 05:29] VITALS: BP 109/72
[2018-10-09] MEDS ORDERED: PNEUMOCOCCAL VACCINE POLYVALENT 0.5 ML VIAL [PPSV23] IM ONE (07:00)
[2018-10-09 07:23] VITALS: BP 111/59
[2018-10-09] MEDS ORDERED: ZOLPIDEM TARTRATE 5 MG TABLET PO PRN (08:00)
[2018-10-09] MEDS ORDERED: DEXTROSE 50%-WATER 25 GM/50 ML SYRINGE IVP PRN (08:00)
[2018-10-09] MEDS: HYDROCHLOROTHIAZIDE 25 MG TABLET PO SCH (09:00)
[2018-10-09] MEDS: CYCLOBENZAPRINE HCL 10 MG TABLET PO SCH ×2 (09:56→15:18)
[2018-10-09] MEDS: TAMSULOSIN HCL 0.4 MG CAPSULE PO SCH (09:57)
[2018-10-09] MEDS: DOXAZOSIN MESYLATE 1 MG TABLET PO SCH (09:57)
[2018-10-09] MEDS: GABAPENTIN 300 MG CAPSULE PO SCH ×3 (09:57→20:22)
[2018-10-09] MEDS: PANTOPRAZOLE SODIUM 40 MG/VIAL IVP SCH (09:57)
[2018-10-09] MEDS: LISINOPRIL 20 MG TABLET PO SCH (09:57)
[2018-10-09] MEDS: ENOXAPARIN SODIUM 40 MG/0.4 ML PF SYRINGE SQ SCH (09:59)
[2018-10-09 11:15] VITALS: BP 106/64
[2018-10-09] MEDS: INSULIN LISPRO 100 UNITS/ML SQ PRN ×3 (12:01→21:29)
[2018-10-09 13:30] LABS: GLUCOMETER DEV NAME(LOC) 5S.1; GLUCOSE,POINT OF CARE 201 MG/DL (70-110)
[2018-10-09] MEDS ORDERED: KETOROLAC TROMETHAMINE 15 MG/ML VIAL IVP ONE (15:15)
[2018-10-09 15:16] VITALS: BP 110/55
[2018-10-09] MEDS ORDERED: NITROGLYCERIN 0.4 MG SUBLINGUAL TABLET #25 SL ONE (16:15)
[2018-10-09 16:19] VITALS: BP 120/63
[2018-10-09 19:37] VITALS: BP 116/71
[2018-10-09] MEDS ORDERED: QUEtiapine FUMARATE 200 MG TABLET PO SCH (21:00)
[2018-10-09 21:18] LABS: GLUCOMETER DEV NAME(LOC) 5S.1; GLUCOSE,POINT OF CARE 224 MG/DL (70-110)
[2018-10-09 21:19] LABS: GLUCOMETER DEV NAME(LOC) 5S.1; GLUCOSE,POINT OF CARE 231 MG/DL (70-110)
[2018-10-10] MEDS: CYCLOBENZAPRINE HCL 10 MG TABLET PO SCH ×2 (00:33→08:32)
[2018-10-10 00:34] VITALS: BP 126/63
[2018-10-10 04:50] VITALS: BP 121/72
[2018-10-10] MEDS: OxyCODONE HCL/ACETAMINOPHEN 5-325 MG TABLET PO PRN ×2 (04:56→10:01)
[2018-10-10] MEDS: INSULIN LISPRO 100 UNITS/ML SQ PRN ×2 (06:05→12:04)
[2018-10-10 06:10] LABS: BASOPHILS % (AUTO) 0.4 % (0.0-2.0); EOSINOPHILS % (AUTO) 6.8 % (1.0-6.0); HEMATOCRIT 39.4 % (41-53); HEMOGLOBIN 13.8 g/dL (13.5-17.5); LYMPHOCYTES # (AUTO) 1.1 K/uL (1.0-4.8); LYMPHOCYTES % (AUTO) 20.1 % (22.0-44.0); MEAN CORPUSCULAR HEMOGLOBIN 30.5 pg (26.0-34.0); MEAN CORPUSCULAR VOLUME 87 fL (80-100); MONOCYTES # (AUTO) 0.5 K/uL (0.1-1.0); MONOCYTES % (AUTO) 8.4 % (2.0-9.0); NEUTROPHILS # (AUTO) 3.5 K/uL (1.8-7.7); NEUTROPHILS % (AUTO) 64.3 % (40.0-70.0); PLATELET COUNT (AUTO) 197 K/uL (150-450); RED BLOOD CELL COUNT(AUTO) 4.52 MIL/uL (4.50-5.90); RED CELL DISTRIBUTION WIDTH 14.1 % (11.5-14.5)
[2018-10-10 06:27] LABS: ALANINE AMINOTRANSFERASE 22 U/L (12-78); ALBUMIN 3.4 g/dL (3.4-5.0); ALKALINE PHOSPHATASE 82 U/L (46-116); ANION GAP 6 mmol/L (8-16); ASPARTATE AMINOTRANSFERASE 13 U/L (15-37); BILIRUBIN,TOTAL 0.4 mg/dL (0.1-1.0); CALCIUM, TOTAL 8.3 mg/dL (8.8-10.5); CARBON DIOXIDE 29 mmol/L (22-29); CHLORIDE 97 mmol/L (98-107); CREATININE 0.78 mg/dL (0.60-1.30); GLOMERULAR FILTR. RATE CALC > 60 mL/min (>60); GLUCOSE,RANDOM 215 mg/dL (70-110); SODIUM SERUM 132 mmol/L (136-145); TOTAL PROTEIN, SERUM 6.6 g/dL (6.4-8.2); UREA NITROGEN, BLOOD 12 mg/dL (7-18)
[2018-10-10 07:18] VITALS: BP 124/78
[2018-10-10] MEDS: GABAPENTIN 300 MG CAPSULE PO SCH (08:32)
[2018-10-10] MEDS: DOXAZOSIN MESYLATE 1 MG TABLET PO SCH (08:33)
[2018-10-10] MEDS: ENOXAPARIN SODIUM 40 MG/0.4 ML PF SYRINGE SQ SCH (08:33)
[2018-10-10] MEDS: TAMSULOSIN HCL 0.4 MG CAPSULE PO SCH (08:33)
[2018-10-10] MEDS: PANTOPRAZOLE SODIUM 40 MG/VIAL IVP SCH (08:33)
[2018-10-10] MEDS: LISINOPRIL 20 MG TABLET PO SCH (08:33)
[2018-10-10] MEDS: HYDROCHLOROTHIAZIDE 25 MG TABLET PO SCH (09:00)
[2018-10-10 10:45] VITALS: BP 114/71
[2018-10-10 15:09] LABS: GLUCOMETER DEV NAME(LOC) 5S.2; GLUCOSE,POINT OF CARE 231 MG/DL (70-110)
[2018-10-10 21:39] LABS: GLUCOMETER DEV NAME(LOC) 5N.2; GLUCOSE,POINT OF CARE 239 MG/DL (70-110)
== END 2018-10-10 15:30 | disposition home or self-care (01) | DRG 198 ==
LOC: EMS 01:18 → 5S 04:58
PROVIDERS: ADMIT Internal Medicine; ATTEND Internal Medicine
DX: I20.8 Other forms of angina pectoris (principal); E11.65 Type 2 diabetes mellitus with hyperglycemia; F17.210 Nicotine dependence, cigarettes, uncomplicated; R16.0 Hepatomegaly, not elsewhere classified; I10 Essential (primary) hypertension; N40.0 Benign prostatic hyperplasia without lower urinary tract symptoms; F41.9 Anxiety disorder, unspecified; F99 Mental disorder, not otherwise specified; K21.9 Gastro-esophageal reflux disease without esophagitis; Z90.49 Acquired absence of other specified parts of digestive tract; Z83.3 Family history of diabetes mellitus; Z82.49 Family history of ischemic heart disease and other diseases of the circulatory system
CPT/HCPCS: 71260; 72193; 74160; 82948; 83605; 83735; 87040; 93005; 93306; 96361; 96374; 96375; 99291; C9113; G0378; G0480; J1650; J1885; J2060; J2270; J2405; J7030; J7050

== ENCOUNTER 2018-10-19 20:33 | Emergency (ER) | payer OTHER ==
[~2018-10-19] VITALS: Ht 165.1 cm; Wt 81.8 kg
[~2018-10-19 20:33] MED LIST changes: +CYCL10TA7 PO; +DICL75TA5 PO; +DOXA1 PO; -GLIP10TA9 PO; +HYDR25TA PO; +INSU100V36 SQ; -LISI-660 PO; +LISI40TA4 PO; +MULT1TAB69 PO; +QUET200T29 PO; -SILD25 PO; +TAMS0.4C32 PO
[2018-10-19 20:59] LABS: GLUCOSE,POINT OF CARE 227 MG/DL (70-110)
[2018-10-19] MEDS ORDERED: GLIP10TA9 PO (21:01)
[2018-10-19 21:32] LABS: BASOPHILS % (AUTO) 0.9 % (0.0-2.0); HEMATOCRIT 43.1 % (41-53); HEMOGLOBIN 15.3 g/dL (13.5-17.5); LYMPHOCYTES # (AUTO) 1.6 K/uL (1.0-4.8); LYMPHOCYTES % (AUTO) 18.5 % (22.0-44.0); MEAN CORPUSCULAR HEMOGLOBIN 31.3 pg (26.0-34.0); MEAN CORPUSCULAR HGB CONC 35.5 G/dL (31.0-37.0); MEAN CORPUSCULAR VOLUME 88 fL (80-100); MONOCYTES # (AUTO) 0.5 K/uL (0.1-1.0); MONOCYTES % (AUTO) 5.7 % (2.0-9.0); NEUTROPHILS # (AUTO) 6.2 K/uL (1.8-7.7); NEUTROPHILS % (AUTO) 72.9 % (40.0-70.0); PLATELET COUNT (AUTO) 202 K/uL (150-450); RED BLOOD CELL COUNT(AUTO) 4.89 MIL/uL (4.50-5.90)
[2018-10-19 21:41] LABS: APPEARANCE,URINE CLEAR (CLEAR); BILIRUBIN,URINE NEGATIVE (NEGATIVE); GLUCOSE, URINE (UA) NEGATIVE (NEGATIVE); KETONES,URINE TRACE mg/dL (NEGATIVE); LEUKOCYTE ESTERASE ,URINE NEGATIVE (NEGATIVE); NITRATE,URINE NEGATIVE (NEGATIVE); OCCULT BLOOD,URINE NEGATIVE (NEGATIVE); PROTEIN,URINE NEGATIVE (NEGATIVE); UROBILINOGEN,URINE 0.2 mg/dL (<=1.0)
[2018-10-19 21:47] LABS: CALCIUM, TOTAL 8.9 mg/dL (8.8-10.5); CREATININE 1.29 mg/dL (0.60-1.30); POTASSIUM 3.7 mmol/L (3.5-5.1)
[2018-10-19] MEDS ORDERED: KETOROLAC TROMETHAMINE 60 MG/2 ML VIAL IM ONE (22:30)
[2018-10-19] MEDS ORDERED: CARISOPRODOL 350 MG TABLET PO ONE (22:30)
[2018-10-19 23:34] LABS: GLUCOSE,POINT OF CARE 131 MG/DL (70-110)
[2018-10-19 23:41] VITALS: BP 124/86
== END 2018-10-19 23:44 | disposition home or self-care (01) ==
LOC: EMS 20:36
DX: M54.6 Pain in thoracic spine (principal); M54.2 Cervicalgia; G89.29 Other chronic pain; E11.9 Type 2 diabetes mellitus without complications; K21.9 Gastro-esophageal reflux disease without esophagitis; I10 Essential (primary) hypertension; F17.210 Nicotine dependence, cigarettes, uncomplicated; Z90.49 Acquired absence of other specified parts of digestive tract
CPT/HCPCS: 36415; 80048; 81003; 82962; 83605; 85025; 96372; 99283; J1885

== ENCOUNTER 2019-02-28 11:45 | Emergency (ER) | payer OTHER ==
[~2019-02-28] VITALS: Ht 165.1 cm; Wt 86.4 kg
[~2019-02-28 11:45] MED LIST changes: -CYCL10TA7 PO; -DICL75TA5 PO; -DOXA1 PO; +GLIP10TA9 PO; -INSU100V36 SQ; -LISI40TA4 PO; -OMEP20 PO; -QUET200T29 PO; -TAMS0.4C32 PO
[2019-02-28] MEDS ORDERED: KETOROLAC TROMETHAMINE 30 MG/ML VIAL IM ONE (13:15)
[2019-02-28 13:41] LABS: BASOPHILS % (AUTO) 0.7 % (0.0-2.0); EOSINOPHILS % (AUTO) 2.5 % (1.0-6.0); HEMATOCRIT 38.8 % (41-53); HEMOGLOBIN 13.4 g/dL (13.5-17.5); LYMPHOCYTES # (AUTO) 1.3 K/uL (1.0-4.8); LYMPHOCYTES % (AUTO) 20.5 % (22.0-44.0); MEAN CORPUSCULAR HEMOGLOBIN 30.1 pg (26.0-34.0); MEAN CORPUSCULAR HGB CONC 34.5 G/dL (31.0-37.0); MEAN CORPUSCULAR VOLUME 87 fL (80-100); MONOCYTES # (AUTO) 0.5 K/uL (0.1-1.0); NEUTROPHILS # (AUTO) 4.4 K/uL (1.8-7.7); NEUTROPHILS % (AUTO) 68.3 % (40.0-70.0); PLATELET COUNT (AUTO) 199 K/uL (150-450); RED BLOOD CELL COUNT(AUTO) 4.44 MIL/uL (4.50-5.90); RED CELL DISTRIBUTION WIDTH 13.9 % (11.5-14.5)
[2019-02-28 13:57] LABS: ANION GAP 8 mmol/L (8-16); CALCIUM, TOTAL 8.7 mg/dL (8.8-10.5); CARBON DIOXIDE 27 mmol/L (22-29); CHLORIDE 103 mmol/L (98-107); CREATININE 0.92 mg/dL (0.60-1.30); GLOMERULAR FILTR. RATE CALC > 60 mL/min (>60); GLUCOSE,RANDOM 222 mg/dL (70-110); POTASSIUM 4.1 mmol/L (3.5-5.1); SODIUM SERUM 138 mmol/L (136-145); UREA NITROGEN, BLOOD 14 mg/dL (7-18)
[2019-02-28 14:04] LABS: ALANINE AMINOTRANSFERASE 19 U/L (12-78); ALBUMIN 3.8 g/dL (3.4-5.0); ALKALINE PHOSPHATASE 79 U/L (46-116); ASPARTATE AMINOTRANSFERASE 13 U/L (15-37); BILIRUBIN,TOTAL 0.2 mg/dL (0.1-1.0); TOTAL PROTEIN, SERUM 6.9 g/dL (6.4-8.2)
[2019-02-28] MEDS ORDERED: HYDROCODONE/ACETAMINOPHEN 5-325 MG TABLET PO ONE (14:30)
[2019-02-28 15:19] VITALS: BP 124/85
== END 2019-02-28 15:21 | disposition home or self-care (01) ==
LOC: EMS 11:45
DX: M25.50 Pain in unspecified joint (principal); M79.10 Myalgia, unspecified site; E11.40 Type 2 diabetes mellitus with diabetic neuropathy, unspecified; I10 Essential (primary) hypertension; K21.9 Gastro-esophageal reflux disease without esophagitis; G47.30 Sleep apnea, unspecified; F17.210 Nicotine dependence, cigarettes, uncomplicated; Z90.49 Acquired absence of other specified parts of digestive tract; Z79.899 Other long term (current) drug therapy
CPT/HCPCS: 36415; 80053; 85025; 96372; 99283; J1885

== ENCOUNTER 2019-04-20 18:47 | Emergency (ER) | payer OTHER ==
[~2019-04-20] VITALS: Ht 172.7 cm; Wt 81.8 kg
[2019-04-20] MEDS ORDERED: SIMV-260 PO (20:15)
[2019-04-20] MEDS ORDERED: HYDR-4455 PO (20:15)
[2019-04-20 20:19] LABS: GLUCOSE,POINT OF CARE 197 MG/DL (70-110)
[2019-04-20] MEDS ORDERED: KETOROLAC TROMETHAMINE 60 MG/2 ML VIAL IM ONE (21:00)
[2019-04-20 22:40] VITALS: BP 131/73
== END 2019-04-20 22:43 | disposition home or self-care (01) ==
LOC: EMS 18:52
DX: M79.671 Pain in right foot (principal); E11.9 Type 2 diabetes mellitus without complications; I10 Essential (primary) hypertension; K21.9 Gastro-esophageal reflux disease without esophagitis; F17.210 Nicotine dependence, cigarettes, uncomplicated; Z90.49 Acquired absence of other specified parts of digestive tract
CPT/HCPCS: 73600; 73630; 82962; 96372; 99283; J1885

== ENCOUNTER 2019-08-27 15:01 | Inpatient (IN) | payer OTHER ==
[~2019-08-27] VITALS: Ht 165.1 cm; Wt 81.8 kg
[~2019-08-27 15:01] MED LIST changes: +HYDR-4455 PO; +SIMV-260 PO
[2019-08-27 15:21] LABS: GLUCOSE,POINT OF CARE 228 MG/DL (70-110)
[2019-08-27 17:42] LABS: RED BLOOD CELL COUNT(AUTO) 4.91 MIL/uL (4.50-5.90)
[2019-08-27 17:43] LABS: BASOPHILS % (AUTO) 0.5 % (0.0-2.0); EOSINOPHILS % (AUTO) 2.8 % (1.0-6.0); HEMATOCRIT 43.1 % (41-53); HEMOGLOBIN 14.9 g/dL (13.5-17.5); LYMPHOCYTES # (AUTO) 1.5 K/uL (1.0-4.8); MEAN CORPUSCULAR HEMOGLOBIN 30.3 pg (26.0-34.0); MEAN CORPUSCULAR HGB CONC 34.5 G/dL (31.0-37.0); MEAN CORPUSCULAR VOLUME 88 fL (80-100); MONOCYTES # (AUTO) 0.6 K/uL (0.1-1.0); NEUTROPHILS # (AUTO) 6.4 K/uL (1.8-7.7); NEUTROPHILS % (AUTO) 72.7 % (40.0-70.0); PLATELET COUNT (AUTO) 246 K/uL (150-450); RED CELL DISTRIBUTION WIDTH 13.8 % (11.5-14.5)
[2019-08-27] MEDS ORDERED: HYDROCODONE/ACETAMINOPHEN 5-325 MG TABLET PO ONE (17:45)
[2019-08-27 17:49] LABS: ANION GAP 11 mmol/L (8-16); CALCIUM, TOTAL 9.5 mg/dL (8.8-10.5); CARBON DIOXIDE 25 mmol/L (22-29); CHLORIDE 96 mmol/L (98-107); GLOMERULAR FILTR. RATE CALC > 60 mL/min (>60); GLUCOSE,RANDOM 159 mg/dL (70-110); POTASSIUM 3.7 mmol/L (3.5-5.1); SODIUM SERUM 132 mmol/L (136-145); UREA NITROGEN, BLOOD 16 mg/dL (7-18)
[2019-08-27] MEDS ORDERED: MULT-199 PO (17:51)
[2019-08-27 17:55] LABS: ALANINE AMINOTRANSFERASE 23 U/L (12-78); ALBUMIN 4.5 g/dL (3.4-5.0); ALKALINE PHOSPHATASE 89 U/L (46-116); ASPARTATE AMINOTRANSFERASE 13 U/L (15-37); BILIRUBIN,TOTAL 0.4 mg/dL (0.1-1.0); TOTAL PROTEIN, SERUM 7.9 g/dL (6.4-8.2)
[2019-08-27] MEDS ORDERED: MORPHINE SULFATE 4 MG/ML SYRINGE IVP ONE ×2 (18:15→19:15)
[2019-08-27] MEDS ORDERED: SODIUM CHLORIDE 0.9% 1,000 ML IV ONE (18:15)
[2019-08-27] MEDS ORDERED: CefTRIAXone 1 GM/DEXTROSE 50 ML IV ONE (19:00)
[2019-08-27] MEDS ORDERED: DEXTROSE 50%-WATER 25 GM/50 ML SYRINGE IVP PRN (19:00)
[2019-08-27] MEDS ORDERED: ACETAMINOPHEN 325 MG TABLET PO PRN (19:00)
[2019-08-27] MEDS: OxyCODONE HCL/ACETAMINOPHEN 5-325 MG TABLET PO PRN (20:26)
[2019-08-27] MEDS: DOCUSATE SODIUM 100 MG CAPSULE PO SCH (21:58)
[2019-08-27 23:00] VITALS: BP 145/85
[2019-08-27] MEDS: HEPARIN SODIUM,PORCINE 5,000 UNITS/ML VIAL SQ SCH (23:43)
[2019-08-28] MEDS: MORPHINE SULFATE 2 MG/ML SYRINGE IVP PRN ×6 (00:43→20:40)
[2019-08-28 04:40] VITALS: BP 109/74
[2019-08-28] MEDS: INSULIN LISPRO 100 UNITS/ML SQ PRN ×3 (05:56→17:57)
[2019-08-28 06:47] LABS: GLUCOMETER DEV NAME(LOC) 6N.1; GLUCOSE,POINT OF CARE 199 MG/DL (70-110)
[2019-08-28] MEDS: HEPARIN SODIUM,PORCINE 5,000 UNITS/ML VIAL SQ SCH ×3 (08:30→22:36)
[2019-08-28] MEDS: DOCUSATE SODIUM 100 MG CAPSULE PO SCH ×2 (08:32→20:40)
[2019-08-28] MEDS ORDERED: MULTIVITAMINS WITH MINERALS, THERAPEUTIC TABLET PO SCH (09:00)
[2019-08-28] MEDS ORDERED: ASPIRIN 81 MG CHEWABLE TABLET PO SCH (09:00)
[2019-08-28] MEDS ORDERED: FAMOTIDINE 20 MG TABLET PO SCH (09:00)
[2019-08-28 12:07] VITALS: BP 130/72
[2019-08-28 15:40] LABS: GLUCOMETER DEV NAME(LOC) 6N.1; GLUCOSE,POINT OF CARE 209 MG/DL (70-110)
[2019-08-28] MEDS: OxyCODONE HCL/ACETAMINOPHEN 5-325 MG TABLET PO PRN ×2 (17:53→22:34)
[2019-08-28] MEDS ORDERED: MetFORMIN HCL 500 MG TABLET PO SCH (18:00)
[2019-08-28 18:41] LABS: GLUCOMETER DEV NAME(LOC) 6N.1; GLUCOSE,POINT OF CARE 166 MG/DL (70-110)
[2019-08-28 20:35] VITALS: BP 120/80
[2019-08-29] VITALS: BP 106/68
[2019-08-29] MEDS: MORPHINE SULFATE 2 MG/ML SYRINGE IVP PRN ×2 (00:49→04:42)
[2019-08-29] MEDS: OxyCODONE HCL/ACETAMINOPHEN 5-325 MG TABLET PO PRN ×2 (02:40→06:29)
[2019-08-29 04:54] VITALS: BP 124/84
[2019-08-29] MEDS: INSULIN LISPRO 100 UNITS/ML SQ PRN (06:35)
[2019-08-29 07:53] VITALS: BP 135/59
[2019-08-29 13:21] LABS: GLUCOMETER DEV NAME(LOC) 6N.1; GLUCOSE,POINT OF CARE 165 MG/DL (70-110)
[2019-08-30 06:25] LABS: GLUCOMETER DEV NAME(LOC) 6N.1; GLUCOSE,POINT OF CARE 179 MG/DL (70-110)
== END 2019-08-29 08:30 | disposition left against medical advice (07) | DRG 384 ==
LOC: EMS 15:03 → 6N 22:00
PROVIDERS: ADMIT Internal Medicine; ATTEND Internal Medicine
DX: S31.809A Unspecified open wound of unspecified buttock, initial encounter (principal); E11.40 Type 2 diabetes mellitus with diabetic neuropathy, unspecified; E66.9 Obesity, unspecified; F17.210 Nicotine dependence, cigarettes, uncomplicated; G47.30 Sleep apnea, unspecified; E11.65 Type 2 diabetes mellitus with hyperglycemia; Z53.29 Procedure and treatment not carried out because of patient's decision for other reasons; S31.104A Unspecified open wound of abdominal wall, left lower quadrant without penetration into peritoneal cavity, initial encounter; K21.9 Gastro-esophageal reflux disease without esophagitis; X58.XXXA Exposure to other specified factors, initial encounter; I10 Essential (primary) hypertension; M19.90 Unspecified osteoarthritis, unspecified site; Z82.49 Family history of ischemic heart disease and other diseases of the circulatory system; Z83.3 Family history of diabetes mellitus; Z91.19 Patient's noncompliance with other medical treatment and regimen; Z68.30 Body mass index [BMI] 30.0-30.9, adult; Z79.899 Other long term (current) drug therapy; Z90.49 Acquired absence of other specified parts of digestive tract; Y93.89 Activity, other specified; Y92.89 Other specified places as the place of occurrence of the external cause; Y99.8 Other external cause status
CPT/HCPCS: 87070; 87081; 87205; 97162; J0696; J1644; J2270; J7030

== ENCOUNTER 2019-10-19 13:11 | Emergency (ER) | payer OTHER ==
[~2019-10-19] VITALS: Ht 175.3 cm; Wt 93.2 kg
[~2019-10-19 13:11] MED LIST changes: -HYDR-4455 PO; +MULT-199 PO; -MULT1TAB69 PO
[2019-10-19 13:29] LABS: GLUCOSE,POINT OF CARE 250 MG/DL (70-110)
[2019-10-19 15:34] LABS: BASOPHILS % (AUTO) 0.5 % (0.0-2.0); EOSINOPHILS % (AUTO) 2.7 % (1.0-6.0); HEMATOCRIT 41.5 % (41-53); HEMOGLOBIN 14.4 g/dL (13.5-17.5); LYMPHOCYTES % (AUTO) 16.1 % (22.0-44.0); MEAN CORPUSCULAR HEMOGLOBIN 30.1 pg (26.0-34.0); MEAN CORPUSCULAR HGB CONC 34.8 G/dL (31.0-37.0); MEAN CORPUSCULAR VOLUME 86 fL (80-100); MONOCYTES # (AUTO) 0.5 K/uL (0.1-1.0); MONOCYTES % (AUTO) 8.2 % (2.0-9.0); NEUTROPHILS # (AUTO) 4.6 K/uL (1.8-7.7); NEUTROPHILS % (AUTO) 72.5 % (40.0-70.0); PLATELET COUNT (AUTO) 233 K/uL (150-450); RED CELL DISTRIBUTION WIDTH 13.9 % (11.5-14.5)
[2019-10-19 15:51] LABS: ANION GAP 11 mmol/L (8-16); CALCIUM, TOTAL 8.8 mg/dL (8.8-10.5); CARBON DIOXIDE 26 mmol/L (22-29); CHLORIDE 97 mmol/L (98-107); CREATININE 1.24 mg/dL (0.60-1.30); GLOMERULAR FILTR. RATE CALC > 60 mL/min (>60); GLUCOSE,RANDOM 201 mg/dL (70-110); SODIUM SERUM 134 mmol/L (136-145); UREA NITROGEN, BLOOD 19 mg/dL (7-18)
[2019-10-19 15:57] LABS: ALANINE AMINOTRANSFERASE 21 U/L (12-78); ALBUMIN 4.5 g/dL (3.4-5.0); ALKALINE PHOSPHATASE 98 U/L (46-116); ASPARTATE AMINOTRANSFERASE 16 U/L (15-37); BILIRUBIN,TOTAL 0.4 mg/dL (0.1-1.0); LIPASE 146 U/L (73-393); TOTAL PROTEIN, SERUM 7.5 g/dL (6.4-8.2)
[2019-10-19 16:18] LABS: APPEARANCE,URINE CLEAR (CLEAR); BILIRUBIN,URINE NEGATIVE (NEGATIVE); GLUCOSE, URINE (UA) 500 mg/dL (NEGATIVE); KETONES,URINE NEGATIVE (NEGATIVE); LEUKOCYTE ESTERASE ,URINE NEGATIVE (NEGATIVE); NITRATE,URINE NEGATIVE (NEGATIVE); OCCULT BLOOD,URINE NEGATIVE (NEGATIVE); PH,URINE 6.5 (5.0-8.0); PROTEIN,URINE NEGATIVE (NEGATIVE); UROBILINOGEN,URINE 0.2 mg/dL (<=1.0)
[2019-10-19 16:25] LABS: BACTERIA,URINE None Seen /HPF (None Seen); RBC,URINE None Seen /HPF (0-2); WBC,URINE None Seen /HPF (0-5)
[2019-10-19] MEDS ORDERED: PB/HYOSCY/ATR/SCOP/LIDO/MAALOX 55 ML BOTTLE PO ONE (16:30)
[2019-10-19] MEDS ORDERED: SODIUM CHLORIDE 0.9% 1,000 ML IV ONE (16:30)
[2019-10-19] MEDS ORDERED: FAMOTIDINE 10 MG/ML 2 ML VIAL IVP ONE (16:30)
[2019-10-19 17:45] VITALS: BP 129/84
== END 2019-10-19 17:49 | disposition home or self-care (01) ==
LOC: EMS 13:12
DX: R10.12 Left upper quadrant pain (principal); E11.40 Type 2 diabetes mellitus with diabetic neuropathy, unspecified; G47.00 Insomnia, unspecified; I10 Essential (primary) hypertension; K21.9 Gastro-esophageal reflux disease without esophagitis; F17.210 Nicotine dependence, cigarettes, uncomplicated; Z98.890 Other specified postprocedural states; Z79.899 Other long term (current) drug therapy; Z90.49 Acquired absence of other specified parts of digestive tract; Z79.84 Long term (current) use of oral hypoglycemic drugs
CPT/HCPCS: 36415; 80053; 81001; 82962; 83690; 84484; 85025; 93005; 96374; 99284; J3490; J7030

== ENCOUNTER 2020-06-24 17:51 | Emergency (ER) | payer MEDICAID, OTHER ==
[~2020-06-24] VITALS: Ht 165.1 cm; Wt 77.3 kg
[~2020-06-24 17:51] MED LIST changes: +GABA-1181 PO; -GABA-531 PO
[2020-06-24] MEDS ORDERED: KETOROLAC TROMETHAMINE 30 MG/ML VIAL IM ONE (19:15)
[2020-06-24 19:50] VITALS: BP 115/77
== END 2020-06-24 20:17 | disposition home or self-care (01) ==
LOC: EMS 18:04
DX: M54.31 Sciatica, right side (principal); E11.9 Type 2 diabetes mellitus without complications; I10 Essential (primary) hypertension; F17.210 Nicotine dependence, cigarettes, uncomplicated
CPT/HCPCS: 96372; 99283; J1885

== ENCOUNTER 2020-09-11 20:50 | Emergency (ER) | payer MEDICAID ==
[~2020-09-11] VITALS: Ht 166.4 cm; Wt 80.9 kg
[2020-09-12] MEDS ORDERED: IBUPROFEN 600 MG TABLET PO ONE (01:15)
[2020-09-12 01:20] VITALS: BP 140/80
== END 2020-09-12 01:21 | disposition home or self-care (01) ==
LOC: EMS 20:50
DX: R22.2 Localized swelling, mass and lump, trunk (principal); I10 Essential (primary) hypertension; E11.9 Type 2 diabetes mellitus without complications; K21.9 Gastro-esophageal reflux disease without esophagitis; F17.210 Nicotine dependence, cigarettes, uncomplicated; Z79.899 Other long term (current) drug therapy

== ENCOUNTER 2020-12-10 20:36 | Emergency (ER) | payer MEDICAID ==
[~2020-12-10] VITALS: Ht 165.1 cm; Wt 79.5 kg
[2020-12-10] MEDS ORDERED: METF-960 PO (21:04)
[2020-12-10] MEDS ORDERED: LISI-894 PO (21:04)
[2020-12-10 23:35] LABS: BASOPHILS % (AUTO) 0.8 % (0.0-2.0); EOSINOPHILS % (AUTO) 4.4 % (1.0-6.0); HEMATOCRIT 39.6 % (41-53); HEMOGLOBIN 13.7 g/dL (13.5-17.5); LYMPHOCYTES # (AUTO) 1.3 K/uL (1.0-4.8); LYMPHOCYTES % (AUTO) 14.2 % (22.0-44.0); MEAN CORPUSCULAR HEMOGLOBIN 29.8 pg (26.0-34.0); MEAN CORPUSCULAR HGB CONC 34.6 G/dL (31.0-37.0); MEAN CORPUSCULAR VOLUME 86 fL (80-100); MONOCYTES # (AUTO) 0.8 K/uL (0.1-1.0); MONOCYTES % (AUTO) 8.3 % (2.0-9.0); NEUTROPHILS # (AUTO) 6.5 K/uL (1.8-7.7); NEUTROPHILS % (AUTO) 72.3 % (40.0-70.0); PLATELET COUNT (AUTO) 208 K/uL (150-450); RED BLOOD CELL COUNT(AUTO) 4.58 MIL/uL (4.50-5.90); RED CELL DISTRIBUTION WIDTH 13.9 % (11.5-14.5)
[2020-12-10 23:43] LABS: ANION GAP 11 mmol/L (8-16); CALCIUM, TOTAL 9.4 mg/dL (8.8-10.5); CARBON DIOXIDE 27 mmol/L (22-29); CHLORIDE 98 mmol/L (98-107); CREATININE 1.15 mg/dL (0.60-1.30); GLOMERULAR FILTR. RATE CALC > 60 mL/min (>60); GLUCOSE,RANDOM 330 mg/dL (70-110); POTASSIUM 3.7 mmol/L (3.5-5.1); SODIUM SERUM 136 mmol/L (136-145); UREA NITROGEN, BLOOD 29 mg/dL (7-18)
[2020-12-10 23:53] LABS: ALANINE AMINOTRANSFERASE 23 U/L (12-78); ALBUMIN 4.8 g/dL (3.4-5.0); ALKALINE PHOSPHATASE 105 U/L (46-116); ASPARTATE AMINOTRANSFERASE 14 U/L (15-37); BILIRUBIN,TOTAL 0.5 mg/dL (0.1-1.0); TOTAL PROTEIN, SERUM 8.2 g/dL (6.4-8.2)
[2020-12-11] MEDS ORDERED: KETOROLAC TROMETHAMINE 30 MG/ML VIAL IVP ONE (00:30)
[2020-12-11] MEDS ORDERED: MORPHINE SULFATE 2 MG/ML SYRINGE IVP ONE ×2 (00:30→01:30)
[2020-12-11] MEDS ORDERED: SODIUM CHLORIDE 0.9% 1,000 ML IV ONE (00:45)
[2020-12-11] MEDS ORDERED: ACETAMINOPHEN 500 MG TABLET PO ONE (01:30)
[2020-12-11 01:34] LABS: COVID AG,FIA SOURCE NASOPHARYNGEAL
[2020-12-11 04:29] VITALS: BP 124/82
[2020-12-11 06:23] LABS: GLUCOSE,POINT OF CARE 248 MG/DL (70-110)
[2020-12-11 07:02] LABS: GLUCOSE,POINT OF CARE 189 MG/DL (70-110)
== END 2020-12-11 05:28 | disposition designated cancer center or children's hospital (05) ==
LOC: EMS 20:36
DX: R10.30 Lower abdominal pain, unspecified (principal); N50.82 Scrotal pain; Z20.822 Contact with and (suspected) exposure to COVID-19
CPT/HCPCS: 76870; 80053; 82962; 85025; 87426; 96361; 96374; 96375; 96376; 99285; J1885; J2270

== ENCOUNTER 2021-06-22 18:25 | Emergency (ER) | payer MEDICAID ==
[~2021-06-22] VITALS: Ht 165.1 cm; Wt 72.7 kg
[~2021-06-22 18:25] MED LIST changes: +LISI-894 PO; +METF-960 PO
[2021-06-22 20:01] LABS: BASOPHILS % (AUTO) 0.3 % (0.0-2.0); EOSINOPHILS % (AUTO) 1.6 % (1.0-6.0); HEMATOCRIT 39.1 % (41-53); HEMOGLOBIN 13.4 g/dL (13.5-17.5); LYMPHOCYTES # (AUTO) 1.1 K/uL (1.0-4.8); LYMPHOCYTES % (AUTO) 19.5 % (22.0-44.0); MEAN CORPUSCULAR HEMOGLOBIN 29.3 pg (26.0-34.0); MEAN CORPUSCULAR HGB CONC 34.4 G/dL (31.0-37.0); MEAN CORPUSCULAR VOLUME 85 fL (80-100); MONOCYTES # (AUTO) 0.5 K/uL (0.1-1.0); MONOCYTES % (AUTO) 8.1 % (2.0-9.0); NEUTROPHILS % (AUTO) 70.5 % (40.0-70.0); PLATELET COUNT (AUTO) 356 K/uL (150-450); RED BLOOD CELL COUNT(AUTO) 4.59 MIL/uL (4.50-5.90); RED CELL DISTRIBUTION WIDTH 13.6 % (11.5-14.5)
[2021-06-22 20:12] LABS: CALCIUM, TOTAL 9.4 mg/dL (8.8-10.5); CREATININE 1.28 mg/dL (0.60-1.30); POTASSIUM 3.9 mmol/L (3.5-5.1)
[2021-06-22 20:18] LABS: ALBUMIN 4.4 g/dL (3.4-5.0); BILIRUBIN,TOTAL 0.3 mg/dL (0.1-1.0); TOTAL PROTEIN, SERUM 8.8 g/dL (6.4-8.2)
[2021-06-22 20:21] LABS: COVID AG,FIA SOURCE NASOPHARYNGEAL
[2021-06-22 21:25] VITALS: BP 119/85
== END 2021-06-22 21:40 | disposition home or self-care (01) ==
LOC: EMS 18:28
DX: E11.65 Type 2 diabetes mellitus with hyperglycemia (principal); I10 Essential (primary) hypertension; Z20.822 Contact with and (suspected) exposure to COVID-19
CPT/HCPCS: 36415; 80053; 82550; 82962; 84484; 85025; 87426; 99283; U0003

== ENCOUNTER 2021-07-11 20:39 | Emergency (ER) | payer MEDICAID ==
[~2021-07-11] VITALS: Ht 167.6 cm; Wt 77.3 kg
[2021-07-11] MEDS ORDERED: ACETAMINOPHEN 325 MG TABLET PO ONE (22:15)
[2021-07-11] MEDS ORDERED: IBUPROFEN 400 MG TABLET PO ONE (22:15)
[2021-07-11 22:34] LABS: GLUCOMETER DEV NAME(LOC) ERT.5; GLUCOSE,POINT OF CARE 178 MG/DL (70-110)
[2021-07-12 00:09] VITALS: BP 106/67
== END 2021-07-12 00:26 | disposition home or self-care (01) ==
LOC: EMS 20:41
DX: S93.401A Sprain of unspecified ligament of right ankle, initial encounter (principal); I10 Essential (primary) hypertension; E11.9 Type 2 diabetes mellitus without complications; K21.9 Gastro-esophageal reflux disease without esophagitis; F17.210 Nicotine dependence, cigarettes, uncomplicated; Z79.84 Long term (current) use of oral hypoglycemic drugs; Z79.899 Other long term (current) drug therapy; X50.0XXA Overexertion from strenuous movement or load, initial encounter; Y93.89 Activity, other specified; Y92.89 Other specified places as the place of occurrence of the external cause; Y99.8 Other external cause status
CPT/HCPCS: 82962; 99284

== ENCOUNTER 2021-07-27 22:22 | Emergency (ER) | payer MEDICAID ==
[~2021-07-27] VITALS: Ht 152.4 cm; Wt 77.3 kg
[2021-07-27 22:32] VITALS: BP 116/66
[2021-07-28 01:57] LABS: COVID AG,FIA SOURCE NASOPHARYNGEAL
== END 2021-07-28 03:14 | disposition home or self-care (01) ==
LOC: EMS 22:25
DX: J20.9 Acute bronchitis, unspecified (principal); R53.83 Other fatigue; E11.9 Type 2 diabetes mellitus without complications; K21.9 Gastro-esophageal reflux disease without esophagitis; I10 Essential (primary) hypertension; F17.210 Nicotine dependence, cigarettes, uncomplicated; F12.90 Cannabis use, unspecified, uncomplicated; Z20.822 Contact with and (suspected) exposure to COVID-19; Z90.89 Acquired absence of other organs; Z79.84 Long term (current) use of oral hypoglycemic drugs; Z79.899 Other long term (current) drug therapy
CPT/HCPCS: 87426; 99283; U0003

== ENCOUNTER 2021-08-22 19:28 | Emergency (ER) | payer MEDICAID ==
[~2021-08-22] VITALS: Ht 167.6 cm; Wt 77.3 kg
[~2021-08-22 19:28] MED LIST changes: +METF-1211 PO; -METF-960 PO
[2021-08-22] MEDS ORDERED: BISMUTH SUBSALICYLATE 524 MG/30 ML SUSPENSION UDCUP PO ONE (22:15)
[2021-08-22] MEDS ORDERED: SODIUM CHLORIDE 0.9% 1,000 ML IV ONE (22:15)
[2021-08-22] MEDS ORDERED: SODIUM PHOS/SODIUM BIPHOS 133 ML ENEMA PR ONE (22:45)
[2021-08-22 23:57] VITALS: BP 126/68
== END 2021-08-23 00:42 | disposition left against medical advice (07) ==
LOC: EMS 19:28
DX: E11.43 Type 2 diabetes mellitus with diabetic autonomic (poly)neuropathy (principal); K31.84 Gastroparesis; R19.7 Diarrhea, unspecified; K21.9 Gastro-esophageal reflux disease without esophagitis; I10 Essential (primary) hypertension; F17.210 Nicotine dependence, cigarettes, uncomplicated; F12.90 Cannabis use, unspecified, uncomplicated; Z90.89 Acquired absence of other organs; Z79.84 Long term (current) use of oral hypoglycemic drugs; Z79.899 Other long term (current) drug therapy
CPT/HCPCS: 74022; 99283

== ENCOUNTER 2021-08-29 01:47 | Emergency (ER) | payer MEDICAID ==
[~2021-08-29] VITALS: Ht 165.1 cm; Wt 59.1 kg
[2021-08-29 01:51] VITALS: BP 114/68
== END 2021-08-29 03:56 | disposition left against medical advice (07) ==
LOC: EMS 01:50
DX: R52 Pain, unspecified (principal); Z53.21 Procedure and treatment not carried out due to patient leaving prior to being seen by health care provider

== ENCOUNTER 2021-08-31 17:53 | Inpatient (IN) | payer MEDICAID ==
[~2021-08-31] VITALS: Ht 170.2 cm; Wt 75.1 kg
[2021-08-31] MEDS ORDERED: ACETAMINOPHEN 500 MG TABLET PO ONE (18:15)
[2021-08-31] MEDS ORDERED: SODIUM CHLORIDE 0.9% 1,000 ML IV ONE ×2 (18:15→20:30)
[2021-08-31 18:35] LABS: BASOPHILS % (AUTO) 0.8 % (0.0-2.0); EOSINOPHILS % (AUTO) 2.8 % (1.0-6.0); HEMATOCRIT 36.8 % (41-53); HEMOGLOBIN 12.5 g/dL (13.5-17.5); LYMPHOCYTES # (AUTO) 1.7 K/uL (1.0-4.8); LYMPHOCYTES % (AUTO) 26.1 % (22.0-44.0); MEAN CORPUSCULAR VOLUME 88 fL (80-100); MONOCYTES # (AUTO) 0.5 K/uL (0.1-1.0); MONOCYTES % (AUTO) 7.7 % (2.0-9.0); NEUTROPHILS % (AUTO) 62.6 % (40.0-70.0); PLATELET COUNT (AUTO) 265 K/uL (150-450); RED BLOOD CELL COUNT(AUTO) 4.16 MIL/uL (4.50-5.90); RED CELL DISTRIBUTION WIDTH 14.4 % (11.5-14.5)
[2021-08-31 18:43] LABS: CALCIUM, TOTAL 9.8 mg/dL (8.8-10.5); CREATININE 2.35 mg/dL (0.60-1.30); POTASSIUM 4.7 mmol/L (3.5-5.1)
[2021-08-31] MEDS ORDERED: MORPHINE SULFATE 2 MG/ML SYRINGE IVP ONE (20:30)
[2021-08-31] MEDS ORDERED: ONDANSETRON HCL 4 MG/2 ML VIAL IVP PRN (20:45)
[2021-08-31] MEDS ORDERED: ACETAMINOPHEN 325 MG TABLET PO PRN (20:45)
[2021-08-31 21:09] LABS: COVID AG,FIA SOURCE NASOPHARYNGEAL
[2021-08-31 21:16] LABS: APPEARANCE,URINE CLEAR (CLEAR); BILIRUBIN,URINE NEGATIVE (NEGATIVE); GLUCOSE, URINE (UA) NEGATIVE (NEGATIVE); KETONES,URINE NEGATIVE (NEGATIVE); LEUKOCYTE ESTERASE ,URINE NEGATIVE (NEGATIVE); NITRATE,URINE NEGATIVE (NEGATIVE); OCCULT BLOOD,URINE NEGATIVE (NEGATIVE); PROTEIN,URINE NEGATIVE (NEGATIVE); UROBILINOGEN,URINE 0.2 mg/dL (<=1.0)
[2021-08-31] MEDS: LevETIRAcetam 500 MG in DEXTROSE 5%-WATER 100 ML IV SCH (21:16)
[2021-08-31 21:17] LABS: CREATININE,URINE RANDOM 78.6 mg/dL (30.0-125.0); SODIUM,URINE RANDOM 51 mmol/l (20-110)
[2021-08-31 21:45] LABS: HEMOGLOBIN A1C 7.7 % (3.8-5.6)
[2021-09-01 00:28] LABS: AMPHET/METH SCREEN,URINE POSITIVE (NEGATIVE); BARBITURATE SCREEN, URINE NEGATIVE (NEGATIVE); BENZODIAZEPINES SCREEN,URINE NEGATIVE (NEGATIVE); CANNABINOID SCREEN,URINE NEGATIVE (NEGATIVE); COCAINE SCREEN,URINE NEGATIVE (NEGATIVE); METHADONE SCREEN, URINE POSITIVE (NEGATIVE); OPIATE SCREEN,URINE NEGATIVE (NEGATIVE); PHENCYCLIDINE SCREEN,URINE NEGATIVE (NEGATIVE)
[2021-09-01] MEDS ORDERED: SODIUM CHLORIDE 0.9% 250 ML IV ONE ×2 (03:45→05:15)
[2021-09-01] MEDS ORDERED: ACETAMINOPHEN 650 MG/20.3 ML SOLUTION UDCUP PO PRN (03:45)
[2021-09-01] MEDS ORDERED: DEXTROSE 50%-WATER 25 GM/50 ML SYRINGE IVP PRN (05:30)
[2021-09-01] MEDS: SODIUM CHLORIDE 0.9% 1,000 ML IV SCH ×2 (05:46→16:47)
[2021-09-01 05:48] LABS: EOSINOPHILS % (AUTO) 5.4 % (1.0-6.0); HEMOGLOBIN 10.6 g/dL (13.5-17.5); LYMPHOCYTES # (AUTO) 1.7 K/uL (1.0-4.8); LYMPHOCYTES % (AUTO) 42.8 % (22.0-44.0); MEAN CORPUSCULAR HEMOGLOBIN 30.3 pg (26.0-34.0); MEAN CORPUSCULAR HGB CONC 34.1 G/dL (31.0-37.0); MEAN CORPUSCULAR VOLUME 89 fL (80-100); MONOCYTES # (AUTO) 0.4 K/uL (0.1-1.0); MONOCYTES % (AUTO) 9.1 % (2.0-9.0); NEUTROPHILS # (AUTO) 1.7 K/uL (1.8-7.7); NEUTROPHILS % (AUTO) 41.7 % (40.0-70.0); PLATELET COUNT (AUTO) 237 K/uL (150-450); RED BLOOD CELL COUNT(AUTO) 3.48 MIL/uL (4.50-5.90); RED CELL DISTRIBUTION WIDTH 14.3 % (11.5-14.5)
[2021-09-01 05:56] LABS: ANION GAP 5 mmol/L (8-16); CALCIUM, TOTAL 8.3 mg/dL (8.8-10.5); CARBON DIOXIDE 29 mmol/L (22-29); CHLORIDE 104 mmol/L (98-107); CREATININE 1.24 mg/dL (0.60-1.30); GLOMERULAR FILTR. RATE CALC > 60 mL/min (>60); GLUCOSE,RANDOM 111 mg/dL (70-110); POTASSIUM 3.8 mmol/L (3.5-5.1); SODIUM SERUM 138 mmol/L (136-145); UREA NITROGEN, BLOOD 19 mg/dL (7-18)
[2021-09-01 06:17] LABS: GLUCOMETER DEV NAME(LOC) ERT.5; GLUCOSE,POINT OF CARE 103 MG/DL (70-110)
[2021-09-01] MEDS ORDERED: SODIUM CHLORIDE 0.9% 500 ML IV ONE (07:15)
[2021-09-01 15:36] VITALS: BP 99/60
[2021-09-01] MEDS: INSULIN LISPRO 100 UNITS/ML SQ PRN ×2 (17:32→20:23)
[2021-09-01 17:41] LABS: GLUCOMETER DEV NAME(LOC) 5S.2B; GLUCOSE,POINT OF CARE 184 MG/DL (70-110)
[2021-09-01] MEDS ORDERED: INFLUENZA VIRUS VACCINE QVS 2021-22 (6MO+)/PF 60 MCG/0.5 ML SYRINGE IM. ONE (18:45)
[2021-09-01 19:30] VITALS: BP 100/56
[2021-09-01] MEDS: GABAPENTIN 300 MG CAPSULE PO SCH (20:21)
[2021-09-01] MEDS: LevETIRAcetam 500 MG in DEXTROSE 5%-WATER 100 ML IV SCH (20:21)
[2021-09-02 00:03] VITALS: BP 96/53
[2021-09-02 04:17] LABS: GLUCOMETER DEV NAME(LOC) 5S.2B; GLUCOSE,POINT OF CARE 180 MG/DL (70-110)
[2021-09-02 05:13] VITALS: BP 95/55
[2021-09-02] MEDS: SODIUM CHLORIDE 0.9% 1,000 ML IV SCH (06:09)
[2021-09-02] MEDS ORDERED: GlipiZIDE 10 MG TABLET PO SCH (06:30)
[2021-09-02 07:30] VITALS: BP 99/56
[2021-09-02] MEDS: GABAPENTIN 300 MG CAPSULE PO SCH ×2 (08:05→15:25)
[2021-09-02] MEDS ORDERED: SIMVASTATIN 20 MG TABLET PO SCH (09:00)
[2021-09-02] MEDS ORDERED: MULTIVITAMINS WITH IRON TABLET PO SCH (09:00)
[2021-09-02] MEDS ORDERED: METHADONE HCL 10 MG TABLET PO ONE (09:15)
[2021-09-02 11:08] VITALS: BP 94/56
[2021-09-02] MEDS: INSULIN LISPRO 100 UNITS/ML SQ PRN (11:30)
[2021-09-02 15:46] VITALS: BP 98/64
[2021-09-02 20:31] LABS: GLUCOMETER DEV NAME(LOC) 5N.3; GLUCOSE,POINT OF CARE 149 MG/DL (70-110)
[2021-09-03 02:05] LABS: GLUCOMETER DEV NAME(LOC) 5S.1; GLUCOSE,POINT OF CARE 113 MG/DL (70-110)
== END 2021-09-02 16:10 | disposition home or self-care (01) | DRG 56 ==
LOC: EMS 17:56 → 5S 09-01 13:52
PROVIDERS: ADMIT Internal Medicine; ATTEND Internal Medicine
DX: S06.389A Contusion, laceration, and hemorrhage of brainstem with loss of consciousness of unspecified duration, initial encounter (principal); N17.0 Acute kidney failure with tubular necrosis; E11.40 Type 2 diabetes mellitus with diabetic neuropathy, unspecified; I95.9 Hypotension, unspecified; E11.65 Type 2 diabetes mellitus with hyperglycemia; E86.0 Dehydration; I10 Essential (primary) hypertension; F15.10 Other stimulant abuse, uncomplicated; R51.9 Headache, unspecified; Z20.822 Contact with and (suspected) exposure to COVID-19; K21.9 Gastro-esophageal reflux disease without esophagitis; W18.39XA Other fall on same level, initial encounter; Y93.89 Activity, other specified; Z83.3 Family history of diabetes mellitus; Z90.49 Acquired absence of other specified parts of digestive tract; Y92.89 Other specified places as the place of occurrence of the external cause; Y99.8 Other external cause status
CPT/HCPCS: 70450; 70544; 70551; 80048; 81003; 82570; 82962; 83036; 83735; 84300; 85025; 87040; 93005; 93306; 99285; J0712; J2270; J7030; J7060

== ENCOUNTER 2021-09-14 09:04 | Emergency (ER) | payer MEDICAID ==
[~2021-09-14] VITALS: Ht 165.1 cm; Wt 68.5 kg
[~2021-09-14 09:04] MED LIST changes: -HYDR25TA PO; -LISI-894 PO
[2021-09-14 09:15] VITALS: BP 124/72
[2021-09-14] MEDS ORDERED: LevETIRAcetam 1,000 MG in DEXTROSE 5%-WATER 100 ML IV ONE (09:15)
[2021-09-14 09:28] LABS: BASOPHILS % (AUTO) 0.9 % (0.0-2.0); EOSINOPHILS % (AUTO) 2.7 % (1.0-6.0); HEMATOCRIT 40.2 % (41-53); HEMOGLOBIN 13.6 g/dL (13.5-17.5); LYMPHOCYTES # (AUTO) 0.9 K/uL (1.0-4.8); LYMPHOCYTES % (AUTO) 15.8 % (22.0-44.0); MEAN CORPUSCULAR HEMOGLOBIN 29.6 pg (26.0-34.0); MEAN CORPUSCULAR HGB CONC 33.8 G/dL (31.0-37.0); MEAN CORPUSCULAR VOLUME 88 fL (80-100); MONOCYTES # (AUTO) 0.5 K/uL (0.1-1.0); MONOCYTES % (AUTO) 7.6 % (2.0-9.0); NEUTROPHILS # (AUTO) 4.3 K/uL (1.8-7.7); PLATELET COUNT (AUTO) 239 K/uL (150-450); RED BLOOD CELL COUNT(AUTO) 4.58 MIL/uL (4.50-5.90); RED CELL DISTRIBUTION WIDTH 13.9 % (11.5-14.5)
[2021-09-14 09:39] LABS: PROTHROMBIN TIME 10.4 SEC (9.4-11.6)
[2021-09-14 09:45] LABS: B-TYPE NATRIURETIC PEPTIDE 17 pg/mL (0-100)
[2021-09-14 09:46] LABS: APPEARANCE,URINE CLOUDY (CLEAR)
[2021-09-14 09:47] LABS: BILIRUBIN,URINE NEGATIVE (NEGATIVE); GLUCOSE, URINE (UA) 250 mg/dL (NEGATIVE); KETONES,URINE TRACE mg/dL (NEGATIVE); LEUKOCYTE ESTERASE ,URINE NEGATIVE (NEGATIVE); NITRATE,URINE NEGATIVE (NEGATIVE); OCCULT BLOOD,URINE NEGATIVE (NEGATIVE); PH,URINE 7.5 (5.0-8.0); PROTEIN,URINE NEGATIVE (NEGATIVE)
[2021-09-14 09:52] LABS: AMPHET/METH SCREEN,URINE POSITIVE (NEGATIVE); BARBITURATE SCREEN, URINE NEGATIVE (NEGATIVE); BENZODIAZEPINES SCREEN,URINE NEGATIVE (NEGATIVE); CANNABINOID SCREEN,URINE NEGATIVE (NEGATIVE); COCAINE SCREEN,URINE NEGATIVE (NEGATIVE); METHADONE SCREEN, URINE POSITIVE (NEGATIVE); OPIATE SCREEN,URINE NEGATIVE (NEGATIVE)
[2021-09-14 09:53] LABS: ANION GAP 6 mmol/L (8-16); CALCIUM, TOTAL 9.2 mg/dL (8.8-10.5); CARBON DIOXIDE 30 mmol/L (22-29); CHLORIDE 101 mmol/L (98-107); CREATININE 0.99 mg/dL (0.60-1.30); GLOMERULAR FILTR. RATE CALC > 60 mL/min (>60); GLUCOSE,RANDOM 258 mg/dL (70-110); POTASSIUM 4.2 mmol/L (3.5-5.1); SODIUM SERUM 137 mmol/L (136-145); UREA NITROGEN, BLOOD 20 mg/dL (7-18)
[2021-09-14 09:59] LABS: PHENCYCLIDINE SCREEN,URINE NEGATIVE (NEGATIVE)
[2021-09-14 10:00] LABS: BACTERIA,URINE None Seen /HPF (None Seen); RBC,URINE None Seen /HPF (0-2); WBC,URINE None Seen /HPF (0-5)
[2021-09-14 10:01] LABS: AMORPHOUS SEDIMENT,UR Moderate /LPF (None Seen)
[2021-09-14 10:17] LABS: ALANINE AMINOTRANSFERASE 16 U/L (12-78); ALBUMIN 3.6 g/dL (3.4-5.0); ALKALINE PHOSPHATASE 100 U/L (46-116); ASPARTATE AMINOTRANSFERASE 16 U/L (15-37); BILIRUBIN,TOTAL 0.3 mg/dL (0.1-1.0); CREATINE KINASE, TOTAL ONLY 123 U/L (39-308); TOTAL PROTEIN, SERUM 7.2 g/dL (6.4-8.2)
== END 2021-09-14 10:05 | disposition left against medical advice (07) ==
LOC: EMS 09:09
DX: R56.9 Unspecified convulsions (principal); E11.9 Type 2 diabetes mellitus without complications; F15.90 Other stimulant use, unspecified, uncomplicated; F17.210 Nicotine dependence, cigarettes, uncomplicated; Z79.84 Long term (current) use of oral hypoglycemic drugs; Z79.899 Other long term (current) drug therapy
CPT/HCPCS: 36415; 70450; 71045; 80053; 80307; 81001; 82550; 83880; 84484; 85025; 85610; 85730; 99285; G0480; J0712; J7060; 93005

== ENCOUNTER 2021-11-25 16:27 | Inpatient (IN) | payer MEDICAID ==
[~2021-11-25] VITALS: Ht 167.6 cm; Wt 68.1 kg
[2021-11-25] MEDS ORDERED: LORazepam 2 MG/ML VIAL IM ONE ×2 (17:00→20:15)
[2021-11-25 21:04] LABS: BASOPHILS % (AUTO) 0.1 % (0.0-2.0); EOSINOPHILS % (AUTO) 1.8 % (1.0-6.0); HEMATOCRIT 30.4 % (41-53); HEMOGLOBIN 10.7 g/dL (13.5-17.5); LYMPHOCYTES # (AUTO) 0.6 K/uL (1.0-4.8); LYMPHOCYTES % (AUTO) 6.6 % (22.0-44.0); MEAN CORPUSCULAR HEMOGLOBIN 29.4 pg (26.0-34.0); MEAN CORPUSCULAR HGB CONC 35.1 G/dL (31.0-37.0); MEAN CORPUSCULAR VOLUME 84 fL (80-100); MONOCYTES # (AUTO) 0.5 K/uL (0.1-1.0); MONOCYTES % (AUTO) 5.1 % (2.0-9.0); NEUTROPHILS # (AUTO) 8.1 K/uL (1.8-7.7); PLATELET COUNT (AUTO) 308 K/uL (150-450); RED BLOOD CELL COUNT(AUTO) 3.63 MIL/uL (4.50-5.90); RED CELL DISTRIBUTION WIDTH 14.4 % (11.5-14.5)
[2021-11-25 21:15] LABS: ANION GAP 11 mmol/L (8-16); CALCIUM, TOTAL 9.3 mg/dL (8.8-10.5); CARBON DIOXIDE 24 mmol/L (22-29); CHLORIDE 102 mmol/L (98-107); CREATININE 2.27 mg/dL (0.60-1.30); GLOMERULAR FILTR. RATE CALC 30 mL/min (>60); GLUCOSE,RANDOM 207 mg/dL (70-110); POTASSIUM 4.5 mmol/L (3.5-5.1); SODIUM SERUM 137 mmol/L (136-145); UREA NITROGEN, BLOOD 51 mg/dL (7-18)
[2021-11-25 21:38] LABS: NEUTROPHILS % (AUTO) 86.4 % (40.0-70.0)
[2021-11-25 21:40] LABS: ALANINE AMINOTRANSFERASE 21 U/L (12-78); ALBUMIN 3.6 g/dL (3.4-5.0); ALKALINE PHOSPHATASE 124 U/L (46-116); ASPARTATE AMINOTRANSFERASE 19 U/L (15-37); BILIRUBIN,TOTAL 0.6 mg/dL (0.1-1.0); CREATINE KINASE, TOTAL ONLY 335 U/L (39-308)
[2021-11-25] MEDS ORDERED: SODIUM CHLORIDE 0.9% 1,000 ML IV ONE ×2 (21:45→22:15)
[2021-11-25] MEDS ORDERED: ONDANSETRON HCL 4 MG/2 ML VIAL IVP PRN ×2 (22:15→22:30)
[2021-11-25] MEDS ORDERED: ACETAMINOPHEN 325 MG TABLET PO PRN ×2 (22:15→22:30)
[2021-11-25] MEDS ORDERED: ZOLPIDEM TARTRATE 5 MG TABLET PO PRN (22:30)
[2021-11-25] MEDS ORDERED: ALBUTEROL SULFATE 2.5 MG/0.5 ML NEB SOLUTION NEB PRN (22:30)
[2021-11-25] MEDS ORDERED: BISACODYL 10 MG RECTAL RECTAL SUPPOSITORY PR PRN (22:30)
[2021-11-25] MEDS ORDERED: IPRATROPIUM BROMIDE 0.5 MG/2.5 ML NEB SOLUTION NEB PRN (22:30)
[2021-11-25] MEDS ORDERED: MAGNESIUM HYDROXIDE SUSPENSION 30 ML UDCUP PO PRN (22:30)
[2021-11-25 22:41] LABS: COVID AG,FIA SOURCE NASOPHARYNGEAL
[2021-11-25] MEDS ORDERED: LORazepam 2 MG/ML VIAL IVP ONE (22:45)
[2021-11-25] MEDS ORDERED: LISI40TA9 PO (23:20)
[2021-11-25] MEDS ORDERED: ATOR40TA71 PO (23:20)
[2021-11-25] MEDS ORDERED: AMLO5TAB66 PO (23:20)
[2021-11-25] MEDS ORDERED: HYDR25TA PO (23:20)
[2021-11-25] MEDS ORDERED: QUET400T13 PO (23:20)
[2021-11-26] MEDS: HEPARIN SODIUM,PORCINE 5,000 UNITS/ML VIAL SQ SCH ×2 (00:04→08:00)
[2021-11-26] MEDS ORDERED: INSULIN LISPRO 100 UNITS/ML SQ PRN (01:45)
[2021-11-26] MEDS ORDERED: DEXTROSE 50%-WATER 25 GM/50 ML SYRINGE IVP PRN (01:45)
[2021-11-26] MEDS: SODIUM CHLORIDE 0.9% 1,000 ML IV SCH ×2 (01:58→11:14)
[2021-11-26 02:03] VITALS: BP 98/65
[2021-11-26 03:35] VITALS: BP 103/70
[2021-11-26 07:40] VITALS: BP 111/60
[2021-11-26] MEDS ORDERED: PANTOPRAZOLE SODIUM 40 MG/VIAL IVP SCH (09:00)
[2021-11-26 09:41] LABS: AMPHET/METH SCREEN,URINE POSITIVE (NEGATIVE); BARBITURATE SCREEN, URINE NEGATIVE (NEGATIVE); BENZODIAZEPINES SCREEN,URINE NEGATIVE (NEGATIVE); CANNABINOID SCREEN,URINE NEGATIVE (NEGATIVE); COCAINE SCREEN,URINE NEGATIVE (NEGATIVE); METHADONE SCREEN, URINE POSITIVE (NEGATIVE); OPIATE SCREEN,URINE POSITIVE (NEGATIVE)
[2021-11-26 09:53] LABS: PHENCYCLIDINE SCREEN,URINE NEGATIVE (NEGATIVE)
[2021-11-26 21:41] LABS: GLUCOMETER DEV NAME(LOC) 5N.3; GLUCOSE,POINT OF CARE 157 MG/DL (70-110)
== END 2021-11-26 12:40 | disposition left against medical advice (07) | DRG 812 ==
LOC: EMS 16:29 → UNDOADMIN 11-26 00:12 → 5S 11-26 00:12
PROVIDERS: ADMIT Hospitalist; ATTEND Hospitalist
DX: T50.991A Poisoning by other drugs, medicaments and biological substances, accidental (unintentional), initial encounter (principal); G92.8 Other toxic encephalopathy; N17.9 Acute kidney failure, unspecified; M62.82 Rhabdomyolysis; E11.22 Type 2 diabetes mellitus with diabetic chronic kidney disease; E11.40 Type 2 diabetes mellitus with diabetic neuropathy, unspecified; E11.65 Type 2 diabetes mellitus with hyperglycemia; F15.90 Other stimulant use, unspecified, uncomplicated; F09 Unspecified mental disorder due to known physiological condition; Z82.49 Family history of ischemic heart disease and other diseases of the circulatory system; Z87.891 Personal history of nicotine dependence; Z83.3 Family history of diabetes mellitus; Z90.49 Acquired absence of other specified parts of digestive tract; Y92.89 Other specified places as the place of occurrence of the external cause; F11.23 Opioid dependence with withdrawal
CPT/HCPCS: 80053; 82550; 82948; 82962; 85025; 99291; C9113; G0480; J1644; J2060; J7030

== ENCOUNTER 2021-12-06 05:33 | Inpatient (IN) | payer MEDICAID ==
[~2021-12-06] VITALS: Ht 167.6 cm; Wt 71.5 kg
[~2021-12-06 05:33] MED LIST changes: +AMLO5TAB66 PO; +ATOR40TA71 PO; +HYDR25TA PO; +LISI40TA9 PO; +QUET400T13 PO; -SIMV-260 PO
[2021-12-06] MEDS ORDERED: SODIUM CHLORIDE 0.9% 2,500 ML IV ONE (05:45)
[2021-12-06] MEDS ORDERED: 0.9% SODIUM CHLORIDE 10 ML SYRINGE IVP PRN (05:45)
[2021-12-06 06:15] LABS: BASOPHILS % (AUTO) 0.5 % (0.0-2.0); EOSINOPHILS % (AUTO) 1.8 % (1.0-6.0); HEMATOCRIT 22.9 % (41-53); HEMOGLOBIN 7.7 g/dL (13.5-17.5); LYMPHOCYTES # (AUTO) 1.2 K/uL (1.0-4.8); LYMPHOCYTES % (AUTO) 15.2 % (22.0-44.0); MEAN CORPUSCULAR HEMOGLOBIN 28.9 pg (26.0-34.0); MEAN CORPUSCULAR HGB CONC 33.7 G/dL (31.0-37.0); MEAN CORPUSCULAR VOLUME 86 fL (80-100); MONOCYTES # (AUTO) 0.7 K/uL (0.1-1.0); MONOCYTES % (AUTO) 8.1 % (2.0-9.0); NEUTROPHILS % (AUTO) 74.4 % (40.0-70.0); PLATELET COUNT (AUTO) 215 K/uL (150-450); RED BLOOD CELL COUNT(AUTO) 2.67 MIL/uL (4.50-5.90); RED CELL DISTRIBUTION WIDTH 14.3 % (11.5-14.5)
[2021-12-06] MEDS ORDERED: SODIUM CHLORIDE 0.9% 1,000 ML IV ONE ×2 (06:15→07:15)
[2021-12-06 06:23] LABS: PROTHROMBIN TIME 10.7 SEC (9.4-11.6)
[2021-12-06 06:24] LABS: ANION GAP 11 mmol/L (8-16); CALCIUM, TOTAL 8.6 mg/dL (8.8-10.5); CARBON DIOXIDE 22 mmol/L (22-29); CHLORIDE 102 mmol/L (98-107); CREATININE 2.03 mg/dL (0.60-1.30); GLOMERULAR FILTR. RATE CALC 34 mL/min (>60); GLUCOSE,RANDOM 312 mg/dL (70-110); POTASSIUM 3.5 mmol/L (3.5-5.1); SODIUM SERUM 135 mmol/L (136-145); UREA NITROGEN, BLOOD 34 mg/dL (7-18)
[2021-12-06 06:44] LABS: B-TYPE NATRIURETIC PEPTIDE < 5 pg/mL (0-100)
[2021-12-06] MEDS ORDERED: SODIUM CHLORIDE 0.9% 2,200 ML IV ONE (06:45)
[2021-12-06 06:48] LABS: LACTIC ACID 2.1 mmol/L (0.4-2.0)
[2021-12-06 06:49] LABS: ALANINE AMINOTRANSFERASE 21 U/L (12-78); ALBUMIN 3.1 g/dL (3.4-5.0); ALKALINE PHOSPHATASE 106 U/L (46-116); ASPARTATE AMINOTRANSFERASE 26 U/L (15-37); BILIRUBIN,TOTAL 0.3 mg/dL (0.1-1.0); CREATINE KINASE, TOTAL ONLY 731 U/L (39-308); TOTAL PROTEIN, SERUM 6.5 g/dL (6.4-8.2)
[2021-12-06] MEDS ORDERED: INSULIN REGULAR, HUMAN 100 UNITS/ML IVP ONE (07:15)
[2021-12-06 07:54] LABS: AMPHET/METH SCREEN,URINE POSITIVE (NEGATIVE); BARBITURATE SCREEN, URINE NEGATIVE (NEGATIVE); BENZODIAZEPINES SCREEN,URINE NEGATIVE (NEGATIVE); CANNABINOID SCREEN,URINE NEGATIVE (NEGATIVE); COCAINE SCREEN,URINE NEGATIVE (NEGATIVE); METHADONE SCREEN, URINE POSITIVE (NEGATIVE); OPIATE SCREEN,URINE NEGATIVE (NEGATIVE)
[2021-12-06 07:55] LABS: PHENCYCLIDINE SCREEN,URINE NEGATIVE (NEGATIVE)
[2021-12-06 08:03] LABS: APPEARANCE,URINE CLEAR (CLEAR); BILIRUBIN,URINE NEGATIVE (NEGATIVE); GLUCOSE, URINE (UA) 500 mg/dL (NEGATIVE); KETONES,URINE NEGATIVE (NEGATIVE); LEUKOCYTE ESTERASE ,URINE NEGATIVE (NEGATIVE); NITRATE,URINE NEGATIVE (NEGATIVE); OCCULT BLOOD,URINE NEGATIVE (NEGATIVE); PH,URINE 6.5 (5.0-8.0); PROTEIN,URINE NEGATIVE (NEGATIVE); UROBILINOGEN,URINE 0.2 mg/dL (<=1.0)
[2021-12-06 08:08] LABS: BACTERIA,URINE None Seen /HPF (None Seen); RBC,URINE None Seen /HPF (0-2); SQUAMOUS EPITHELIAL CELL,UR Few /LPF (None Seen)
[2021-12-06 08:11] LABS: GLUCOSE,POINT OF CARE 290 MG/DL (70-110)
[2021-12-06] MEDS ORDERED: MIDODRINE HCL 2.5 MG TABLET PO ONE (09:15)
[2021-12-06] MEDS ORDERED: ONDANSETRON HCL 4 MG/2 ML VIAL IVP PRN (10:15)
[2021-12-06] MEDS ORDERED: DEXTROSE 50%-WATER 25 GM/50 ML SYRINGE IVP PRN (10:15)
[2021-12-06 10:16] LABS: GLUCOSE,POINT OF CARE 217 MG/DL (70-110)
[2021-12-06] MEDS: SODIUM CHLORIDE 0.9% 1,000 ML IV SCH ×2 (10:18→20:53)
[2021-12-06 11:12] LABS: COVID AG,FIA SOURCE NASAL SWAB
[2021-12-06 11:40] LABS: INFLUENZA TYPE A NEGATIVE FOR TYPE A (NEGATIVE); INFLUENZA TYPE B NEGATIVE FOR TYPE B (NEGATIVE)
[2021-12-06 12:09] VITALS: BP 99/49
[2021-12-06] MEDS: INSULIN LISPRO 100 UNITS/ML SQ PRN ×3 (12:29→20:55)
[2021-12-06 13:01] LABS: GLUCOMETER DEV NAME(LOC) 5N.3; GLUCOSE,POINT OF CARE 221 MG/DL (70-110)
[2021-12-06] MEDS: ACETAMINOPHEN 325 MG TABLET PO PRN (13:42)
[2021-12-06] MEDS ORDERED: INFLUENZA VIRUS VACCINE QVS 2021-22 (6MO+)/PF 60 MCG/0.5 ML SYRINGE IM. ONE (14:15)
[2021-12-06] MEDS ORDERED: PNEUMOCOCCAL VACCINE POLYVALENT 0.5 ML VIAL [PPSV23] IM. ONE (14:15)
[2021-12-06 15:22] VITALS: BP 98/56
[2021-12-06] MEDS: METHADONE HCL 10 MG TABLET PO SCH (16:37)
[2021-12-06] MEDS: HEPARIN SODIUM,PORCINE 5,000 UNITS/ML VIAL SQ SCH (16:38)
[2021-12-06 18:56] LABS: GLUCOMETER DEV NAME(LOC) 5S.1B; GLUCOSE,POINT OF CARE 191 MG/DL (70-110)
[2021-12-06 20:21] VITALS: BP 96/55
[2021-12-06] MEDS: MIDODRINE HCL 5 MG TABLET PO SCH (20:53)
[2021-12-06] MEDS: DOCUSATE SODIUM 100 MG CAPSULE PO SCH (20:53)
[2021-12-06] MEDS: NICOTINE 21 MG/24 HOUR PATCH TD ONE ×2 (20:54→21:00)
[2021-12-06 23:56] LABS: GLUCOMETER DEV NAME(LOC) 5N.1C; GLUCOSE,POINT OF CARE 149 MG/DL (70-110)
[2021-12-07 02:50] VITALS: BP 129/78
[2021-12-07] MEDS: ACETAMINOPHEN 325 MG TABLET PO PRN (03:13)
[2021-12-07] MEDS: SODIUM CHLORIDE 0.9% 1,000 ML IV SCH ×2 (03:15→11:17)
[2021-12-07] MEDS: INSULIN LISPRO 100 UNITS/ML SQ PRN ×2 (05:59→11:27)
[2021-12-07 07:09] VITALS: BP 106/68
[2021-12-07 07:17] LABS: GLUCOMETER DEV NAME(LOC) 5S.1B; GLUCOSE,POINT OF CARE 218 MG/DL (70-110)
[2021-12-07 07:35] LABS: BASOPHILS % (AUTO) 0.5 % (0.0-2.0); EOSINOPHILS % (AUTO) 3.7 % (1.0-6.0); HEMATOCRIT 26.6 % (41-53); HEMOGLOBIN 9.2 g/dL (13.5-17.5); LYMPHOCYTES # (AUTO) 1.3 K/uL (1.0-4.8); LYMPHOCYTES % (AUTO) 16.7 % (22.0-44.0); MEAN CORPUSCULAR HEMOGLOBIN 29.2 pg (26.0-34.0); MEAN CORPUSCULAR HGB CONC 34.5 G/dL (31.0-37.0); MEAN CORPUSCULAR VOLUME 85 fL (80-100); MONOCYTES # (AUTO) 0.4 K/uL (0.1-1.0); MONOCYTES % (AUTO) 4.9 % (2.0-9.0); NEUTROPHILS # (AUTO) 5.7 K/uL (1.8-7.7); NEUTROPHILS % (AUTO) 74.2 % (40.0-70.0); PLATELET COUNT (AUTO) 239 K/uL (150-450); RED BLOOD CELL COUNT(AUTO) 3.13 MIL/uL (4.50-5.90); RED CELL DISTRIBUTION WIDTH 14.9 % (11.5-14.5)
[2021-12-07 07:38] LABS: ANION GAP 7 mmol/L (8-16); CALCIUM, TOTAL 8.2 mg/dL (8.8-10.5); CARBON DIOXIDE 23 mmol/L (22-29); CHLORIDE 107 mmol/L (98-107); CREATININE 0.74 mg/dL (0.60-1.30); GLOMERULAR FILTR. RATE CALC > 60 mL/min (>60); GLUCOSE,RANDOM 197 mg/dL (70-110); POTASSIUM 3.9 mmol/L (3.5-5.1); SODIUM SERUM 137 mmol/L (136-145); UREA NITROGEN, BLOOD 14 mg/dL (7-18)
[2021-12-07] MEDS: HEPARIN SODIUM,PORCINE 5,000 UNITS/ML VIAL SQ SCH ×3 (08:07→15:56)
[2021-12-07] MEDS: FAMOTIDINE 20 MG TABLET PO SCH (08:07)
[2021-12-07] MEDS: MIDODRINE HCL 5 MG TABLET PO SCH (08:07)
[2021-12-07] MEDS: NICOTINE 21 MG/24 HOUR PATCH TD SCH (08:08)
[2021-12-07] MEDS: METHADONE HCL 10 MG TABLET PO SCH (08:10)
[2021-12-07] MEDS: DOCUSATE SODIUM 100 MG CAPSULE PO SCH ×2 (08:10→21:00)
[2021-12-07 11:21] LABS: CREATINE KINASE, TOTAL ONLY 335 U/L (39-308)
[2021-12-07] MEDS ORDERED: MAGNESIUM HYDROXIDE SUSPENSION 30 ML UDCUP PO PRN (12:45)
[2021-12-07] MEDS: TraMADol HCL 50 MG TABLET PO PRN ×2 (14:26→23:15)
[2021-12-07 15:02] VITALS: BP 102/78
[2021-12-07 18:06] LABS: GLUCOMETER DEV NAME(LOC) 5S.1B; GLUCOSE,POINT OF CARE 129 MG/DL (70-110)
[2021-12-07 20:16] LABS: GLUCOMETER DEV NAME(LOC) 5N.3; GLUCOSE,POINT OF CARE 152 MG/DL (70-110)
[2021-12-07 20:27] VITALS: BP 110/61
[2021-12-07] MEDS: MELATONIN 3 MG TABLET PO PRN (23:20)
[2021-12-08] MEDS: SODIUM CHLORIDE 0.9% 1,000 ML IV SCH ×3 (02:15→18:01)
[2021-12-08] MEDS: HEPARIN SODIUM,PORCINE 5,000 UNITS/ML VIAL SQ SCH ×3 (02:25→16:33)
[2021-12-08] MEDS: ACETAMINOPHEN 325 MG TABLET PO PRN ×3 (04:23→18:01)
[2021-12-08 04:30] VITALS: BP 120/74
[2021-12-08] MEDS: INSULIN LISPRO 100 UNITS/ML SQ PRN ×4 (06:38→20:33)
[2021-12-08 07:28] VITALS: BP 119/70
[2021-12-08 07:46] LABS: GLUCOMETER DEV NAME(LOC) 6N.2; GLUCOSE,POINT OF CARE 180 MG/DL (70-110)
[2021-12-08] MEDS: DICYCLOMINE HCL 10 MG CAPSULE PO PRN ×2 (07:55→18:01)
[2021-12-08] MEDS: NICOTINE 21 MG/24 HOUR PATCH TD SCH (08:01)
[2021-12-08] MEDS: FAMOTIDINE 20 MG TABLET PO SCH (08:01)
[2021-12-08] MEDS: MIDODRINE HCL 5 MG TABLET PO SCH (08:02)
[2021-12-08] MEDS: METHADONE HCL 10 MG TABLET PO SCH (08:03)
[2021-12-08] MEDS: DOCUSATE SODIUM 100 MG CAPSULE PO SCH ×2 (08:04→21:00)
[2021-12-08] MEDS: TraMADol HCL 50 MG TABLET PO PRN ×2 (08:16→16:33)
[2021-12-08 15:53] VITALS: BP 102/60
[2021-12-08 16:36] LABS: GLUCOMETER DEV NAME(LOC) 6N.1; GLUCOSE,POINT OF CARE 160 MG/DL (70-110)
[2021-12-08 17:51] LABS: GLUCOMETER DEV NAME(LOC) 6N.2; GLUCOSE,POINT OF CARE 152 MG/DL (70-110)
[2021-12-08 19:39] VITALS: BP 125/76
[2021-12-08 20:51] LABS: GLUCOMETER DEV NAME(LOC) 4E.2; GLUCOSE,POINT OF CARE 148 MG/DL (70-110)
[2021-12-08] MEDS ORDERED: MORPHINE SULFATE 2 MG/ML SYRINGE IVP ONE (23:45)
[2021-12-09] MEDS: HEPARIN SODIUM,PORCINE 5,000 UNITS/ML VIAL SQ SCH ×2 (00:18→08:11)
[2021-12-09] MEDS: MELATONIN 3 MG TABLET PO PRN (00:45)
[2021-12-09] MEDS: SODIUM CHLORIDE 0.9% 1,000 ML IV SCH ×2 (02:28→08:13)
[2021-12-09 04:17] VITALS: BP 133/60
[2021-12-09] MEDS: TraMADol HCL 50 MG TABLET PO PRN (04:24)
[2021-12-09] MEDS: DICYCLOMINE HCL 10 MG CAPSULE PO PRN (05:48)
[2021-12-09] MEDS: FAMOTIDINE 20 MG TABLET PO SCH (08:11)
[2021-12-09] MEDS: MIDODRINE HCL 5 MG TABLET PO SCH (08:11)
[2021-12-09] MEDS: METHADONE HCL 10 MG TABLET PO SCH (08:11)
[2021-12-09] MEDS: DOCUSATE SODIUM 100 MG CAPSULE PO SCH (08:11)
[2021-12-09] MEDS: NICOTINE 21 MG/24 HOUR PATCH TD SCH (08:12)
[2021-12-09 08:28] VITALS: BP 137/79
[2021-12-09 19:26] LABS: GLUCOMETER DEV NAME(LOC) 4E.2; GLUCOSE,POINT OF CARE 133 MG/DL (70-110)
== END 2021-12-09 11:26 | disposition left against medical advice (07) | DRG 207 ==
LOC: EMS 05:33 → 5S 10:32 → 6N 12-07 17:55
PROVIDERS: ADMIT Internal Medicine; ATTEND Internal Medicine
PROC: 0QSNXZZ Reposition Right Metatarsal, External Approach (ICD-10-PCS; principal; 2021-12-08)
DX: I95.9 Hypotension, unspecified (principal); N17.9 Acute kidney failure, unspecified; M62.82 Rhabdomyolysis; D64.9 Anemia, unspecified; E11.65 Type 2 diabetes mellitus with hyperglycemia; E78.5 Hyperlipidemia, unspecified; F17.210 Nicotine dependence, cigarettes, uncomplicated; S92.334A Nondisplaced fracture of third metatarsal bone, right foot, initial encounter for closed fracture; Z20.822 Contact with and (suspected) exposure to COVID-19; S92.314A Nondisplaced fracture of first metatarsal bone, right foot, initial encounter for closed fracture; S92.354A Nondisplaced fracture of fifth metatarsal bone, right foot, initial encounter for closed fracture; S92.234A Nondisplaced fracture of intermediate cuneiform of right foot, initial encounter for closed fracture; S92.344A Nondisplaced fracture of fourth metatarsal bone, right foot, initial encounter for closed fracture; Z53.29 Procedure and treatment not carried out because of patient's decision for other reasons; I10 Essential (primary) hypertension; F19.10 Other psychoactive substance abuse, uncomplicated; W18.39XA Other fall on same level, initial encounter; Y93.89 Activity, other specified; Z83.3 Family history of diabetes mellitus; Z82.49 Family history of ischemic heart disease and other diseases of the circulatory system; Z90.49 Acquired absence of other specified parts of digestive tract; Y92.89 Other specified places as the place of occurrence of the external cause; Y99.8 Other external cause status
CPT/HCPCS: 71045; 73700; 80048; 80053; 81001; 82550; 82962; 83605; 83880; 84145; 84484; 85025; 85610; 85730; 87040; 87804; 93005; 93306; 97162; 99285; J1644; J1815; J2270; J7030; 36415-L1; 36415-TC

== ENCOUNTER 2021-12-20 18:29 | Inpatient (IN) | payer MEDICAID ==
[~2021-12-20] VITALS: Ht 157.5 cm; Wt 63.2 kg
[2021-12-20] MEDS ORDERED: INSULIN REGULAR, HUMAN 100 UNITS/ML IVP ONE ×2 (19:45→21:00)
[2021-12-20] MEDS ORDERED: VANCOMYCIN HCL 1 GM/D5% WATER 200 ML IV ONE (19:45)
[2021-12-20] MEDS ORDERED: SODIUM CHLORIDE 0.9% 1,000 ML IV ONE ×2 (19:45→21:15)
[2021-12-20 20:07] LABS: HEMATOCRIT 28.3 % (41-53); HEMOGLOBIN 9.1 g/dL (13.5-17.5); MEAN CORPUSCULAR HEMOGLOBIN 28.1 pg (26.0-34.0); MEAN CORPUSCULAR HGB CONC 32.1 G/dL (31.0-37.0); MEAN CORPUSCULAR VOLUME 88 fL (80-100); PLATELET COUNT (AUTO) 247 K/uL (150-450); RED BLOOD CELL COUNT(AUTO) 3.23 MIL/uL (4.50-5.90); RED CELL DISTRIBUTION WIDTH 15.9 % (11.5-14.5)
[2021-12-20 20:21] LABS: BAND NEUTROPHILS % (MANUAL) 17 % (0-5); LYMPHOCYTES % (MANUAL) 2 % (22-44); MONOCYTES % (MANUAL) 4 % (2-9); SEGMENTED NEUTROPHILS % 77 % (40-70)
[2021-12-20 20:29] LABS: ALANINE AMINOTRANSFERASE 27 U/L (12-78); ALBUMIN 2.6 g/dL (3.4-5.0); ALKALINE PHOSPHATASE 136 U/L (46-116); ANION GAP 14 mmol/L (8-16); ASPARTATE AMINOTRANSFERASE 11 U/L (15-37); BILIRUBIN,TOTAL 0.2 mg/dL (0.1-1.0); CALCIUM, TOTAL 8.3 mg/dL (8.8-10.5); CARBON DIOXIDE 22 mmol/L (22-29); CHLORIDE 88 mmol/L (98-107); CREATININE 2.96 mg/dL (0.60-1.30); GLOMERULAR FILTR. RATE CALC 22 mL/min (>60); TOTAL PROTEIN, SERUM 7.5 g/dL (6.4-8.2); UREA NITROGEN, BLOOD 51 mg/dL (7-18)
[2021-12-20] MEDS ORDERED: ACETAMINOPHEN 500 MG TABLET PO ONE (20:30)
[2021-12-20 20:54] LABS: SODIUM SERUM 124 mmol/L (136-145)
[2021-12-20 20:55] LABS: GLUCOSE,RANDOM 746 mg/dL (70-110); LACTIC ACID 3.4 mmol/L (0.4-2.0)
[2021-12-20 21:00] LABS: COVID AG,FIA SOURCE NASOPHARYNGEAL
[2021-12-20] MEDS ORDERED: POTASSIUM CHL 20 MEQ/0.9% NS 1,000 ML IV ONE (21:00)
[2021-12-20] MEDS ORDERED: ACETAMINOPHEN 325 MG TABLET PO PRN (21:15)
[2021-12-20] MEDS ORDERED: HYDROCODONE/ACETAMINOPHEN 5-325 MG TABLET PO PRN (21:15)
[2021-12-20] MEDS ORDERED: INSULIN LISPRO 100 UNITS/ML SQ PRN (21:15)
[2021-12-20] MEDS ORDERED: MORPHINE SULFATE 2 MG/ML SYRINGE IVP PRN (21:15)
[2021-12-20] MEDS ORDERED: ONDANSETRON HCL 4 MG/2 ML VIAL IVP PRN (21:15)
[2021-12-20] MEDS ORDERED: DEXTROSE 50%-WATER 25 GM/50 ML SYRINGE IVP PRN ×2 (21:15→21:45)
[2021-12-20 21:37] LABS: ABG BASE EXCESS -3.9 mmol/L (-2.0-3.0); ABG CARBOXYHEMOGLOBIN 0.9 % (0.0-1.5); ABG HCO3 21.6 mmol/L (22.0-26.0); ABG METHEMOGLOBIN 0.2 % (0.0-1.5); ABG OXYGEN CONTENT 12.9 mL/dL (15.0-23.0); ABG OXYGEN SATURATION 96.5 % (95.0-98.0); ABG OXYHEMOGLOBIN 95.4 % (94.0-100.0); ABG PCO2 36 mmHg (35-45); ABG PH 7.386 (7.35-7.450); ABG TOTAL HEMOGLOBIN 9.5 G/dL (12.0-18.0); O2 DEVICE,BLOOD GAS ROOM AIR (ROOM AIR); PO2, ARTERIAL BG 91.3 mmHg (84.0-92.0); SITE, BLOOD GAS RT RADIAL; SOURCE, BLOOD GAS ARTERIAL; TEMPERATURE, FAHRENHEIT, BG 98.6 FAHREN (96.0-98.6)
[2021-12-20] MEDS: INSULIN GLARGINE,HUM.REC.ANLOG 100 UNITS/ML SQ SCH (21:45)
[2021-12-20 22:26] LABS: GLUCOSE,POINT OF CARE 189 MG/DL (70-110)
[2021-12-20] MEDS ORDERED: RINGERS SOLUTION,LACTATED 1,000 ML IV ONE (22:30)
[2021-12-20] MEDS ORDERED: PIPERACILLIN SODIUM/TAZOBACTAM 2.25 GM in DEXTROSE 5%-WATER 50 ML IV ONE (22:45)
[2021-12-20] MEDS ORDERED: VANCOMYCIN HCL 500 MG in DEXTROSE 5%-WATER 100 ML IV ONE (23:00)
[2021-12-20] MEDS ORDERED: VANCOMYCIN HCL 1 GM/D5% WATER 200 ML IV PRN (23:15)
[2021-12-20 23:45] LABS: % IRON SATURATION 5.3 % (30-44)
[2021-12-21] MEDS ORDERED: CLINDAMYCIN 600 MG/D5% WATER 50 ML IV ONE
[2021-12-21 01:28] LABS: CALCIUM, TOTAL 7.9 mg/dL (8.8-10.5); CREATININE 2.09 mg/dL (0.60-1.30); POTASSIUM 3.1 mmol/L (3.5-5.1)
[2021-12-21] MEDS: MORPHINE SULFATE 2 MG/ML SYRINGE IVP PRN ×4 (01:44→23:03)
[2021-12-21 02:51] LABS: CREATININE,URINE RANDOM 21.4 mg/dL (30.0-125.0)
[2021-12-21 02:55] LABS: AMPHET/METH SCREEN,URINE POSITIVE (NEGATIVE); BARBITURATE SCREEN, URINE NEGATIVE (NEGATIVE); BENZODIAZEPINES SCREEN,URINE NEGATIVE (NEGATIVE); CANNABINOID SCREEN,URINE NEGATIVE (NEGATIVE); COCAINE SCREEN,URINE NEGATIVE (NEGATIVE); METHADONE SCREEN, URINE POSITIVE (NEGATIVE); OPIATE SCREEN,URINE NEGATIVE (NEGATIVE)
[2021-12-21 02:56] LABS: PHENCYCLIDINE SCREEN,URINE NEGATIVE (NEGATIVE)
[2021-12-21 04:00] VITALS: BP 107/59
[2021-12-21] MEDS: PIPERACILLIN SODIUM/TAZOBACTAM 2.25 GM in DEXTROSE 5%-WATER 50 ML IV SCH ×4 (04:57→20:01)
[2021-12-21] MEDS: RINGERS SOLUTION,LACTATED 1,000 ML IV SCH ×3 (05:44→13:45)
[2021-12-21] MEDS: HEPARIN SODIUM,PORCINE 5,000 UNITS/ML VIAL SQ SCH ×3 (08:09→16:03)
[2021-12-21 09:00] VITALS: BP 112/62
[2021-12-21] MEDS: POTASSIUM CHL 10 MEQ/WATER 50 ML IV SCH ×6 (09:22→17:45)
[2021-12-21] MEDS ORDERED: VANCOMYCIN HCL 500 MG in DEXTROSE 5%-WATER 100 ML IV ONE (11:00)
[2021-12-21 11:53] LABS: GLUCOMETER DEV NAME(LOC) 5N.3; GLUCOSE,POINT OF CARE 237 MG/DL (70-110)
[2021-12-21] MEDS: ACETAMINOPHEN 325 MG TABLET PO PRN ×2 (11:57→16:49)
[2021-12-21] MEDS: INSULIN LISPRO 100 UNITS/ML SQ PRN ×3 (12:10→20:00)
[2021-12-21 12:22] LABS: GLUCOMETER DEV NAME(LOC) 5S.1B; GLUCOSE,POINT OF CARE 270 MG/DL (70-110)
[2021-12-21] MEDS ORDERED: SODIUM CHLORIDE 0.9% 1,000 ML IV ONE (13:45)
[2021-12-21 13:48] LABS: CALCIUM, TOTAL 8.4 mg/dL (8.8-10.5); CREATININE 1.69 mg/dL (0.60-1.30); MAGNESIUM 2.1 mg/dL (1.80-2.40)
[2021-12-21 13:50] LABS: POTASSIUM 2.8 mmol/L (3.5-5.1)
[2021-12-21 13:54] VITALS: BP 111/64
[2021-12-21 14:47] VITALS: BP 111/66
[2021-12-21] MEDS ORDERED: POTASSIUM CHLORIDE 20 MEQ ER TABLET PO ONE (16:45)
[2021-12-21] MEDS: INSULIN GLARGINE,HUM.REC.ANLOG 100 UNITS/ML SQ SCH (20:01)
[2021-12-21 20:07] LABS: GLUCOMETER DEV NAME(LOC) 5N.1C; GLUCOSE,POINT OF CARE 292 MG/DL (70-110)
[2021-12-21 20:07] LABS: GLUCOMETER DEV NAME(LOC) 5N.1C; GLUCOSE,POINT OF CARE 275 MG/DL (70-110)
[2021-12-21 20:59] VITALS: BP 120/57
[2021-12-21 23:47] VITALS: BP 114/68
[2021-12-22] MEDS: ACETAMINOPHEN 325 MG TABLET PO PRN ×3 (00:49→16:43)
[2021-12-22] MEDS: HEPARIN SODIUM,PORCINE 5,000 UNITS/ML VIAL SQ SCH ×3 (00:49→16:29)
[2021-12-22 03:15] VITALS: BP 111/64
[2021-12-22] MEDS: MORPHINE SULFATE 2 MG/ML SYRINGE IVP PRN ×4 (05:55→20:32)
[2021-12-22] MEDS: INSULIN LISPRO 100 UNITS/ML SQ PRN ×2 (05:57→20:31)
[2021-12-22] MEDS: RINGERS SOLUTION,LACTATED 1,000 ML IV SCH ×3 (05:59→20:33)
[2021-12-22] MEDS: PIPERACILLIN SODIUM/TAZOBACTAM 2.25 GM in DEXTROSE 5%-WATER 50 ML IV SCH ×4 (05:59→20:33)
[2021-12-22 07:29] LABS: ANION GAP 7 mmol/L (8-16); CALCIUM, TOTAL 8.6 mg/dL (8.8-10.5); CARBON DIOXIDE 30 mmol/L (22-29); CHLORIDE 95 mmol/L (98-107); CREATININE 1.19 mg/dL (0.60-1.30); GLOMERULAR FILTR. RATE CALC > 60 mL/min (>60); GLUCOSE,RANDOM 193 mg/dL (70-110); PHOSPHORUS 2.6 mg/dL (2.5-4.9); SODIUM SERUM 132 mmol/L (136-145); UREA NITROGEN, BLOOD 26 mg/dL (7-18)
[2021-12-22 07:50] VITALS: BP 137/68
[2021-12-22 07:51] LABS: POTASSIUM 2.7 mmol/L (3.5-5.1)
[2021-12-22] MEDS ORDERED: POTASSIUM CHLORIDE 20 MEQ ER TABLET PO ONE (08:00)
[2021-12-22] MEDS: VANCOMYCIN HCL 1 GM/D5% WATER 200 ML IV SCH ×2 (08:16→13:52)
[2021-12-22] MEDS: DOCUSATE SODIUM 100 MG CAPSULE PO SCH ×3 (08:18→20:33)
[2021-12-22] MEDS: POTASSIUM CHL 10 MEQ/WATER 50 ML IV SCH ×3 (08:26→10:00)
[2021-12-22 08:31] LABS: GLUCOMETER DEV NAME(LOC) 5N.1C; GLUCOSE,POINT OF CARE 184 MG/DL (70-110)
[2021-12-22 11:50] VITALS: BP 122/78
[2021-12-22] MEDS: METHADONE HCL 10 MG TABLET PO SCH (13:49)
[2021-12-22 15:27] VITALS: BP 138/71
[2021-12-22] MEDS: ONDANSETRON HCL 4 MG/2 ML VIAL IVP PRN (16:43)
[2021-12-22 17:19] LABS: ANION GAP 8 mmol/L (8-16); CARBON DIOXIDE 26 mmol/L (22-29); CHLORIDE 93 mmol/L (98-107); CREATININE 1.08 mg/dL (0.60-1.30); GLOMERULAR FILTR. RATE CALC > 60 mL/min (>60); GLUCOSE,RANDOM 318 mg/dL (70-110); POTASSIUM 3.9 mmol/L (3.5-5.1); SODIUM SERUM 127 mmol/L (136-145); UREA NITROGEN, BLOOD 27 mg/dL (7-18)
[2021-12-22] MEDS: INSULIN GLARGINE,HUM.REC.ANLOG 100 UNITS/ML SQ SCH (20:31)
[2021-12-22 20:36] LABS: GLUCOMETER DEV NAME(LOC) 5N.3; GLUCOSE,POINT OF CARE 273 MG/DL (70-110)
[2021-12-22 21:55] VITALS: BP 134/73
[2021-12-22] MEDS: MAGNESIUM HYDROXIDE SUSPENSION 30 ML UDCUP PO PRN (23:33)
[2021-12-22] MEDS: ZOLPIDEM TARTRATE 5 MG TABLET PO PRN (23:33)
[2021-12-23 01:00] VITALS: BP 101/65
[2021-12-23] MEDS: HEPARIN SODIUM,PORCINE 5,000 UNITS/ML VIAL SQ SCH ×4 (01:34→23:18)
[2021-12-23] MEDS: MORPHINE SULFATE 2 MG/ML SYRINGE IVP PRN ×4 (01:39→23:15)
[2021-12-23] MEDS: ACETAMINOPHEN 325 MG TABLET PO PRN ×3 (03:06→20:41)
[2021-12-23] MEDS: PIPERACILLIN SODIUM/TAZOBACTAM 2.25 GM in DEXTROSE 5%-WATER 50 ML IV SCH (03:07)
[2021-12-23] MEDS: INSULIN LISPRO 100 UNITS/ML SQ PRN ×3 (06:17→20:42)
[2021-12-23 06:18] LABS: ANION GAP 5 mmol/L (8-16); CALCIUM, TOTAL 8.5 mg/dL (8.8-10.5); CARBON DIOXIDE 29 mmol/L (22-29); CHLORIDE 96 mmol/L (98-107); GLOMERULAR FILTR. RATE CALC > 60 mL/min (>60); GLUCOSE,RANDOM 171 mg/dL (70-110); POTASSIUM 3.7 mmol/L (3.5-5.1); SODIUM SERUM 130 mmol/L (136-145); UREA NITROGEN, BLOOD 24 mg/dL (7-18); VANCOMYCIN,RANDOM 8.1 mcg/mL (25.0-50.0)
[2021-12-23 06:26] LABS: GLUCOMETER DEV NAME(LOC) 5N.1C; GLUCOSE,POINT OF CARE 162 MG/DL (70-110)
[2021-12-23] MEDS: DOCUSATE SODIUM 100 MG CAPSULE PO SCH ×3 (09:24→20:40)
[2021-12-23] MEDS: VANCOMYCIN HCL 1 GM/D5% WATER 200 ML IV SCH ×2 (09:24→20:40)
[2021-12-23] MEDS: METHADONE HCL 10 MG TABLET PO SCH (09:25)
[2021-12-23] MEDS: RINGERS SOLUTION,LACTATED 1,000 ML IV SCH (09:35)
[2021-12-23 10:24] VITALS: BP 128/74
[2021-12-23] MEDS: PIPERACILLIN/TAZO 3.375 GM/D5W 50 ML IV SCH ×3 (10:49→21:29)
[2021-12-23 11:19] LABS: BASOPHILS % (AUTO) 0.7 % (0.0-2.0); EOSINOPHILS % (AUTO) 0.5 % (1.0-6.0); HEMATOCRIT 26.7 % (41-53); HEMOGLOBIN 8.8 g/dL (13.5-17.5); LYMPHOCYTES % (AUTO) 5.4 % (22.0-44.0); MEAN CORPUSCULAR HEMOGLOBIN 27.7 pg (26.0-34.0); MEAN CORPUSCULAR HGB CONC 32.8 G/dL (31.0-37.0); MEAN CORPUSCULAR VOLUME 84 fL (80-100); MONOCYTES # (AUTO) 1.1 K/uL (0.1-1.0); MONOCYTES % (AUTO) 5.7 % (2.0-9.0); NEUTROPHILS # (AUTO) 16.4 K/uL (1.8-7.7); PLATELET COUNT (AUTO) 316 K/uL (150-450); RED BLOOD CELL COUNT(AUTO) 3.17 MIL/uL (4.50-5.90); RED CELL DISTRIBUTION WIDTH 16.1 % (11.5-14.5)
[2021-12-23 11:21] LABS: NEUTROPHILS % (AUTO) 87.7 % (40.0-70.0)
[2021-12-23 13:00] VITALS: BP 122/62
[2021-12-23] MEDS: MAGNESIUM HYDROXIDE SUSPENSION 30 ML UDCUP PO PRN (14:46)
[2021-12-23 16:19] VITALS: BP 132/71
[2021-12-23 18:12] LABS: GLUCOMETER DEV NAME(LOC) 5N.3; GLUCOSE,POINT OF CARE 228 MG/DL (70-110)
[2021-12-23] MEDS ORDERED: SODIUM CHLORIDE 0.9% 100 ML ONE (18:46)
[2021-12-23 20:00] VITALS: BP 126/81
[2021-12-23 20:11] LABS: GLUCOMETER DEV NAME(LOC) 5N.1C; GLUCOSE,POINT OF CARE 140 MG/DL (70-110)
[2021-12-23] MEDS: ZOLPIDEM TARTRATE 5 MG TABLET PO PRN (20:43)
[2021-12-23] MEDS: INSULIN GLARGINE,HUM.REC.ANLOG 100 UNITS/ML SQ SCH (20:43)
[2021-12-23] MEDS ORDERED: SODIUM CHLORIDE 0.9% 1,000 ML ONE (20:56)
[2021-12-23 23:50] VITALS: BP 136/80
[2021-12-24 00:29] LABS: APPEARANCE,URINE CLEAR (CLEAR); BILIRUBIN,URINE NEGATIVE (NEGATIVE); GLUCOSE, URINE (UA) 300-500 mg/dL (NEGATIVE); KETONES,URINE NEGATIVE (NEGATIVE); LEUKOCYTE ESTERASE ,URINE NEGATIVE (NEGATIVE); NITRATE,URINE NEGATIVE (NEGATIVE); OCCULT BLOOD,URINE NEGATIVE (NEGATIVE); PH,URINE 7.5 (5.0-8.0); PROTEIN,URINE 30-70 mg/dL (NEGATIVE); SPECIFIC GRAVITIY, URINE 1.032 (1.003-1.030); UROBILINOGEN,URINE <=1.0 mg/dL (<=1.0)
[2021-12-24 00:33] LABS: CREATININE,URINE RANDOM 92.7 mg/dL (30.0-125.0)
[2021-12-24 00:43] LABS: BACTERIA,URINE None Seen /HPF (None Seen); RBC,URINE 0-2 /HPF (0-2); WBC,URINE None Seen /HPF (0-5)
[2021-12-24] MEDS: MORPHINE SULFATE 2 MG/ML SYRINGE IVP PRN ×5 (03:21→23:52)
[2021-12-24] MEDS: PIPERACILLIN/TAZO 3.375 GM/D5W 50 ML IV SCH ×4 (03:22→20:37)
[2021-12-24 04:35] VITALS: BP 132/73
[2021-12-24] MEDS: ACETAMINOPHEN 325 MG TABLET PO PRN ×4 (05:26→20:34)
[2021-12-24 07:37] VITALS: BP 110/65
[2021-12-24] MEDS: METHADONE HCL 10 MG TABLET PO SCH (08:44)
[2021-12-24] MEDS: DOCUSATE SODIUM 100 MG CAPSULE PO SCH ×3 (08:44→20:34)
[2021-12-24] MEDS: VANCOMYCIN HCL 1 GM/D5% WATER 200 ML IV SCH ×2 (08:44→20:37)
[2021-12-24] MEDS: HEPARIN SODIUM,PORCINE 5,000 UNITS/ML VIAL SQ SCH ×3 (08:44→23:52)
[2021-12-24 09:41] LABS: ANION GAP 3 mmol/L (8-16); CALCIUM, TOTAL 8.4 mg/dL (8.8-10.5); CARBON DIOXIDE 30 mmol/L (22-29); CHLORIDE 96 mmol/L (98-107); CREATININE 0.75 mg/dL (0.60-1.30); GLOMERULAR FILTR. RATE CALC > 60 mL/min (>60); GLUCOSE,RANDOM 221 mg/dL (70-110); POTASSIUM 3.9 mmol/L (3.5-5.1); SODIUM SERUM 129 mmol/L (136-145); UREA NITROGEN, BLOOD 16 mg/dL (7-18)
[2021-12-24 11:17] VITALS: BP 108/72
[2021-12-24] MEDS: INSULIN LISPRO 100 UNITS/ML SQ PRN ×3 (12:25→20:46)
[2021-12-24] MEDS: ONDANSETRON HCL 4 MG/2 ML VIAL IVP PRN (13:37)
[2021-12-24] MEDS: MAGNESIUM HYDROXIDE SUSPENSION 30 ML UDCUP PO PRN (13:37)
[2021-12-24 14:57] VITALS: BP 139/84
[2021-12-24 18:02] LABS: GLUCOMETER DEV NAME(LOC) 5N.3; GLUCOSE,POINT OF CARE 184 MG/DL (70-110)
[2021-12-24 18:02] LABS: GLUCOMETER DEV NAME(LOC) 5N.3; GLUCOSE,POINT OF CARE 199 MG/DL (70-110)
[2021-12-24 19:10] VITALS: BP 136/86
[2021-12-24] MEDS: ZOLPIDEM TARTRATE 5 MG TABLET PO PRN (20:34)
[2021-12-24] MEDS: INSULIN GLARGINE,HUM.REC.ANLOG 100 UNITS/ML SQ SCH (20:51)
[2021-12-24 23:44] VITALS: BP 110/87
[2021-12-25] MEDS: ACETAMINOPHEN 325 MG TABLET PO PRN ×5 (04:18→21:37)
[2021-12-25] MEDS: PIPERACILLIN/TAZO 3.375 GM/D5W 50 ML IV SCH ×4 (05:00→20:03)
[2021-12-25 05:25] VITALS: BP 129/73
[2021-12-25 05:26] LABS: GLUCOMETER DEV NAME(LOC) 5N.1C; GLUCOSE,POINT OF CARE 223 MG/DL (70-110)
[2021-12-25] MEDS: INSULIN LISPRO 100 UNITS/ML SQ PRN ×4 (05:35→20:05)
[2021-12-25] MEDS: MORPHINE SULFATE 2 MG/ML SYRINGE IVP PRN ×4 (06:54→20:00)
[2021-12-25] MEDS: HEPARIN SODIUM,PORCINE 5,000 UNITS/ML VIAL SQ SCH ×2 (08:05→17:46)
[2021-12-25] MEDS: DOCUSATE SODIUM 100 MG CAPSULE PO SCH ×3 (08:05→20:00)
[2021-12-25] MEDS: METHADONE HCL 10 MG TABLET PO SCH (08:05)
[2021-12-25 09:01] LABS: GLUCOMETER DEV NAME(LOC) 5N.1C; GLUCOSE,POINT OF CARE 187 MG/DL (70-110)
[2021-12-25] MEDS: VANCOMYCIN HCL 1 GM/D5% WATER 200 ML IV SCH ×2 (10:09→19:59)
[2021-12-25 10:46] LABS: ANION GAP 4 mmol/L (8-16); CALCIUM, TOTAL 8.5 mg/dL (8.8-10.5); CARBON DIOXIDE 29 mmol/L (22-29); CHLORIDE 95 mmol/L (98-107); CREATININE 0.77 mg/dL (0.60-1.30); GLOMERULAR FILTR. RATE CALC > 60 mL/min (>60); GLUCOSE,RANDOM 229 mg/dL (70-110); POTASSIUM 4.2 mmol/L (3.5-5.1); SODIUM SERUM 128 mmol/L (136-145); UREA NITROGEN, BLOOD 14 mg/dL (7-18); VANCOMYCIN,RANDOM 12.9 mcg/mL (25.0-50.0)
[2021-12-25 11:38] VITALS: BP 120/74
[2021-12-25 11:50] LABS: BASOPHILS % (AUTO) 1.2 % (0.0-2.0); EOSINOPHILS % (AUTO) 0.5 % (1.0-6.0); HEMATOCRIT 31.8 % (41-53); LYMPHOCYTES # (AUTO) 1.3 K/uL (1.0-4.8); LYMPHOCYTES % (AUTO) 8.3 % (22.0-44.0); MEAN CORPUSCULAR HEMOGLOBIN 27.5 pg (26.0-34.0); MEAN CORPUSCULAR HGB CONC 32.9 G/dL (31.0-37.0); MEAN CORPUSCULAR VOLUME 84 fL (80-100); MONOCYTES % (AUTO) 6.1 % (2.0-9.0); NEUTROPHILS # (AUTO) 13.6 K/uL (1.8-7.7); NEUTROPHILS % (AUTO) 83.9 % (40.0-70.0); PLATELET COUNT (AUTO) 526 K/uL (150-450); RED BLOOD CELL COUNT(AUTO) 3.81 MIL/uL (4.50-5.90); RED CELL DISTRIBUTION WIDTH 16.2 % (11.5-14.5)
[2021-12-25 12:03] LABS: HEMOGLOBIN 10.5 g/dL (13.5-17.5)
[2021-12-25 12:36] LABS: GLUCOMETER DEV NAME(LOC) 5N.1C; GLUCOSE,POINT OF CARE 196 MG/DL (70-110)
[2021-12-25] MEDS: LACTOBACILLUS ACIDOPHILUS/BULGARICUS GRANULES PACKET PO SCH ×2 (17:31→20:00)
[2021-12-25 17:50] LABS: GLUCOMETER DEV NAME(LOC) 5N.1C; GLUCOSE,POINT OF CARE 151 MG/DL (70-110)
[2021-12-25] MEDS: ZOLPIDEM TARTRATE 5 MG TABLET PO PRN (19:59)
[2021-12-25] MEDS: INSULIN GLARGINE,HUM.REC.ANLOG 100 UNITS/ML SQ SCH (20:06)
[2021-12-25 20:45] VITALS: BP 152/78
[2021-12-25 22:26] LABS: GLUCOMETER DEV NAME(LOC) 5N.1C; GLUCOSE,POINT OF CARE 171 MG/DL (70-110)
[2021-12-26] MEDS: HEPARIN SODIUM,PORCINE 5,000 UNITS/ML VIAL SQ SCH ×3 (00:46→16:17)
[2021-12-26] MEDS: MORPHINE SULFATE 2 MG/ML SYRINGE IVP PRN ×5 (00:46→20:20)
[2021-12-26] MEDS: ACETAMINOPHEN 325 MG TABLET PO PRN ×5 (01:34→18:40)
[2021-12-26 04:50] VITALS: BP 140/74
[2021-12-26] MEDS: PIPERACILLIN/TAZO 3.375 GM/D5W 50 ML IV SCH ×4 (04:50→22:34)
[2021-12-26] MEDS: INSULIN LISPRO 100 UNITS/ML SQ PRN ×3 (05:56→17:34)
[2021-12-26 06:14] LABS: BASOPHILS % (AUTO) 0.2 % (0.0-2.0); EOSINOPHILS % (AUTO) 0.7 % (1.0-6.0); HEMOGLOBIN 9.6 g/dL (13.5-17.5); LYMPHOCYTES # (AUTO) 1.4 K/uL (1.0-4.8); LYMPHOCYTES % (AUTO) 9.9 % (22.0-44.0); MEAN CORPUSCULAR HEMOGLOBIN 28.4 pg (26.0-34.0); MEAN CORPUSCULAR HGB CONC 34.2 G/dL (31.0-37.0); MEAN CORPUSCULAR VOLUME 83 fL (80-100); MONOCYTES % (AUTO) 7.1 % (2.0-9.0); NEUTROPHILS # (AUTO) 11.8 K/uL (1.8-7.7); NEUTROPHILS % (AUTO) 82.1 % (40.0-70.0); PLATELET COUNT (AUTO) 475 K/uL (150-450); RED BLOOD CELL COUNT(AUTO) 3.38 MIL/uL (4.50-5.90); RED CELL DISTRIBUTION WIDTH 15.8 % (11.5-14.5)
[2021-12-26 06:25] LABS: ANION GAP 7 mmol/L (8-16); CALCIUM, TOTAL 8.5 mg/dL (8.8-10.5); CARBON DIOXIDE 28 mmol/L (22-29); CHLORIDE 94 mmol/L (98-107); CREATININE 0.75 mg/dL (0.60-1.30); GLOMERULAR FILTR. RATE CALC > 60 mL/min (>60); GLUCOSE,RANDOM 157 mg/dL (70-110); POTASSIUM 4.3 mmol/L (3.5-5.1); SODIUM SERUM 129 mmol/L (136-145); UREA NITROGEN, BLOOD 10 mg/dL (7-18)
[2021-12-26 08:18] VITALS: BP 134/69
[2021-12-26] MEDS: VANCOMYCIN HCL 1 GM/D5% WATER 200 ML IV SCH ×2 (08:20→20:14)
[2021-12-26 08:26] LABS: GLUCOMETER DEV NAME(LOC) 5N.3; GLUCOSE,POINT OF CARE 170 MG/DL (70-110)
[2021-12-26] MEDS: DOCUSATE SODIUM 100 MG CAPSULE PO SCH ×4 (09:00→18:27)
[2021-12-26] MEDS: METHADONE HCL 10 MG TABLET PO SCH (09:28)
[2021-12-26] MEDS: LACTOBACILLUS ACIDOPHILUS/BULGARICUS GRANULES PACKET PO SCH ×3 (09:28→20:14)
[2021-12-26 12:00] VITALS: BP 138/76
[2021-12-26 13:26] LABS: GLUCOMETER DEV NAME(LOC) 5N.1C; GLUCOSE,POINT OF CARE 204 MG/DL (70-110)
[2021-12-26 15:28] VITALS: BP 141/77
[2021-12-26 17:31] LABS: GLUCOMETER DEV NAME(LOC) 5N.3; GLUCOSE,POINT OF CARE 171 MG/DL (70-110)
[2021-12-26 20:00] VITALS: BP 157/76
[2021-12-26] MEDS ORDERED: BACL10TA PO (21:58)
[2021-12-26] MEDS ORDERED: SUCR1TAB28 PO (21:58)
[2021-12-26] MEDS ORDERED: OMEP40CA21 PO (21:58)
[2021-12-26] MEDS ORDERED: DOXA1TAB6 PO (21:58)
[2021-12-26] MEDS ORDERED: DOXA8 PO (21:58)
[2021-12-26] MEDS ORDERED: TIZA-211 PO (21:58)
[2021-12-26] MEDS: INSULIN GLARGINE,HUM.REC.ANLOG 100 UNITS/ML SQ SCH (22:14)
[2021-12-26] MEDS: ZOLPIDEM TARTRATE 5 MG TABLET PO PRN (22:34)
[2021-12-26] MEDS: GABAPENTIN 300 MG CAPSULE PO SCH (22:34)
[2021-12-26] MEDS ORDERED: SODIUM CHLORIDE 0.9% 250 ML IV ONE (22:43)
[2021-12-27] VITALS: BP 127/72
[2021-12-27] MEDS: MORPHINE SULFATE 2 MG/ML SYRINGE IVP PRN ×5 (00:41→20:11)
[2021-12-27] MEDS: HEPARIN SODIUM,PORCINE 5,000 UNITS/ML VIAL SQ SCH ×3 (00:41→16:58)
[2021-12-27] MEDS: ACETAMINOPHEN 325 MG TABLET PO PRN ×3 (01:54→22:13)
[2021-12-27 02:16] LABS: GLUCOMETER DEV NAME(LOC) 5N.1C; GLUCOSE,POINT OF CARE 241 MG/DL (70-110)
[2021-12-27 04:00] VITALS: BP 114/66
[2021-12-27] MEDS: PIPERACILLIN/TAZO 3.375 GM/D5W 50 ML IV SCH ×4 (04:55→21:41)
[2021-12-27] MEDS: INSULIN LISPRO 100 UNITS/ML SQ PRN ×3 (06:13→17:07)
[2021-12-27 07:09] LABS: BASOPHILS % (AUTO) 0.3 % (0.0-2.0); EOSINOPHILS % (AUTO) 0.8 % (1.0-6.0); HEMATOCRIT 27.6 % (41-53); HEMOGLOBIN 9.3 g/dL (13.5-17.5); LYMPHOCYTES # (AUTO) 1.9 K/uL (1.0-4.8); LYMPHOCYTES % (AUTO) 14.7 % (22.0-44.0); MEAN CORPUSCULAR HEMOGLOBIN 28.1 pg (26.0-34.0); MEAN CORPUSCULAR HGB CONC 33.6 G/dL (31.0-37.0); MEAN CORPUSCULAR VOLUME 84 fL (80-100); MONOCYTES # (AUTO) 0.9 K/uL (0.1-1.0); MONOCYTES % (AUTO) 7.3 % (2.0-9.0); NEUTROPHILS # (AUTO) 9.7 K/uL (1.8-7.7); NEUTROPHILS % (AUTO) 76.9 % (40.0-70.0); PLATELET COUNT (AUTO) 553 K/uL (150-450); RED BLOOD CELL COUNT(AUTO) 3.29 MIL/uL (4.50-5.90); RED CELL DISTRIBUTION WIDTH 16.3 % (11.5-14.5)
[2021-12-27 07:16] LABS: ANION GAP 4 mmol/L (8-16); CALCIUM, TOTAL 8.2 mg/dL (8.8-10.5); CARBON DIOXIDE 27 mmol/L (22-29); CHLORIDE 97 mmol/L (98-107); CREATININE 0.77 mg/dL (0.60-1.30); GLOMERULAR FILTR. RATE CALC > 60 mL/min (>60); GLUCOSE,RANDOM 182 mg/dL (70-110); POTASSIUM 4.3 mmol/L (3.5-5.1); SODIUM SERUM 128 mmol/L (136-145); UREA NITROGEN, BLOOD 8 mg/dL (7-18)
[2021-12-27 08:07] LABS: GLUCOMETER DEV NAME(LOC) 5N.1C; GLUCOSE,POINT OF CARE 181 MG/DL (70-110)
[2021-12-27] MEDS: METHADONE HCL 10 MG TABLET PO SCH (08:38)
[2021-12-27] MEDS: LACTOBACILLUS ACIDOPHILUS/BULGARICUS GRANULES PACKET PO SCH ×3 (08:38→20:10)
[2021-12-27] MEDS: VANCOMYCIN HCL 1 GM/D5% WATER 200 ML IV SCH ×2 (08:39→20:11)
[2021-12-27] MEDS: DOCUSATE SODIUM 100 MG CAPSULE PO SCH ×3 (08:40→20:11)
[2021-12-27] MEDS ORDERED: SULF-261 PO (11:57)
[2021-12-27] MEDS ORDERED: INSLAN SQ (11:57)
[2021-12-27] MEDS ORDERED: CEPH500C3 PO (11:57)
[2021-12-27 12:26] LABS: GLUCOMETER DEV NAME(LOC) 5S.2B; GLUCOSE,POINT OF CARE 203 MG/DL (70-110)
[2021-12-27 16:26] LABS: GLUCOMETER DEV NAME(LOC) 5N.1C; GLUCOSE,POINT OF CARE 181 MG/DL (70-110)
[2021-12-27 17:33] VITALS: BP 104/60
[2021-12-27 19:10] VITALS: BP 102/61
[2021-12-27] MEDS: INSULIN GLARGINE,HUM.REC.ANLOG 100 UNITS/ML SQ SCH (20:13)
[2021-12-27 20:52] LABS: GLUCOMETER DEV NAME(LOC) 5N.1C; GLUCOSE,POINT OF CARE 186 MG/DL (70-110)
[2021-12-27] MEDS ORDERED: GABAPENTIN 300 MG CAPSULE PO SCH (21:00)
[2021-12-27] MEDS: GABAPENTIN 300 MG CAPSULE PO SCH (21:41)
[2021-12-27] MEDS: ZOLPIDEM TARTRATE 5 MG TABLET PO PRN (22:13)
[2021-12-28] MEDS: HEPARIN SODIUM,PORCINE 5,000 UNITS/ML VIAL SQ SCH
[2021-12-28 00:10] VITALS: BP 112/60
[2021-12-28] MEDS: MORPHINE SULFATE 2 MG/ML SYRINGE IVP PRN ×2 (01:00→05:29)
[2021-12-28] MEDS: PIPERACILLIN/TAZO 3.375 GM/D5W 50 ML IV SCH (04:26)
[2021-12-28] MEDS: ACETAMINOPHEN 325 MG TABLET PO PRN (04:26)
[2021-12-28 04:45] VITALS: BP 118/60
[2021-12-28] MEDS: INSULIN LISPRO 100 UNITS/ML SQ PRN (05:30)
[2021-12-28 05:58] LABS: BASOPHILS % (AUTO) 0.2 % (0.0-2.0); EOSINOPHILS % (AUTO) 0.8 % (1.0-6.0); HEMATOCRIT 27.9 % (41-53); HEMOGLOBIN 9.4 g/dL (13.5-17.5); LYMPHOCYTES # (AUTO) 1.4 K/uL (1.0-4.8); LYMPHOCYTES % (AUTO) 13.4 % (22.0-44.0); MEAN CORPUSCULAR HEMOGLOBIN 28.4 pg (26.0-34.0); MEAN CORPUSCULAR HGB CONC 33.8 G/dL (31.0-37.0); MEAN CORPUSCULAR VOLUME 84 fL (80-100); MONOCYTES # (AUTO) 0.8 K/uL (0.1-1.0); MONOCYTES % (AUTO) 7.1 % (2.0-9.0); NEUTROPHILS # (AUTO) 8.4 K/uL (1.8-7.7); NEUTROPHILS % (AUTO) 78.5 % (40.0-70.0); PLATELET COUNT (AUTO) 578 K/uL (150-450); RED BLOOD CELL COUNT(AUTO) 3.32 MIL/uL (4.50-5.90)
[2021-12-28 06:11] LABS: ANION GAP 3 mmol/L (8-16); CALCIUM, TOTAL 8.3 mg/dL (8.8-10.5); CARBON DIOXIDE 28 mmol/L (22-29); CHLORIDE 96 mmol/L (98-107); CREATININE 0.92 mg/dL (0.60-1.30); GLOMERULAR FILTR. RATE CALC > 60 mL/min (>60); GLUCOSE,RANDOM 276 mg/dL (70-110); POTASSIUM 4.4 mmol/L (3.5-5.1); SODIUM SERUM 127 mmol/L (136-145); THYROID STIMULATING HORMONE 1.26 uIU/mL (0.36-3.74); UREA NITROGEN, BLOOD 11 mg/dL (7-18); VANCOMYCIN,RANDOM 15.3 mcg/mL (25.0-50.0)
[2021-12-28 20:06] LABS: GLUCOMETER DEV NAME(LOC) 5S.2B; GLUCOSE,POINT OF CARE 270 MG/DL (70-110)
== END 2021-12-28 07:00 | disposition home or self-care (01) | DRG 720 ==
LOC: EMS 18:37 → 5S 22:00
PROVIDERS: ADMIT Internal Medicine; ATTEND Internal Medicine
DX: A41.9 Sepsis, unspecified organism (principal); N17.0 Acute kidney failure with tubular necrosis; E44.0 Moderate protein-calorie malnutrition; E87.1 Hypo-osmolality and hyponatremia; E11.22 Type 2 diabetes mellitus with diabetic chronic kidney disease; E11.65 Type 2 diabetes mellitus with hyperglycemia; D64.9 Anemia, unspecified; E87.6 Hypokalemia; R65.20 Severe sepsis without septic shock; L03.114 Cellulitis of left upper limb; Z68.25 Body mass index [BMI] 25.0-25.9, adult; N18.9 Chronic kidney disease, unspecified; F19.10 Other psychoactive substance abuse, uncomplicated; M79.632 Pain in left forearm; R80.9 Proteinuria, unspecified; F17.210 Nicotine dependence, cigarettes, uncomplicated; F11.10 Opioid abuse, uncomplicated; F15.10 Other stimulant abuse, uncomplicated; Z90.49 Acquired absence of other specified parts of digestive tract; Z91.14 Patient's other noncompliance with medication regimen; Z79.4 Long term (current) use of insulin; Z79.84 Long term (current) use of oral hypoglycemic drugs; Z20.822 Contact with and (suspected) exposure to COVID-19
CPT/HCPCS: 36600; 73200; 76770; 80048; 80053; 80202; 81001; 81003; 82043; 82570; 82805; 82962; 83036; 83540; 83550; 83605; 83735; 83930; 83935; 84100; 84300; 84443; 84540; 85025; 85045; 87040; 87081; 99291; J1644; J1815; J2270; J2405; J2543; J3370; J3480; J3490; J7030; J7050; J7060; J7120

== ENCOUNTER 2022-04-23 21:39 | Emergency (ER) | payer MEDICAID ==
[~2022-04-23] VITALS: Ht 157.5 cm; Wt 66.0 kg
[~2022-04-23 21:39] MED LIST changes: +BACL10TA PO; +CEPH-558 PO; +DOXA1TAB9 PO; +DOXA8 PO; +INSLAN SQ; +OMEP40CA21 PO; +SUCR1TAB28 PO; +SULF-261 PO; +TIZA-211 PO
[2022-04-23] MEDS ORDERED: METH5SOL3 PO (21:48)
[2022-04-23] MEDS: IBUPROFEN 600 MG TABLET PO ONE (22:31)
[2022-04-24 00:04] VITALS: BP 142/89
== END 2022-04-24 00:46 | disposition home or self-care (01) ==
LOC: EMS 21:42
DX: S09.90XA Unspecified injury of head, initial encounter (principal); E11.9 Type 2 diabetes mellitus without complications; F15.90 Other stimulant use, unspecified, uncomplicated; F17.210 Nicotine dependence, cigarettes, uncomplicated; F11.90 Opioid use, unspecified, uncomplicated; Z86.2 Personal history of diseases of the blood and blood-forming organs and certain disorders involving the immune mechanism; Z90.49 Acquired absence of other specified parts of digestive tract; Z98.890 Other specified postprocedural states; V19.9XXA Pedal cyclist (driver) (passenger) injured in unspecified traffic accident, initial encounter; Y93.89 Activity, other specified; Y92.89 Other specified places as the place of occurrence of the external cause; Y99.8 Other external cause status
CPT/HCPCS: 70450; 72125; 99284

== ENCOUNTER 2022-04-26 03:09 | Emergency (ER) | payer MEDICAID ==
[~2022-04-26] VITALS: Ht 165.1 cm; Wt 65.5 kg
[~2022-04-26 03:09] MED LIST changes: +METH5SOL3 PO
[2022-04-26] MEDS ORDERED: ONDANSETRON HCL 4 MG/2 ML VIAL IVP ONE (04:30)
[2022-04-26] MEDS ORDERED: SODIUM CHLORIDE 0.9% 1,000 ML IV ONE (04:30)
[2022-04-26] MEDS ORDERED: ONDANSETRON HCL 4 MG/2 ML VIAL IM ONE (05:00)
[2022-04-26 05:10] LABS: BASOPHILS % (AUTO) 0.6 % (0.0-2.0); EOSINOPHILS % (AUTO) 1.3 % (1.0-6.0); HEMATOCRIT 34.8 % (41-53); HEMOGLOBIN 11.9 g/dL (13.5-17.5); LYMPHOCYTES # (AUTO) 1.7 K/uL (1.0-4.8); LYMPHOCYTES % (AUTO) 28.9 % (22.0-44.0); MEAN CORPUSCULAR HEMOGLOBIN 26.8 pg (26.0-34.0); MEAN CORPUSCULAR HGB CONC 34.2 G/dL (31.0-37.0); MEAN CORPUSCULAR VOLUME 79 fL (80-100); MONOCYTES # (AUTO) 0.5 K/uL (0.1-1.0); MONOCYTES % (AUTO) 8.6 % (2.0-9.0); NEUTROPHILS # (AUTO) 3.5 K/uL (1.8-7.7); NEUTROPHILS % (AUTO) 60.6 % (40.0-70.0); PLATELET COUNT (AUTO) 316 K/uL (150-450); RED BLOOD CELL COUNT(AUTO) 4.43 MIL/uL (4.50-5.90); RED CELL DISTRIBUTION WIDTH 15.7 % (11.5-14.5)
[2022-04-26 05:20] LABS: ANION GAP 10 mmol/L (8-16); CALCIUM, TOTAL 9.8 mg/dL (8.8-10.5); CARBON DIOXIDE 24 mmol/L (22-29); CHLORIDE 102 mmol/L (98-107); CREATININE 0.88 mg/dL (0.60-1.30); GLUCOSE,RANDOM 170 mg/dL (70-110); POTASSIUM 3.1 mmol/L (3.5-5.1); SODIUM SERUM 136 mmol/L (136-145); UREA NITROGEN, BLOOD 22 mg/dL (7-18)
[2022-04-26 05:21] LABS: GLOMERULAR FILTR. RATE CALC > 60 mL/min (>60)
[2022-04-26 05:25] LABS: ALANINE AMINOTRANSFERASE 46 U/L (12-78); ALBUMIN 3.8 g/dL (3.4-5.0); ALKALINE PHOSPHATASE 125 U/L (46-116); ASPARTATE AMINOTRANSFERASE 14 U/L (15-37); BILIRUBIN,TOTAL 0.2 mg/dL (0.1-1.0); LIPASE 147 U/L (73-393); TOTAL PROTEIN, SERUM 7.6 g/dL (6.4-8.2)
[2022-04-26] MEDS ORDERED: FAMOTIDINE 20 MG TABLET PO ONE (05:45)
[2022-04-26] MEDS ORDERED: POTASSIUM CHLORIDE 10% 40 MEQ/30 ML LIQUID UDCUP PO ONE (05:45)
[2022-04-26] MEDS ORDERED: ACETAMINOPHEN 500 MG TABLET PO ONE (05:45)
[2022-04-26] MEDS ORDERED: MAG HYDROX/AL HYDROX/SIMETH ES 30 ML SUSPENSION UDCUP PO ONE (05:45)
[2022-04-26] MEDS ORDERED: OMEP40CA21 PO (05:49)
[2022-04-26] MEDS ORDERED: MAG30ORA11 PO (05:49)
[2022-04-26] MEDS ORDERED: ACET-66 PO (05:49)
[2022-04-26 07:24] VITALS: BP 130/68
== END 2022-04-26 07:32 | disposition home or self-care (01) ==
LOC: EMS 03:12
DX: E87.6 Hypokalemia (principal); R10.13 Epigastric pain; E11.43 Type 2 diabetes mellitus with diabetic autonomic (poly)neuropathy; K31.84 Gastroparesis; F10.20 Alcohol dependence, uncomplicated; F17.210 Nicotine dependence, cigarettes, uncomplicated; F15.10 Other stimulant abuse, uncomplicated; Z90.49 Acquired absence of other specified parts of digestive tract; Z79.891 Long term (current) use of opiate analgesic
CPT/HCPCS: 99284; 74176; 80053; 83690; 84484; 85025; 36415; 96372; G0480; J2405; J7030

== ENCOUNTER 2022-05-07 22:26 | Emergency (ER) | payer MEDICAID ==
[~2022-05-07] VITALS: Ht 165.1 cm; Wt 61.4 kg
[~2022-05-07 22:26] MED LIST changes: +ACET-66 PO; +MAG30ORA11 PO
[2022-05-07 23:06] LABS: GLUCOMETER DEV NAME(LOC) ERT.5; GLUCOSE,POINT OF CARE 226 MG/DL (70-110)
[2022-05-08] MEDS ORDERED: MUPIROCIN CALCIUM 2% 22 GM OINTMENT TP ONE
[2022-05-08] MEDS ORDERED: HydrOXYzine PAMOATE 50 MG CAPSULE PO ONE
[2022-05-08] MEDS ORDERED: HYDR50CA7 PO (00:28)
[2022-05-08 01:08] VITALS: BP 135/75
== END 2022-05-08 01:55 | disposition home or self-care (01) ==
LOC: EMS 22:26
DX: S20.312A Abrasion of left front wall of thorax, initial encounter (principal); E11.65 Type 2 diabetes mellitus with hyperglycemia; F15.90 Other stimulant use, unspecified, uncomplicated; Z79.899 Other long term (current) drug therapy; X58.XXXA Exposure to other specified factors, initial encounter; Y93.89 Activity, other specified; Y92.89 Other specified places as the place of occurrence of the external cause; Y99.8 Other external cause status
CPT/HCPCS: 82962; 99283

== ENCOUNTER 2022-12-28 10:46 | Emergency (ER) | payer MEDICAID ==
[~2022-12-28] VITALS: Ht 162.6 cm; Wt 63.6 kg
[~2022-12-28 10:46] MED LIST changes: +HYDR50CA7 PO
[2022-12-28] MEDS ORDERED: ACETAMINOPHEN 500 MG TABLET PO ONE (12:30)
[2022-12-28] MEDS ORDERED: LIDOCAINE 1% 10 ML VIAL ID ONE (12:30)
[2022-12-28] MEDS ORDERED: PERTUSS(ACELL),DIPH,TET VAC/PF 0.5 ML SYRINGE IM. ONE (12:30)
[2022-12-28 13:29] VITALS: BP 145/84
== END 2022-12-28 13:42 | disposition home or self-care (01) ==
LOC: EMS 10:47
DX: S61.211A Laceration without foreign body of left index finger without damage to nail, initial encounter (principal); E11.9 Type 2 diabetes mellitus without complications; I10 Essential (primary) hypertension; F17.210 Nicotine dependence, cigarettes, uncomplicated; F15.90 Other stimulant use, unspecified, uncomplicated; Z98.890 Other specified postprocedural states; Z90.49 Acquired absence of other specified parts of digestive tract; W26.0XXA Contact with knife, initial encounter; Y93.89 Activity, other specified; Y92.89 Other specified places as the place of occurrence of the external cause; Y99.8 Other external cause status
CPT/HCPCS: 99283; 90715; 90471; 12001; J3490

== ENCOUNTER 2024-02-24 06:39 | Emergency (ER) | payer MEDICAID ==
[~2024-02-24] VITALS: Ht 152.4 cm; Wt 61.8 kg
[~2024-02-24 06:39] MED LIST changes: +ACET-2247 PO; -ACET-66 PO; -AMLO5TAB66 PO; -ATOR40TA71 PO; -BACL10TA PO; -CEPH-558 PO; +CLON0.1T2 PO; +DOCU-385 PO; -DOXA1TAB9 PO; -DOXA8 PO; +FAMO20 PO; -GABA-1181 PO; +GABA600T10 PO; -GLIP10TA9 PO; -HYDR25TA PO; -HYDR50CA7 PO; -INSLAN SQ; +LISI-893 PO; -LISI40TA9 PO; +LISI5TAB21 PO; -MAG30ORA11 PO; -METH5SOL3 PO; -MULT-199 PO; -OMEP40CA21 PO; +QUET100T PO; -QUET400T13 PO; -SUCR1TAB28 PO; -SULF-261 PO; -TIZA-211 PO; +TRAM50TA5 PO
[2024-02-24 06:45] VITALS: BP 139/83; PULSE 71; RESP 15; TEMP 97.5
[2024-02-24] MEDS: CLINDAMYCIN PHOS 150 MG/ML 4 ML VIAL IM ONE (07:42)
[2024-02-24] MEDS ORDERED: CLIN-142 PO (07:43)
[2024-02-24] MEDS: BACITRACIN 28 GM OINTMENT TP ONE (08:10)
== END 2024-02-24 08:28 | disposition home or self-care (01) ==
LOC: EMS 06:40
DX: L03.116 Cellulitis of left lower limb (principal); L03.115 Cellulitis of right lower limb; I12.9 Hypertensive chronic kidney disease with stage 1 through stage 4 chronic kidney disease, or unspecified chronic kidney disease; E11.22 Type 2 diabetes mellitus with diabetic chronic kidney disease; N18.9 Chronic kidney disease, unspecified; Z79.899 Other long term (current) drug therapy
CPT/HCPCS: 99283; 96372; J3490

== ENCOUNTER 2024-03-02 08:43 | Emergency (ER) | payer MEDICAID ==
[~2024-03-02 08:43] MED LIST changes: +CLIN-142 PO
== END 2024-03-02 09:29 | disposition left against medical advice (07) ==
LOC: EMS 08:44
DX: Z53.21 Procedure and treatment not carried out due to patient leaving prior to being seen by health care provider (principal)

== ENCOUNTER 2024-03-07 10:52 | Emergency (ER) | payer MEDICAID ==
[~2024-03-07] VITALS: Ht 170.2 cm; Wt 65.0 kg
[2024-03-07 11:40] VITALS: TEMP 98.2
[2024-03-07 15:01] LABS: BASOPHILS % (AUTO) 0.4 % (0.0-2.0); EOSINOPHILS % (AUTO) 1.4 % (1.0-6.0); HEMATOCRIT 35.1 % (41-53); HEMOGLOBIN 11.5 g/dL (13.5-17.5); LYMPHOCYTES # (AUTO) 1.6 K/uL (1.0-4.8); LYMPHOCYTES % (AUTO) 19.7 % (22.0-44.0); MEAN CORPUSCULAR HEMOGLOBIN 24.8 pg (26.0-34.0); MEAN CORPUSCULAR HGB CONC 32.8 G/dL (31.0-37.0); MEAN CORPUSCULAR VOLUME 76 fL (80-100); MONOCYTES # (AUTO) 0.5 K/uL (0.1-1.0); MONOCYTES % (AUTO) 6.8 % (2.0-9.0); NEUTROPHILS # (AUTO) 5.7 K/uL (1.8-7.7); NEUTROPHILS % (AUTO) 71.7 % (40.0-70.0); PLATELET COUNT (AUTO) 318 K/uL (150-450); RED BLOOD CELL COUNT(AUTO) 4.65 MIL/uL (4.50-5.90)
[2024-03-07 15:21] LABS: ANION GAP 10 mmol/L (8-16); CALCIUM, TOTAL 9.4 mg/dL (8.8-10.5); CARBON DIOXIDE 26 mmol/L (22-29); CHLORIDE 96 mmol/L (98-107); GLOMERULAR FILTR. RATE CALC > 60 mL/min (>60); GLUCOSE,RANDOM 178 mg/dL (70-110); POTASSIUM 4.3 mmol/L (3.5-5.1); SODIUM SERUM 132 mmol/L (136-145); UREA NITROGEN, BLOOD 15 mg/dL (7-18)
[2024-03-07 15:27] LABS: ALANINE AMINOTRANSFERASE 18 U/L (12-78); ALBUMIN 3.2 g/dL (3.4-5.0); ALKALINE PHOSPHATASE 135 U/L (46-116); ASPARTATE AMINOTRANSFERASE 15 U/L (15-37); BILIRUBIN,TOTAL 0.4 mg/dL (0.1-1.0); LIPASE 19 U/L (16-77); TOTAL PROTEIN, SERUM 9.1 g/dL (6.4-8.2)
[2024-03-07 15:29] LABS: LACTIC ACID 1.2 mmol/L (0.4-2.0)
[2024-03-07 15:41] LABS: TROPONIN I-HIGH SENSITIVITY 40 ng/L (<76)
[2024-03-07] MEDS ORDERED: POLY119P3 PO (16:20)
[2024-03-07] MEDS: MAGNESIUM CITRATE [LEMON] 300 ML ORAL SOLUTION PO ONE (17:07)
[2024-03-07 17:45] VITALS: BP 130/74; PULSE 76; RESP 16
== END 2024-03-07 21:26 | disposition home or self-care (01) ==
LOC: EMS 10:52
DX: K59.00 Constipation, unspecified (principal); M19.90 Unspecified osteoarthritis, unspecified site; E11.9 Type 2 diabetes mellitus without complications; I10 Essential (primary) hypertension; F20.9 Schizophrenia, unspecified; G89.29 Other chronic pain; F15.90 Other stimulant use, unspecified, uncomplicated; F17.210 Nicotine dependence, cigarettes, uncomplicated; Z90.49 Acquired absence of other specified parts of digestive tract; Z59.00 Homelessness unspecified; Z98.890 Other specified postprocedural states
CPT/HCPCS: 74176; 80053; 82962; 83605; 83690; 84484; 85025; 99284

== ENCOUNTER 2024-03-31 01:42 | Emergency (ER) | payer MEDICAID ==
[~2024-03-31] VITALS: Ht 165.1 cm; Wt 63.6 kg
[~2024-03-31 01:42] MED LIST changes: -ACET-2247 PO; +AMOX-457 PO; -CLIN-142 PO; +DOXY-354 PO; -LISI5TAB21 PO; +POLY119P3 PO
[2024-03-31 02:11] VITALS: TEMP 97.7
[2024-03-31 02:21] LABS: GLUCOMETER DEV NAME(LOC) ERT.5; GLUCOSE,POINT OF CARE 253 MG/DL (70-110)
[2024-03-31] MEDS ORDERED: SULF-261 PO (02:30)
[2024-03-31] MEDS ORDERED: IBUP-1492 PO (02:30)
[2024-03-31] MEDS ORDERED: CEPH-558 PO (02:30)
[2024-03-31] MEDS ORDERED: ACET-3385 PO (02:30)
[2024-03-31] MEDS: ACETAMINOPHEN 500 MG TABLET PO ONE (02:40)
[2024-03-31] MEDS: KETOROLAC TROMETHAMINE 30 MG/ML VIAL IM ONE (02:40)
[2024-03-31] MEDS: SULFAMETHOX/TRIMETH DS 800-160 MG/TABLET PO ONE (02:40)
[2024-03-31] MEDS: CEPHALEXIN MONOHYDRATE 500 MG CAPSULE PO ONE (02:40)
[2024-03-31 05:00] VITALS: BP 135/64; PULSE 65; RESP 16
== END 2024-03-31 07:02 | disposition home or self-care (01) ==
LOC: EMS 01:42
DX: L03.115 Cellulitis of right lower limb (principal); E11.9 Type 2 diabetes mellitus without complications; I10 Essential (primary) hypertension; F20.9 Schizophrenia, unspecified; K80.20 Calculus of gallbladder without cholecystitis without obstruction; F17.210 Nicotine dependence, cigarettes, uncomplicated; F15.90 Other stimulant use, unspecified, uncomplicated; Z87.442 Personal history of urinary calculi; Z86.73 Personal history of transient ischemic attack (TIA), and cerebral infarction without residual deficits; Z90.49 Acquired absence of other specified parts of digestive tract
CPT/HCPCS: 99284; 82962; 96372; J1885

== ENCOUNTER 2024-07-27 02:54 | Emergency (ER) | payer MEDICAID ==
[~2024-07-27] VITALS: Ht 165.1 cm; Wt 59.5 kg
[~2024-07-27 02:54] MED LIST changes: +ACET-3385 PO; +CEPH-558 PO; +GABA-1404 PO; -GABA600T10 PO; +IBUP-1492 PO; +SULF-261 PO
[2024-07-27 03:06] VITALS: TEMP 97.8
[2024-07-27 03:32] VITALS: BP 142/79; PULSE 83; RESP 16; O2SAT 100
== END 2024-07-27 03:54 ==
LOC: EMS 02:56
DX: S00.90XD Unspecified superficial injury of unspecified part of head, subsequent encounter (principal); M19.90 Unspecified osteoarthritis, unspecified site; E11.9 Type 2 diabetes mellitus without complications; I10 Essential (primary) hypertension; G89.29 Other chronic pain; F20.9 Schizophrenia, unspecified; F17.210 Nicotine dependence, cigarettes, uncomplicated; F15.90 Other stimulant use, unspecified, uncomplicated; Z98.890 Other specified postprocedural states; Z90.49 Acquired absence of other specified parts of digestive tract; Z48.02 Encounter for removal of sutures; X58.XXXD Exposure to other specified factors, subsequent encounter
CPT/HCPCS: 82962; 99282